=== PATIENT | male | born 1970 | race Two or more races ===

== ENCOUNTER 2025-01-02 20:04 | Inpatient (IN) | payer MEDICAID, OTHER ==
[~2025-01-02] VITALS: Ht 165.1 cm; Wt 70.2 kg
--- NOTE | 2025-01-02 21:12 | ED.PDOC ---
History of Present Illness HPI Comments 54-year-old Albanian-speaking male presents with relative for chief complaint of bilateral lower leg swelling with the associated blisters and purple discoloration and shortness of breath. Significant history for CAD, CHF, DM, HTN, NH, 2x CABG, and pacemaker. 3x week endorsement of symptoms following initial, unprovoked, atraumatic, and gradual onset. CABG and pacemaker placement was done, earlier this year, with the patient is on water pills for 1 month before running out. No recent travel or injuries. Patient denies having any chest pain, cough, congestion, numbness, tingling, or further associated symptoms. REVIEW OF SYSTEMS: General: No fever, no chills, or fatigue HEENT: No sore throat, no earache, no congestion, no neck pain. Cardiac: No chest pain. No palpitations. Lungs: Shortness of breath, no cough. GI: No nausea, no vomiting, no diarrhea, no constipation, no abdominal pain : No dysuria, frequency, or urgency. No hematuria. Musculoskeletal: Bilateral lower leg swelling Neuro: No headache, no dizziness, no weakness PHYSICAL EXAM: General: Awake, alert and oriented. No acute distress. Skin: Skin in warm, dry and intact. Appropriate color for ethnicity. HEENT: The head is normocephalic and atraumatic. Conjunctivae are clear without exudates or hemorrhage. Sclera is non-icteric. EOM are intact. No signs of nystagmus. Eyelids are normal in appearance without swelling or lesions. Oral mucosa is pink and moist Neck: The neck is supple with normal range of motion. No JVD. Cardiac: Heart rate and rhythm are normal. No murmurs, gallops, or rubs are auscultated. Respiratory: No signs of respiratory distress. Lung sounds are clear but diminished at bases, bilaterally; without rales, rhonchi, or wheezes. Abdominal: Abdomen is soft, non-tender without distention, guarding or rigidity. Bowel sounds are present and normoactive in all four quadrants. Extremities: Bilateral lower extremity weeping edema. Blisters and purple discoloration to bilateral lower legs, No rash, no itching. Neurological: The patient is awake, alert and oriented to person, place, and time with normal speech. Speech is clear. There is no facial asymmetry. Psychiatric: Appropriate mood and affect. Good judgement and insight. Chief Complaint: Extremity Swelling Time Seen by MD: 21:00 Reviewed Notes: Nurses Notes, Medications, Allergies Allergies: Coded Allergies: NO KNOWN ALLERGIES (Unverified , 01/02/25) Information Source: Patient, Relative Mode of Arrival: Ambulatory Severity: Moderate Timing: Hours Duration: Since onset Prehospital treatment: None Past Medical History PAST MEDICAL HISTORY: CAD, CHF, DM, HTN, NH Surgical History: CABG (2X), Pacemaker Was a procedure done? Was a procedure done?: No Differential Dx Considerations may include: Differential diagnoses considered includebut arenot limited to acute Bronchitis, Asthma, COPD, Pneumothorax, PE, CHF, Pulmonary HTN, Anemia, CO Poisoning, Methemoglobinemia, Hyperventilation, Metabolic Acidosis, Pulmonary Edema, Pneumonia, ACS, Pericardial Tamponade, Anxiety, other X-Ray, Labs, Meds, VS Vital Signs Date Time Temp Pulse Resp B/P (MAP) Pulse Ox O2 Delivery O2 Flow Rate FiO2 01/03/25 01:12 97.0 89 18 152/97 (115) 95 97.0 01/02/25 20:10 98.0 91 18 148/88 94 98.0 Lab Test 01/02/25 21:22 Range/Units White Blood Count 7.9 4.4-10.8 10^3/uL Red Blood Count 3.46 L 4.5-5.90 10^6/uL Hemoglobin 10.1 L 13.5-17.5 g/dL Hematocrit 30.4 L 41.0-53.0 % Mean Corpuscular Volume 87.7 80.0-100.0 fL Mean Corpuscular Hemoglobin 29.3 28.0-32.0 pg Mean Corpuscular Hemoglobin Concent 33.3 32.0-36.0 g/dL Red Cell Distribution Width 14.7 H 11.8-14.3 % Platelet Count 271 140-450 10^3/uL Mean Platelet Volume 6.8 L 6.9-10.8 fL Neutrophils (%) (Auto) 67.8 37.0-80.0 % Lymphocytes (%) (Auto) 20.8 10.0-50.0 % Monocytes (%) (Auto) 7.0 0.0-12.0 % Eosinophils (%) (Auto) 3.7 0.0-7.0 % Basophils (%) (Auto) 0.7 0.0-2.0 % Neutrophils # (Auto) 5.4 1.6-8.6 10 ^3/uL Lymphocytes # (Auto) 1.7 0.4-5.4 10 ^3/uL Monocytes # (Auto) 0.6 0-1.3 10 ^3/uL Eosinophils # (Auto) 0.3 0-0.8 10 ^3/uL Basophils # (Auto) 0.1 0-0.2 10 ^3/uL Nucleated Red Blood Cells 0.0 % Sodium Level 137 136-145 mmol/L Potassium Level 5.0 3.5-5.1 mmol/L Chloride Level 106 98-107 mmol/L Carbon Dioxide Level 26 20-31 mmol/L Anion Gap 5 5-15 Blood Urea Nitrogen 29 H 9-23 mg/dL Creatinine 1.62 H 0.700-1.30 mg/dL Glomerular Filtration Rate Calc 50 >90 mL/min BUN/Creatinine Ratio 17.9 10.0-20.0 Serum Glucose 164 H 74-106 mg/dL Calcium Level 8.5 L 8.7-10.4 mg/dL Troponin I High Sensitivity 12 </=54 ng/L B-Type Natriuretic Peptide 1919.73 0-100 pg/mL Current Medications Medications (Trade) Dose Ordered Sig/Shakeel Route Start Time Stop Time Status Last Admin Furosemide (Lasix Injection) 40 mg ONCE ONCE IV 01/02/25 22:45 01/02/25 22:53 DC 01/03/25 05:56 Ceftriaxone Sodium 50 ml @ 100 mls/hr ONCE ONCE IV 01/02/25 22:45 01/02/25 23:14 DC 01/03/25 05:56 ATIENT: AGUSTIN LEDESMAACCT: [id number]: [id number] : 1970 LOC: ER ROOM / BED: / AGE / SEX: 54 / M ADM STATUS: REG ER SERVICE 06 ORDERING PHYSICIAN: PITA STEINER MD PROCEDURE(s): CXR1 - CHEST XRAY 1 VIEW REASON: r/o chf ORDER NUMBER(s): [id number], ACCESSION NUMBER(s): [id number] CHEST RADIOGRAPH Indication: r/o chf Technique: 1 view Comparison: None FINDINGS: Lines and Tubes: Left implanted cardiac pacer/ICD with leads terminating over the right atrial appendage and right ventricle. Lungs: Bilateral lower lung predominant interstitial opacities with superimposed patchy airspace disease, including compressive atelectasis in the right lung base. Pleura: Small jqltu-cjolnnr-zhyp-left effusion. Cardiomediastinal contours: Cardiomegaly with post CABG change and left atrial appendage clip. Bones: Median sternotomy wires. IMPRESSION: 1. Heart failure pattern including sknuq-zwkfiac-xwqu-left pleural effusions. Superimposed basilar airspace disease. Time of 1ST Reevaluation: 21:30 Reevaluation 1ST: Unchanged Patient Education/Counseling: Treatment, Other (Need for admission) Family Education/Counseling: Treatment, Other (Need for admission) SEPSIS Sepsis Screen Date sepsis recognized/suspect: Jan 02, 2025 Time Sepsis recognized/suspect: 2013 Recent Procedure: No On Antibiotic Therapy: No Respiratory Rate >20: No Heart Rate >90: Yes Temp<36 C (96.8 F) or >38.3 C: No SBP <90 or MAP <65 mmHG: No New Acute Mental Status Change: No Is the patient on CPAP, BIPAP,: No Physician Orders Chest Xray 1 View (01/02/25 21:07) Electrocardigram (01/02/25 21:07) Vital Signs Date Time Temp Pulse Resp B/P (MAP) Pulse Ox O2 Delivery O2 Flow Rate FiO2 01/03/25 01:12 97.0 89 18 152/97 (115) 95 97.0 01/02/25 20:10 98.0 91 18 148/88 94 98.0 Laboratory Tests Test 01/02/25 21:22 White Blood Count 7.9 10^3/uL (4.4-10.8) Departure 1 Departure Time of Disposition: 22:46 Impression: Primary Impression: CHF exacerbation Additional Impressions: Peripheral edema Cellulitis Renal failure Disposition: ADMITTED INPATIENT Condition: Guarded Comments Extensive evaluation was performed in attempt to identify or rule out: (See differential diagnosis section) The following tests were ordered, and results were reviewed by me and discussed with patient: (See diagnostic results section) The following test were independently interpreted by me: N/A I reviewed and agreed with the following test results read by other providers: Chest x-ray I reviewed the following notes from the pt's past medical encounters: N/A Additional information was gathered from interviewing the following independent historians: Relative Discussion of management or test interpretation with external physician/other qualified health behavioral health care manager: N/A Decision regarding hospitalization or escalation of hospital level of care: Risk and benefits of admission for further treatment of patient's condition was considered. Due to patient's current clinical condition, high risk of decline and poor outcome if discharged and need for further inpatient management and monitoring, patient will be admitted to the hospital. Critical Care Note Critical Care Time?: No Stability Stability form required: No Heart Score Heart Score: Heart Score Response (Comments) Value History N/A 0 EKG N/A 0 Age N/A 0 Risk Factors N/A 0 Troponin N/A 0 Total 0 I personally scribed for PITA STEINER MD ([email or web address]) on 01/02/25 at 21:12. Electronically submitted by Yair Amaya ([email or web address]). I personally scribed for PITA STEINER MD ([email or web address]) on 01/03/25 at 00:59. Electronically submitted by Yair Amaya ([email or web address]). PITA STEINER MD Jan 02, 2025 21:12
[2025-01-02 21:40] LABS: Hematocrit 30.4 % (41.0-53.0); Hemoglobin 10.1 g/dL (13.5-17.5); Mean Corpuscular Hemoglobin 29.3 pg (28.0-32.0); Mean Corpuscular Volume 87.7 fL (80.0-100.0); Nucleated Red Blood Cells % 0.0 %
[2025-01-02 21:44] LABS: Chloride 106 mmol/L (98-107); Potassium 5.0 mmol/L (3.5-5.1); Sodium 137 mmol/L (136-145)
[2025-01-02 21:45] LABS: Anion Gap 5 (5-15); Carbon Dioxide 26 mmol/L (20-31)
[2025-01-02 21:48] LABS: Calcium 8.5 mg/dL (8.7-10.4)
[2025-01-02 21:50] LABS: BUN/Creatinine Ratio 17.9 (10.0-20.0)
[2025-01-02 21:51] LABS: Blood Urea Nitrogen 29 mg/dL (9-23); Glucose 164 mg/dL (74-106)
[2025-01-03] VITALS: PULSE 92; RESP 16; O2SAT 99
--- NOTE | 2025-01-03 01:54 | DVH ---
CHEST RADIOGRAPH Indication: r/o chf Technique: 1 view Comparison: None FINDINGS: Lines and Tubes: Left implanted cardiac pacer/ICD with leads terminating over the right atrial append age and right ventricle. Lungs: Bilateral lower lung predominant interstitial opacities with superimposed patchy airspace dise ase, including compressive atelectasis in the right lung base. Pleura: Small xcmcs-qjrcakh-qikk-left effusion. Cardiomediastinal contours: Cardiomegaly with post CABG change and left atrial appendage clip. Bones: Median sternotomy wires. IMPRESSION: 1. Heart failure pattern including qszbq-assuqbl-mhch-left pleural effusions. Superimposed basilar a irspace disease.
--- NOTE | 2025-01-03 03:07 | DVHHPRES ---
History of Present Illness Resident Creating Document: LISA RAMIREZ RESIDENT History of Present Illness Tyler Rowley is a 54 year old male with past medical history of CAD, CHF, DM, HTN, AL, 2x CABG (09/2024) with pacemaker. The patient presented to the ED with chief complaint of 3 weeks of progressive bilateral lower leg swelling with blisters and purple discoloration, associated with abdominal fullness sensation. Three days ago he start presenting shortness of breath on exertion, and orthopnea. The patient reports hx of AL on 10/23, he had 2 CABG and pacemaker placement in the [place], [place]. The patient recently moved to [place] he has not established care in this city and reports he ran out of medications one month ago. The patient denies chest pain, cough, fever, chills or other symptoms. Initial evaluation showed BNP 1,919.73, Chest x-ray: Heart failure pattern including zetvs-fehcuxy-yace-left pleural effusions. Superimposed basilar airspace disease. Cardiovascular: CAD, CHF, HTN, AL, hyperipidemia Renal/: Other (CKD ) Endocrine: Diabetes Past Surgical History: CABG (CABG x2, pacemaker. ) Family History: CAD, CVA, DM Smoke: Quit (Smoke for 10 years, quit more thatn 20 years ago) ALCOHOL: none Drugs: None Lives: with Family Review of Systems Constitutional: No: Fever, Chills, Sweats, Weakness, Malaise, Other Eyes: No: Pain, Vision change, Conjunctivae inflammation, Eyelid inflammation, Other, Redness ENT: No: Ear pain, Ear discharge, Nose pain, Nose discharge, Nose congestion, Mouth pain, Mouth swelling, Throat pain, Throat swelling, Other Respiratory: Shortness of breath, SOB with excertion; No: Cough, Dry, Wheezing, Hemoptysis, Pleuritic Pain, Sputum, Wheezing, Other Cardiovascular: Orthopnea; No: Chest Pain, Palpitations, Paroxysmal Noc. Dyspnea, Edema, Lt Headedness, Other Gastrointestinal: Other (Abdominal fullness sensation ); No: Nausea, Vomiting, Abdominal Pain, Diarrhea, Constipation, Melena, Hematochezia Genitourinary: No Dysuria, No Frequency, No Incontinence, No Hematuria, No Retention, No Other Musculoskeletal: No: other, neck pain, shoulder pain, arm pain, back pain, hand pain, leg pain, foot pain Skin: No: Rash, Lesions, Jaundice, Bruising, Other Neurological: No: Weakness, Numbness, Incoordination, Change in speech, Confusion, Seizures, Other Allergies: Coded Allergies: NO KNOWN ALLERGIES (Unverified , 01/02/25) Exam Vital Signs Vital Signs Date Time Temp Pulse Resp B/P (MAP) Pulse Ox O2 Delivery O2 Flow Rate FiO2 01/03/25 01:12 97.0 89 18 152/97 (115) 95 97.0 General Appearance: Alert, Oriented X3, Cooperative, mild distress HEENT: Atraumatic, PERRLA, Mucous membr. moist/pink Respiratory: Other (Bilateral Mid bibasilar crackles.) Cardiovascular: Regular rate, Normal S1, Normal S2, No murmurs Abdominal: Normal bowel sounds, Soft, No tenderness, No hepatospenomegaly, Ot her (Distended, possible ascitis. ) Extremities: No clubbing, No cyanosis, Other (Bilateral pitting edema extending to the knees) Skin: No rashes, No breakdown Neuro: Normal gait, Normal speech, Normal tone, Sensation intact Psych/Mental Status: Mental status NL, Mood NL Labs/Xrays Labs Test 01/02/25 21:22 Range/Units White Blood Count 7.9 4.4-10.8 10^3/uL Red Blood Count 3.46 L 4.5-5.90 10^6/uL Hemoglobin 10.1 L 13.5-17.5 g/dL Hematocrit 30.4 L 41.0-53.0 % Mean Corpuscular Volume 87.7 80.0-100.0 fL Mean Corpuscular Hemoglobin 29.3 28.0-32.0 pg Mean Corpuscular Hemoglobin Concent 33.3 32.0-36.0 g/dL Red Cell Distribution Width 14.7 H 11.8-14.3 % Platelet Count 271 140-450 10^3/uL Mean Platelet Volume 6.8 L 6.9-10.8 fL Neutrophils (%) (Auto) 67.8 37.0-80.0 % Lymphocytes (%) (Auto) 20.8 10.0-50.0 % Monocytes (%) (Auto) 7.0 0.0-12.0 % Eosinophils (%) (Auto) 3.7 0.0-7.0 % Basophils (%) (Auto) 0.7 0.0-2.0 % Neutrophils # (Auto) 5.4 1.6-8.6 10 ^3/uL Lymphocytes # (Auto) 1.7 0.4-5.4 10 ^3/uL Monocytes # (Auto) 0.6 0-1.3 10 ^3/uL Eosinophils # (Auto) 0.3 0-0.8 10 ^3/uL Basophils # (Auto) 0.1 0-0.2 10 ^3/uL Nucleated Red Blood Cells 0.0 % Sodium Level 137 136-145 mmol/L Potassium Level 5.0 3.5-5.1 mmol/L Chloride Level 106 98-107 mmol/L Carbon Dioxide Level 26 20-31 mmol/L Anion Gap 5 5-15 Blood Urea Nitrogen 29 H 9-23 mg/dL Creatinine 1.62 H 0.700-1.30 mg/dL Glomerular Filtration Rate Calc 50 >90 mL/min BUN/Creatinine Ratio 17.9 10.0-20.0 Serum Glucose 164 H 74-106 mg/dL Calcium Level 8.5 L 8.7-10.4 mg/dL Troponin I High Sensitivity 12 </=54 ng/L B-Type Natriuretic Peptide 1919.73 0-100 pg/mL SEPSIS Sepsis Screen Date sepsis recognized/suspect: Jan 02, 2025 Time Sepsis recognized/suspect: 2013 Recent Procedure: No On Antibiotic Therapy: No Respiratory Rate >20: No Heart Rate >90: Yes Temp<36 C (96.8 F) or >38.3 C: No SBP <90 or MAP <65 mmHG: No New Acute Mental Status Change: No Is the patient on CPAP, BIPAP,: No Physician Orders Chest Xray 1 View (01/02/25 21:07) Electrocardigram (01/02/25 21:07) Vital Signs Date Time Temp Pulse Resp B/P (MAP) Pulse Ox O2 Delivery O2 Flow Rate FiO2 01/03/25 01:12 97.0 89 18 152/97 (115) 95 97.0 01/02/25 20:10 98.0 91 18 148/88 94 98.0 Laboratory Tests Test 01/02/25 21:22 White Blood Count 7.9 10^3/uL (4.4-10.8) Assessment/Plan Assessment/Plan #Acute on chronic heart failure exacerbation systolic vs diastolic. #Status post AL #Status post CABG x2 + peacemaker Telemetry Furosemide IV EKG ECHOD2 Cardiac Consult #DM2 with hyperglycemia Insulin sliding scale HbA1C #Stage 3a CKD #Cardio-renal syndrome #Peripheral neuropathy Gabapentin 100 mg TID #Chronic Constipation Docusate 100 mg po Cardiac diet DVT prophylaxis PUD prophylaxis Protonic Goals of care discussed with the patient > 35 min. Discussed plan of care with Dr. Valdez Code status: Full code PCP: Not established yet. Plan discussed with: Patient and 2 sisters, the patient agrees with the admission plan. Plan discussed with: Patient, Other (Sisters) Common Visit Codes: 72757-[id number] INP/OBS CARE (HIGH) Secondary Visit Codes: 87980-OQAMAUAK CARE PLAN 30 MINUTES LISA RAMIREZ RESIDENT Jan 03, 2025 03:07
[2025-01-03] MEDS ORDERED: DOCUSATE SOD 100 MG CAP PO PRN ×2 (03:15→14:00)
[2025-01-03] MEDS ORDERED: DEXTROSE (50%) 50ML SYRG IV PRN (03:15)
[2025-01-03] MEDS: cefTRIAXone 1GM/50ML D5W 50 ML IV ONE (05:56)
[2025-01-03] MEDS: FUROSEMIDE 40 MG/4 ML VIAL IV ONE (05:56)
[2025-01-03] MEDS: ACCU-CHEK COMFORT CURVE STRIP VI SCH (05:57)
[2025-01-03] MEDS: InsuLIN REG 1unit/0.01ml Soln (100units/ml) SC SCH (06:17)
[2025-01-03 07:17] LABS: Hematocrit 33.0 % (41.0-53.0); Hemoglobin 10.9 g/dL (13.5-17.5); Mean Corpuscular Hemoglobin 30.0 pg (28.0-32.0); Mean Corpuscular Volume 90.9 fL (80.0-100.0); Nucleated Red Blood Cells % 0.1 %
[2025-01-03 07:31] LABS: Alanine Aminotransferase 29 U/L (7-40); Anion Gap 8 (5-15); BUN/Creatinine Ratio 16.2 (10.0-20.0); Carbon Dioxide 22 mmol/L (20-31); Potassium 5.0 mmol/L (3.5-5.1); Sodium 137 mmol/L (136-145); Total Protein 6.1 g/dL (5.7-8.2)
[2025-01-03 07:32] LABS: Albumin 3.7 g/dL (3.2-4.8); Bilirubin, Total 0.4 mg/dL (0.2-1.0)
[2025-01-03 07:36] LABS: Alkaline Phosphatase 154 U/L (46-116); Blood Urea Nitrogen 25 mg/dL (9-23); Calcium 8.5 mg/dL (8.7-10.4); Chloride 107 mmol/L (98-107); Glucose 170 mg/dL (74-106)
[2025-01-03] MEDS: ENOXAPARIN SOD 40 MG/0.4 ML SYRINGE SC SCH (09:40)
--- NOTE | 2025-01-03 10:21 | DVH ---
CHEST RADIOGRAPH Indication: HF Technique: 1 view Comparison: XY CHEST XRAY 1 VIEW on DOS: 01/03/25 FINDINGS: Lines and Tubes: Left implanted cardiac pacer/ICD with leads terminating over the right atrial append age and right ventricle. Lungs: Bilateral lower lung predominant interstitial opacities with superimposed patchy airspace dise ase, including compressive atelectasis in the right lung base. Pleura: Small chrkz-nsjzsyj-jazo-left effusion. Cardiomediastinal contours: Cardiomegaly with post CABG change and left atrial appendage clip. Bones: Median sternotomy wires. IMPRESSION: No interval change.
[2025-01-03 10:23] LABS: Cholesterol 166 mg/dL (< 200)
[2025-01-03 11:10] LABS: HDL Cholesterol 36 mg/dL (40-59); Triglycerides 157 mg/dL (< 150)
--- NOTE | 2025-01-03 11:13 | DVHINCON2 ---
Date Seen: Jan 03, 2025 Referring Physician MD [place] resident Reason for Consultation CHF exacerbation, status post CABG History of Present Illness This is a Maltese-speaking 54-year-old male patient who presents to the emergency room with chief complaint of worsening shortness of breath and bilateral lower extremity edema. He reports worsening symptoms for four days prior to emergency room arrival. Cardiology has been consulted at this time for CHF exacerbation and recent CABG. No twelve lead was done upon emergency room arrival. A twelve lead electrocardiogram was done by the ER veterinary technician instructor at time of assessment and reveals normal sinus rhythm with left bundle branch block. The patient denies any chest pain. Initial troponin level was negative. Initial BNP level of 1919.73pg/mL. The patient is a poor historian. Significant past medical history includes severe coronary artery disease with double-vessel CABG, presence of ICD ([employer]), myocardial infarction, congestive heart failure, hypertension, dyslipidemia, and type 2 diabetes m ellitus. The patient reports he has not established a brown sourer in the outpatient setting. Past Medical History Past medical history reviewed. No other significant than mentioned above. Past Surgical History Double-vessel CABG in September 2024 ICD implantation ([facility]) in September 2024 Family History Family history reviewed. Social History Denies the use of tobacco, alcohol or illicit drugs. Allergies: Coded Allergies: NO KNOWN ALLERGIES (Unverified , 01/02/25) Home Meds Unable to verify home medications; patient does not know them Current Medications Current Medications Medications (Trade) Dose Ordered Sig/Shakeel Route PRN Reason Start Time Stop Time Status Last Admin Docusate Sodium (Colace Capsule) 100 mg BIDPRN PRN PO FOR CONSTIPATION 01/03/25 03:15 Enoxaparin Sodium (Lovenox) 40 mg DAILY SC 01/03/25 10:00 01/03/25 09:40 Diagnostic Test (Pha) (Accu-Chek Comfort Curve T) 1 strip Q6HR 01/03/25 06:00 01/03/25 05:57 Insulin Human Regular (InsuLIN R) Q6HR SC 01/03/25 06:00 01/03/25 06:17 Dextrose 50 ml UD PRN IV Blood Sugar LESS THAN 60 01/03/25 03:15 Ceftriaxone Sodium 50 ml @ 100 mls/hr DAILY@09 IV 01/04/25 09:00 Furosemide (Lasix Injection) 40 mg DAILY IV 01/03/25 10:00 Review of Systems Constitutional: No symptom reported Ears, Nose, & Throat: No symptom reported Eyes: No symptom reported Neurological: No symptoms reported Pulmonary/Respiratory: Shortness of breath Cardiovascular: Bilateral lower extremity edema Gastrointestinal: No symptom reported Genitourinary: No symptom reported Musculoskeletal: No symptom reported Skin: No symptom reported Psychiatric: No symptom reported Endocrine: No symptom reported Hematologic/Lymphatic: No symptom reported Vital Signs Vital Signs Date Time Temp Pulse Resp B/P (MAP) Pulse Ox O2 Delivery O2 Flow Rate FiO2 01/03/25 08:00 91 01/03/25 05:56 150/96 01/03/25 01:12 97.0 18 95 97.0 Physical Exam General Appearance: Cooperative. Well-developed. Well-nourished. No acute distress. Pulmonary/Respiratory: Diminished throughout Cardiovascular/Chest: Regular rate and rhythm. Peripheral Pulses: 2+ Radial (R). 2+ Radial (L). 2+ Pedal (R). 2+ Pedal (L) Abdominal Exam: Normal bowel sounds. Ankle Exam: 4+ pitting edema Lower extremities: 4+ pitting edema Neuro/Mental Status: A/OX4, coherent. Thoughts/Psych: Normal thought pattern. Appropriate mood and affect. Good judgment and insight. Appearance: No acute distress. Skin Exam: Vertical scar to chest, without signs of infection. Skin warm and dry Labs/Diagnostic Data Labs Test 01/03/25 07:04 01/03/25 06:03 01/02/25 21:22 Range/Units White Blood Count 7.3 4.4-10.8 10^3/uL Red Blood Count 3.63 L 4.5-5.90 10^6/uL Hemoglobin 10.9 L 13.5-17.5 g/dL Hematocrit 33.0 L 41.0-53.0 % Mean Corpuscular Volume 90.9 80.0-100.0 fL Mean Corpuscular Hemoglobin 30.0 28.0-32.0 pg Mean Corpuscular Hemoglobin Concent 33.0 32.0-36.0 g/dL Red Cell Distribution Width 14.4 H 11.8-14.3 % Platelet Count 233 140-450 10^3/uL Mean Platelet Volume 6.8 L 6.9-10.8 fL Neutrophils (%) (Auto) 65.4 37.0-80.0 % Lymphocytes (%) (Auto) 21.0 10.0-50.0 % Monocytes (%) (Auto) 8.1 0.0-12.0 % Eosinophils (%) (Auto) 4.8 0.0-7.0 % Basophils (%) (Auto) 0.7 0.0-2.0 % Neutrophils # (Auto) 4.8 1.6-8.6 10 ^3/uL Lymphocytes # (Auto) 1.5 0.4-5.4 10 ^3/uL Monocytes # (Auto) 0.6 0-1.3 10 ^3/uL Eosinophils # (Auto) 0.4 0-0.8 10 ^3/uL Basophils # (Auto) 0.1 0-0.2 10 ^3/uL Nucleated Red Blood Cells 0.1 % Sodium Level 137 136-145 mmol/L Potassium Level 5.0 3.5-5.1 mmol/L Chloride Level 107 98-107 mmol/L Carbon Dioxide Level 22 20-31 mmol/L Anion Gap 8 5-15 Blood Urea Nitrogen 25 H 9-23 mg/dL Creatinine 1.54 H 0.700-1.30 mg/dL Glomerular Filtration Rate Calc 53 >90 mL/min BUN/Creatinine Ratio 16.2 10.0-20.0 Serum Glucose 170 H 74-106 mg/dL Hemoglobin A1c 6.7 H <5.7 % A1C Calcium Level 8.5 L 8.7-10.4 mg/dL Magnesium Level 2.1 1.6-2.6 mg/dL Total Bilirubin 0.4 0.2-1.0 mg/dL Aspartate Amino Transferase (AST) 25 13-40 U/L Alanine Aminotransferase (ALT) 29 7-40 U/L Alkaline Phosphatase 154 H 46-116 U/L Total Protein 6.1 5.7-8.2 g/dL Albumin 3.7 3.2-4.8 g/dL Thyroid Stimulating Hormone (TSH) 4.78 0.55-4.78 uIU/mL POC Glucose 190 H 70-106 mg/dl Troponin I High Sensitivity 12 </=54 ng/L B-Type Natriuretic Peptide 1919.73 0-100 pg/mL Assessment Acute on chronic decompensated unspecified heart failure, NYHA class IV Severe coronary artery disease status post double-vessel CABG Presence of ICD ([employer] [facility]) History myocardial infarction Hypertension Dyslipidemia Type 2 diabetes mellitus Acute kidney injury Plan/Recommendation We will continue with the following plan/recommendations (Dr. Bush): * Transthoracic echocardiogram to evaluate cardiac function * Initiate dobutamine drip for inotropic support * Guideline directed medical therapy for CHF as tolerated by renal function * Hold beta-blockers until patient off dobutamine drip * Aggressive diuresis as tolerated; closely monitor kidney function * Strict intake and output, daily weights, maintain fluid restriction * Antiplatelet therapy and lipid-lowering agent * Close Cardiac surveillance * Obtain medical records from facility in [place] where patient had CABG Thank you for allowing us to care for this patient. Please call with any questions or concerns. Critical care time spent: 44 minutes This medical document was created using an electronic medical record system with voice recognition software and computerized dictation system. Although this document has been carefully reviewed, there might still be some phonetic and typographical errors. Occasional wrong-word or ``sound-alike substitutions may have occurred due to the inherent limitations of voice recognition software. These areas are purely typographical due to imperfections of the software programs and do not reflect any compromise in the patient's medical care. Please read the chart carefully and recognize, using context, where these substitutions have occurred. Plan discussed with: Patient NYHA Physical activity limitations: Class4(Severe)discomfort (w any activit,symptoms at rest) Date of Service: Jan 03, 2025 Billing Provider: ZAHIDA VANCE Cardiology Common Codes: 11312-FYKFSKX INP/OBS CARE (High) Cardiology Consultation Codes: 94623-[id number] CONSULT <45MIN ZAHIDA VANCE Jan 03, 2025 11:13
[2025-01-03] MEDS: FUROSEMIDE 40 MG/4 ML VIAL IV SCH ×2 (11:28→17:44)
[2025-01-03 12:00] VITALS: PULSE 92; RESP 16; O2SAT 99
[2025-01-03] MEDS: DOXYCYCLINE 100MG/100ML 100 ML IV SCH (13:45)
[2025-01-03] MEDS ORDERED: FUROSEMIDE 40 MG/4 ML VIAL IV SCH (13:45)
[2025-01-03] MEDS: DOBUTamine 1000MCG/ML 250 ML IV SCH (14:33)
--- NOTE | 2025-01-03 14:55 | DVH ---
US BiLat Lower DVT HISTORY: edema COMPARISON: None TECHNIQUE: Duplex doppler evaluation of the deep venous system of the lower extremity from the common femoral veins, superficial femoral vein, great saphenous vein, deep femoral vein, popliteal vein, an d calf veins, including color doppler and spectral/pulsed waveform analysis, was performed. FINDINGS: Right: - Common femoral vein: Compressible - Deep femoral vein: Compressible - Femoral vein: Compressible - Popliteal vein: Compressible - Posterior tibial vein: Waveforms present - Other: Nothing Left: - Common femoral vein: Compressible - Deep femoral vein: Compressible - Femoral vein: Compressible - Popliteal vein: Compressible - Posterior tibial vein: Waveforms present - Other: Nothing IMPRESSION: No right or left lower extremity deep venous thrombosis.
[2025-01-03] MEDS: ATORVASTATIN 20 MG TAB PO ONE (17:41)
[2025-01-03] MEDS: DOCUSATE SOD 100 MG CAP PO ONE (17:41)
[2025-01-03] MEDS: SPIRONOLACTONE 25 MG TAB PO ONE (17:41)
--- NOTE | 2025-01-03 17:41 | DVH ---
INDICATION: CEllulitis COMPARISON: None TECHNIQUE: CT of the right was performed without contrast. Volume transverse images were obtained and reconstructed in multiple planes using bone and soft tissue algorithms. CONTRAST: None Radiation Dose Information: CT Dose: CTDI volume is 15.5 mGy. Dose-length product is 425.37 mGy*cm FINDINGS: The alignment is normal. The joint spaces are normal. There is no fracture, dislocation, or focal osseous lesions. The soft tissues are normal. IMPRESSION: 1. SUBCUTANEOUS EDEMA. 2. No drainable fluid collections. 3. IF OSTEOMYELITIS IS OF CLINICAL CONCERN RECOMMEND 3 PHASE BONE SCAN. 4. All CT scans at this medical facility are performed using dose modulation techniques as appropriat e to a performed exam including the following: Automated exposure control was utilized; adjustment of the MA and/or KV according to patient size; and use of iterative reconstruction technique.
[2025-01-03] MEDS: CLOPIDOGREL BISULFATE 75 MG TAB PO ONE (17:42)
[2025-01-03] MEDS: CARVEDILOL 3.125 MG TAB PO ONE (17:43)
--- NOTE | 2025-01-03 19:25 | DVH ---
EXAM: CT CT L FOOT WO CONTRAST INDICATION: Cellulitis TECHNIQUE: Axial images of left foot have been obtained along with coronal and sagittal reformatted i mages. All CT scans at this facility use dose modulation, iterative reconstruction, and/or weight bas ed dosing when appropriate to reduce radiation dose to as low as reasonably achievable. COMPARISON: None FINDINGS: BONES: No CT evidence of an acute fracture or aggressive osseous lesion. No periosteal reaction. No o sseous erosion. MUSCLES: No abnormal attenuation. JOINT SPACES: No joint effusion. TENDONS/LIGAMENTS: Intact. OTHER: Diffusely extensive skin thickening soft tissue edema. No fluid collection. Overall imaging m ost likely compatible with cellulitis. Osteoarthrosis IMPRESSION: 1. Diffusely extensive skin thickening soft tissue edema. No fluid collection. Overall imaging most likely compatible with cellulitis versus bland edema.
--- NOTE | 2025-01-03 19:26 | DVHPNRES ---
Progress Note Date Seen: Jan 03, 2025 Resident Creating Document: SINDHU GILLILAND RESDIENT Medical Necessity Reason Pt with a Central, PICC or Fol: No Subjective Review of Systems 54 year old male with past medical history of Diabetes Mellitus, Hypertension, Chronic kidney disease and Coronary artery disease (status post CABG in September 2024), status ICD, end-stage heart failure (reduced ejection fraction) present to the ED with complaints of bilateral lower leg swelling. The swelling was progressive over the past 3 weeks. The patient also complains of orthopnea and Shortness of breath which started when the swelling did. He also complains of abdominal pain and constipation for the past 3 days. The patient denies fever, chest pain, cough, or any recent sick contacts or chest trauma. There was an episode of myocardial infarction on Sep, 2024. Three weeks later a pacemaker was placed. Previous hospitalization: September 2024 for CABG PMHx: Diabetes Mellitus, Hypertension, Chronic kidney disease and Coronary artery disease (status post CABG in September 2024), status ICD, end-stage heart failure (reduced ejection fraction) PSHx: September 2024 for CABG Family history: Non contributory Social history: Smoked for 2 years, stopped 3 years ago. Home medication: Aspirin 81mg, Clopidogrel 75mg, Atorvastatin 40mg, Bumetanide 1mg, Hydralazine 25mg, Hydrocodone/Acetaminophen 5/325, Carvedilol 625mg, stopped taking medicine 1 month back Allergic history: None General: patient denies fever, fatigue, weakness, sweating, any recent changes in appetite and weight HEENT: No headaches, visiual changes, hearing loss, tinnitus, nasal congestion and discharge, and sore throat. Cardiovascular: Complaints of breathlessness on exertions, orthopnea. Denies chest pain, palpitations, Respiratory: Complaints of Shortness of Breath. No cough, and wheezing. Gastrointestinal: Complaints of abdominal pain. Denies nausea, vomiting, dysphagia, odynophagia, heartburn, flatulence, bloating, diarrhea, constipation, change in stool, or blood in stool. Genitourinary: No dysuria, hematuria, discharge, frequency, urgency, nocturia, incontinence, and urinary retention. Endocrine: No heat or cold intolerance, polydipsia, polyuria, and polyphagia. Neurological: No dizziness, extremity weakness and numbness, tremors, gait disturbance, seizures, and memory impairment. Psychiatric: Denies depression, anxiety,or insomnia. Musculoskeletal: Denies neck pain, stiffness and swelling, back pain, muscle weakness, joint pain, stiffness, swelling, or limited range of motion. Skin: Swelling in bilateral legs, with wounds and pigmentation. No rashes, itching, changes in hair, nail, and breast. Hematologic/Lymphatic: Denies easy bruising, bleeding tendencies, or lymph node enlargement. Today, the patient was seen and examined at the bedside. Patient was feeling better since admission but still complained of shortness of breaths and bilateral lower limb swelling and discomfort. Objective vital signs Vital Sign Date Time Temp Pulse Resp B/P (MAP) Pulse Ox O2 Delivery O2 Flow Rate FiO2 01/03/25 12:00 92 16 172/103 (126) 98 01/03/25 12:00 Nasal Cannula* 2 28 01/03/25 01:12 97.0 97.0 Total Intake and Output 01/02/25 01/02/25 01/03/25 15:00 23:00 07:00 Intake Total 50 ml Balance 50 ml medications Current Medications Medications Dose Ordered Sig/Shakeel Route Start Time Stop Time Status Last Admin Dose Admin Enoxaparin Sodium 40 mg DAILY SC 01/03/25 10:00 01/03/25 09:40 40 MG Diagnostic Test (Pha) 1 strip Q6HR 01/03/25 06:00 01/03/25 12:00 1 STRIP Insulin Human Regular Q6HR SC 01/03/25 06:00 01/03/25 06:17 3 UNITS Dextrose 50 ml UD PRN IV 01/03/25 03:15 Dobutamine HCl/ Dextrose 250 ml @ 11.595 mls/ hr [id number] IV 01/03/25 11:30 Aspirin 81 mg DAILY PO 01/04/25 10:00 Clopidogrel Bisulfate 75 mg DAILY PO 01/04/25 10:00 Atorvastatin Calcium 80 mg HS PO 01/03/25 22:00 Cefepime HCl 50 ml @ 12.5 mls/hr Q12HR IV 01/03/25 22:00 Doxycycline Hyclate 100 ml @ 50 mls/hr Q12H IV 01/03/25 13:45 Spironolactone 25 mg DAILY PO 01/04/25 10:00 Empaglifozin 10 mg DAILY PO 01/04/25 10:00 Carvedilol 3.125 mg Q12HR PO 01/03/25 22:00 Furosemide 80 mg DAILY IV 01/03/25 14:00 Docusate Sodium 100 mg DAILYPRN PRN PO 01/03/25 14:00 Examination General Appearance: Alert, Oriented X3, Cooperative, in moderate respiratory distress HEENT: Atraumatic, PERRLA, EOMI, Mucous membrane moist/pink Respiratory: Bilateral lower zone Crackles+, Normal air movement Cardiovascular: Regular rate, Normal S1, Normal S2, No murmurs, no chest wall tenderness Abdominal: Tenderness+ in the epigastric region, Normal bowel sounds, Soft, No hepatospenomegaly, No masses Extremities: No clubbing, No cyanosis, No edema, Normal pulses, No tenderness/swelling Skin: Bilateral grade 3 pedal pitting edema. with wounds, ruptured blisters, oozing and pigmentation. No rashes, No breakdown, No significant lesion Neuro: Normal gait, Normal speech, Strength at 5/5 X4 ext, Normal tone, Sensation intact, Cranial nerves 3-12 NL, Reflexes 2+ Psych/Mental Status: Mental status NL, Mood NL laboratory and microbiology Laboratory Tests 01/03/25 07:04 Test 01/03/25 07:04 Range/Units Serum Glucose 170 H 74-106 mg/dL Labs and/or images reviewed: Labs reviewed by me, Image(s) reviewed by me Problem List/Assessment/Plan Problem List/Assessment/Plan Acute hypoxic respiratory failure, likely due to systolic heart failure exacerbation Acute on chronic systolic heart failure Ischemic end-stage heart failure Volume overload, due to above Status post CABG Status post ICD Hypertension * EKGs showed LBBB, sinus rhythm with no significant ST or T-wave changes * Trop I within normal limits, BNP raised at 1900s * Chest x-ray showed, bilateral lower zone infiltrate * IV diuretic Lasix 80 mg daily * Resume aspirin, atorvastatin and clopidogrel * Started on Jardiance and spironolactone and carvedilol * Cardiology consulted, recommended medical management Ruled out DVT * Doppler ultrasound of lower limb shows no DVT Possible cellulitis of lower limb * CT scan showed, subcutaneous edema * Recommended bone scan for to exclude osteomyelitis * Empiric antibiotic, cefepime and doxycycline Possible FLAVIA on CKD, likely VMN, baseline record not available * IV diuretic for possible congestive nephropathy Diabetes type 2 * HB A1c shows 6.7 * Insulin regular according to mild sliding scale DIET: Cardiac diet DVT PROPHYLAXIS: Lovenox BOWEL REGIMEN: Colace CODE STATUS: Goal of care discussed for 21 minutes, full code DISPOSITION: Telemetry RECONCILED HOME MEDS: Aspirin 81mg, Clopidogrel 75mg, Atorvastatin 40mg, Bumetanide 1mg, Hydralazine 25mg, Hydrocodone/Acetaminophen 5/325, Carvedilol 625mg PCP: None, consulted social Service Patient's status and plan discussed with the patient and patient's at the bedside. Case discussed with Dr. Vargas Plan discussed with: Patient Date of Service: Jan 03, 2025 Billing Provider: ELSIE VARGAS MD Common Visit Codes: [id number] INP/OBS CARE(HIGH) NEFTALI BLANCO RESIDENT Jan 03, 2025 16:09 ELSIE VARGAS MD Jan 08, 2025 20:02
--- NOTE | 2025-01-03 20:14 | DVHSR ---
APPROVED REPORT EXAM: Two-dimensional and M-mode echocardiogram with Doppler and color Doppler. Blood Pressure: 150/96 mmHg INDICATION CHF exacerbation, status post CABG RISK FACTORS Height: 65, Weight: 170 DIMENSIONS LVDd5.3 (3.8-5.7cm)LA (2D)4.5 (1.9-4.0cm)Aortic Root3.8 (2.0-3.7cm) LVDs3.9 (2.5-4.0cm)LA (MM) (1.9-4.0cm)Aortic Cusp Exc1.8 (1.5-2.0cm) EF (%) 50.0 (55-70%)Rt. Atrium4.4 (1.9-4.0cm)Asc. Aorta cm IVSd1.4 (0.7-1.1cm)RV (D) (1.8-2.4cm) PWd1.2 (0.7-1.1cm) Mitral Valve MitralMitral Stenosis E wave1.14m/sMV Mean GR.mmHg A wavem/sMV Peak GR.107mmHg E/A ratio0.02D MVAcm2 Aortic Valve Aortic ValveAortic Stenosis V10.66m/Danielle Mean GR.2mmHg V21.14m/Danielle Peak GR.5mmHg LVOT Diameter2.4 (1.8-2.4cm)Doppler AVA2.62cm2 AI P 1/2 Wucz711.31ms Pulmonic Valve V21.02m/s Tricuspid Valve TR Velocity3.34m/s [id number] Other Information Technically limited study due to patient sitting straight up during exam due to breathing. Conclusion MODERATELY DILATED AND HYPOKINETIC LV LV EF IS ONLY 25% MODERATELY DILATED LA AND RA MODERATELY SEVERE MR AND TR SEVERE PULMONARY HYPERTENSION RVSP IS 57 MM OF HG AND IS VERY HIGH NO EFFUSION GROSSLY NORMAL VALVES
[2025-01-03] MEDS: ATORVASTATIN 20 MG TAB PO SCH (20:46)
[2025-01-03] MEDS: CEFEPIME 1GM/ 50ML 50 ML IV SCH (20:51)
[2025-01-03] MEDS: CARVEDILOL 3.125 MG TAB PO SCH (20:51)
[2025-01-03 22:02] VITALS: BP 160/111; PULSE 88; RESP 17; TEMP 97.4; O2SAT 96
--- NOTE | 2025-01-03 22:31 | DVHINCON2 ---
Date Seen: Jan 03, 2025 Referring Physician MD [place] resident Reason for Consultation CHF exacerbation, status post CABG History of Present Illness This is a [place] Islander-speaking 54-year-old male with a past medical history of severe coronary artery disease with double-vessel CABG, presence of ICD ([facility]), myocardial infarction, congestive heart failure, hypertension, dyslipidemia, and type 2 diabetes mellitus who presents to the ED with complaint of worsening shortness of breath and bilateral lower extremity edema. He reports worsening symptoms for four days prior to emergency room arrival. Cardiology has been consulted at this time for CHF exacerbation and recent CABG. No twelve lead was done upon emergency room arrival. A twelve lead electrocardiogram was done by the ER furniture repair technician at time of assessment and reveals normal sinus rhythm with left bundle branch block. The patient denies any chest pain. Initial troponin level was negative. Initial BNP level of 1919.73pg/mL. The patient is a poor historian. The patient reports he has not established a new order clerk in the outpatient setting. Chest x-ray showed heart failure pattern including [id number]-left pleural effusions, superimposed basilar airspace disease Past Medical History Past medical history reviewed. No other significant than mentioned above. Past Surgical History Double-vessel CABG in September 2024 ICD implantation ([facility]) in September 2024 Allergies: Coded Allergies: NO KNOWN ALLERGIES (Unverified , 01/02/25) Current Medications Current Medications Medications (Trade) Dose Ordered Sig/Shakeel Route PRN Reason Start Time Stop Time Status Last Admin Docusate Sodium (Colace Capsule) 100 mg BIDPRN PRN PO FOR CONSTIPATION 01/03/25 03:15 01/03/25 14:03 DC Enoxaparin Sodium (Lovenox) 40 mg DAILY SC 01/03/25 10:00 01/03/25 09:40 Diagnostic Test (Pha) (Accu-Chek Comfort Curve T) 1 strip Q6HR 01/03/25 06:00 01/03/25 12:00 Insulin Human Regular (InsuLIN R) Q6HR SC 01/03/25 06:00 01/03/25 06:17 Dextrose 50 ml UD PRN IV Blood Sugar LESS THAN 60 01/03/25 03:15 Ceftriaxone Sodium 50 ml @ 100 mls/hr DAILY@09 IV 01/04/25 09:00 01/03/25 13:46 DC Furosemide (Lasix Injection) 40 mg DAILY IV 01/03/25 10:00 01/03/25 13:46 DC Dobutamine HCl/ Dextrose 250 ml @ 11.595 mls/ hr [id number] IV 01/03/25 11:30 Furosemide (Lasix Injection) 40 mg BID IV 01/03/25 13:45 01/03/25 13:51 DC Aspirin 81 mg DAILY PO 01/04/25 10:00 Clopidogrel Bisulfate (Plavix) 75 mg DAILY PO 01/04/25 10:00 Atorvastatin Calcium (Lipitor) 80 mg HS PO 01/03/25 22:00 Cefepime HCl 50 ml @ 12.5 mls/hr Q12HR IV 01/03/25 22:00 Doxycycline Hyclate 100 ml @ 50 mls/hr Q12H IV 01/03/25 13:45 Spironolactone (Aldactone) 25 mg DAILY PO 01/04/25 10:00 Empaglifozin (Jardiance) 10 mg DAILY PO 01/04/25 10:00 Carvedilol (Coreg Tablet) 3.125 mg Q12HR PO 01/03/25 22:00 Furosemide (Lasix Injection) 80 mg DAILY IV 01/03/25 14:00 Docusate Sodium (Colace Capsule) 100 mg DAILYPRN PRN PO FOR CONSTIPATION 01/03/25 14:00 Review of Systems Constitutional: No symptom reported Ears, Nose, & Throat: No symptom reported Eyes: No symptom reported Neurological: No symptoms reported Pulmonary/Respiratory: Shortness of breath Cardiovascular: Bilateral lower extremity edema Gastrointestinal: No symptom reported Genitourinary: No symptom reported Musculoskeletal: No symptom reported Skin: No symptom reported Psychiatric: No symptom reported Endocrine: No symptom reported Hematologic/Lymphatic: No symptom reported Vital Signs Vital Signs Date Time Temp Pulse Resp B/P (MAP) Pulse Ox O2 Delivery O2 Flow Rate FiO2 01/03/25 12:00 92 16 172/103 (126) 98 01/03/25 12:00 Nasal Cannula* 2 28 01/03/25 01:12 97.0 97.0 Physical Exam GENERAL: Alert and oriented x 3. No acute distress. EYES: PERRL, EOMI. Anicteric. HENT: Moist mucous membranes. LUNGS: Clear to auscultation bilaterally. CARDIOVASCULAR: Regular rate and rhythm. ABDOMEN: Soft, nontender and nondistended. EXTREMITIES: 4+ pitting edema. NEUROLOGIC: No focal neurological deficits. SKIN: Warm, dry. Vertical scar to chest, without signs of infection. Labs/Diagnostic Data Labs Test 01/03/25 14:44 01/03/25 07:04 01/02/25 21:22 Range/Units POC Glucose 113 H 70-106 mg/dl White Blood Count 7.3 4.4-10.8 10^3/uL Red Blood Count 3.63 L 4.5-5.90 10^6/uL Hemoglobin 10.9 L 13.5-17.5 g/dL Hematocrit 33.0 L 41.0-53.0 % Mean Corpuscular Volume 90.9 80.0-100.0 fL Mean Corpuscular Hemoglobin 30.0 28.0-32.0 pg Mean Corpuscular Hemoglobin Concent 33.0 32.0-36.0 g/dL Red Cell Distribution Width 14.4 H 11.8-14.3 % Platelet Count 233 140-450 10^3/uL Mean Platelet Volume 6.8 L 6.9-10.8 fL Neutrophils (%) (Auto) 65.4 37.0-80.0 % Lymphocytes (%) (Auto) 21.0 10.0-50.0 % Monocytes (%) (Auto) 8.1 0.0-12.0 % Eosinophils (%) (Auto) 4.8 0.0-7.0 % Basophils (%) (Auto) 0.7 0.0-2.0 % Neutrophils # (Auto) 4.8 1.6-8.6 10 ^3/uL Lymphocytes # (Auto) 1.5 0.4-5.4 10 ^3/uL Monocytes # (Auto) 0.6 0-1.3 10 ^3/uL Eosinophils # (Auto) 0.4 0-0.8 10 ^3/uL Basophils # (Auto) 0.1 0-0.2 10 ^3/uL Nucleated Red Blood Cells 0.1 % Sodium Level 137 136-145 mmol/L Potassium Level 5.0 3.5-5.1 mmol/L Chloride Level 107 98-107 mmol/L Carbon Dioxide Level 22 20-31 mmol/L Anion Gap 8 5-15 Blood Urea Nitrogen 25 H 9-23 mg/dL Creatinine 1.54 H 0.700-1.30 mg/dL Glomerular Filtration Rate Calc 53 >90 mL/min BUN/Creatinine Ratio 16.2 10.0-20.0 Serum Glucose 170 H 74-106 mg/dL Hemoglobin A1c 6.7 H <5.7 % A1C Calcium Level 8.5 L 8.7-10.4 mg/dL Magnesium Level 2.1 1.6-2.6 mg/dL Total Bilirubin 0.4 0.2-1.0 mg/dL Aspartate Amino Transferase (AST) 25 13-40 U/L Alanine Aminotransferase (ALT) 29 7-40 U/L Alkaline Phosphatase 154 H 46-116 U/L Total Protein 6.1 5.7-8.2 g/dL Albumin 3.7 3.2-4.8 g/dL Triglycerides Level 157 H < 150 mg/dL Cholesterol Level 166 < 200 mg/dL LDL Cholesterol 106 H < 100 mg/dL HDL Cholesterol 36 L 40-59 mg/dL Thyroid Stimulating Hormone (TSH) 4.78 0.55-4.78 uIU/mL Troponin I High Sensitivity 12 </=54 ng/L B-Type Natriuretic Peptide 1919.73 0-100 pg/mL Assessment Acute on chronic decompensated unspecified heart failure, NYHA class IV. Severe coronary artery disease status post double-vessel CABG. Presence of ICD ([facility]). History myocardial infarction. Hypertension. Dyslipidemia. Type 2 diabetes mellitus. Acute kidney injury. Plan/Recommendation I agree with your ongoing assessment and care of plan. Patient has been seen by Adrianna Adrian NP on my behalf, her and I discussed the plan with the patient. Transthoracic echocardiogram to evaluate cardiac function. Initiate dobutamine drip for inotropic support. Guideline directed medical therapy for CHF as tolerated by renal function. Hold beta-blockers until patient off dobutamine drip. Aggressive diuresis as tolerated; closely monitor kidney function. Strict intake and output, daily weights, maintain fluid restriction. Antiplatelet therapy and lipid-lowering agent. Close Cardiac surveillance. Obtain medical records from facility in [place] where patient had CABG . Additional plan as per the hospital course. Plan discussed with: Patient NYHA Physical activity limitations: Class4(Severe)discomfort Date of Service: Jan 03, 2025 Billing Provider: KACY DE DIOS MD Cardiology Common Codes: [id number] INP/OBS CARE (High) Cardiology Consultation Codes: [id number] CONSULT <45MIN KACY DE DIOS MD Jan 03, 2025 16:00
[2025-01-04] VITALS (8 sets, daily range): BP systolic 138–158; BP diastolic 79–98; PULSE 72–82; RESP 18; TEMP 97.3–97.9; O2SAT 90–98
[2025-01-04 07:30] LABS: Hematocrit 28.1 % (41.0-53.0); Hemoglobin 9.5 g/dL (13.5-17.5); Mean Corpuscular Hemoglobin 29.6 pg (28.0-32.0); Mean Corpuscular Volume 87.2 fL (80.0-100.0); Nucleated Red Blood Cells % 0.0 %
[2025-01-04 07:54] LABS: Alanine Aminotransferase 19 U/L (7-40); Albumin 3.4 g/dL (3.2-4.8); Anion Gap 6 (5-15); BUN/Creatinine Ratio 15.2 (10.0-20.0); Carbon Dioxide 27 mmol/L (20-31); Chloride 106 mmol/L (98-107); Glucose 105 mg/dL (74-106); Potassium 4.6 mmol/L (3.5-5.1); Sodium 139 mmol/L (136-145)
[2025-01-04 07:55] LABS: Bilirubin, Total 0.5 mg/dL (0.2-1.0)
[2025-01-04 08:01] LABS: Alkaline Phosphatase 129 U/L (46-116); Blood Urea Nitrogen 26 mg/dL (9-23); Calcium 8.7 mg/dL (8.7-10.4); Total Protein 5.5 g/dL (5.7-8.2)
[2025-01-04] MEDS ORDERED: cefTRIAXone 1GM/50ML D5W 50 ML IV SCH (09:00)
--- NOTE | 2025-01-04 09:20 | DVH ---
EXAM: XY CHEST TWO VIEWS ROUTINE CLINICAL HISTORY: CHF EXACERBATION COMPARISON: XY CHEST XRAY 1 VIEW on DOS: 01/03/25, XY CHEST XRAY 1 VIEW on DOS: 01/03/25 TECHNIQUE: Frontal and lateral view of the chest was obtained FINDINGS: Lines and Tubes: Cardiac pacemaker projects over left chest wall. Lungs: Multifocal airspace opacities Pleura: Small right pleural effusion. No pneumothorax. Cardiomediastinal contours: Unremarkable. Left atrial appendage clip visualized Bones: No acute osseous abnormality. IMPRESSION: Multifocal airspace opacities. Small right pleural effusion.
[2025-01-04] MEDS: EMPAGLIFLOZIN 10 MG TAB PO SCH (09:56)
[2025-01-04] MEDS: SPIRONOLACTONE 25 MG TAB PO SCH (09:56)
[2025-01-04] MEDS: CLOPIDOGREL BISULFATE 75 MG TAB PO SCH (09:57)
[2025-01-04 12:54] LABS: Urine Protein, UAD 1+ (Negative)
[2025-01-04 13:17] LABS: Amphetamine Screen, Urine Neg (NEGATIVE); Barbiturate Scree,Urine Neg (NEGATIVE); Benzodiazephine Screen, Urine Neg (NEGATIVE); Cannabinoid Screen, Urine Neg (NEGATIVE); Cocaine Screen, Urine Neg (NEGATIVE); Opiate Scree,Urine Neg (NEGATIVE); Phencyclidine Screen, Urine Neg (NEGATIVE)
--- NOTE | 2025-01-04 13:33 | ECG ---
[facility] Test Date: 2025-01-03 Test Time: 10:44:06 Pat Name: AGUSTIN MARTINEZ Department: ED Room: 0271T Gender: M Mutual Fund Analyst: SAM : 1970 Requested By: PITA STEINER Order Number: [id number] Reading MD: Nikolay Panchal Measurements Intervals [place] Rate: 91 P: 69 ME: 191 QRS: -65 QRSD: 159 T: 141 QT: 429 QTc: 528 Interpretive Statements Sinus rhythm Left bundle branch block Electronically Signed On 01-09-2025 17:28:28 PDT by Nikolay Panchal Please click the below link to view image of tracing.
--- NOTE | 2025-01-04 14:26 | DVHPN2 ---
Reviewed: Care Plan, H&P, Labs, Medications, Previous Orders, Radiology Changes from previous H/P or p: No Changes Eyes: No Pain, No Vision change, No Conjunctivae inflammation, No Eyelid inflammation, No Other, No Redness ENT: No Ear pain, No Ear discharge, No Nose pain, No Nose discharge, No Nose congestion, No Mouth pain, No Mouth swelling, No Throat pain, No Throat swelling, No Other Cardiovascular: No Chest Pain, No Palpitations; Orthopnea; No Paroxysmal Noc. Dyspnea, No Edema, No Lt Headedness, No Other Respiratory: No Cough, No Dry; Shortness of breath, SOB with excertion; No Wheezing, No Hemoptysis, No Pleuritic Pain, No Sputum, No Other Gastrointestinal: No Nausea, No Vomiting, No Abdominal Pain, No Diarrhea, No Constipation, No Melena, No Hematochezia; Other (Abdominal fullness sensation ) Genitourinary: No Dysuria, No Frequency, No Incontinence, No Hematuria, No Retention, No Other Musculoskeletal: No other, No neck pain, No shoulder pain, No arm pain, No back pain, No hand pain, No leg pain, No foot pain Skin: No Rash, No Lesions, No Jaundice, No Bruising, No Other Objective Vitals Vital Signs Date Time Temp Pulse Resp B/P (MAP) Pulse Ox O2 Delivery O2 Flow Rate FiO2 01/04/25 09:59 134/90 01/04/25 09:55 81 01/04/25 05:00 97.6 18 95 97.6 01/04/25 00:33 Nasal Cannula* 2 28 Intake/Output Intake and Output 01/04/25 07:00 Intake Total 350 ml Balance 350 ml Intake Oral 350 ml # Voids 3 Medications Current Medications Medications Dose Ordered Sig/Shakeel Route Start Time Stop Time Status Last Admin Dose Admin Enoxaparin Sodium 40 mg DAILY SC 01/03/25 10:00 01/04/25 09:58 40 MG Diagnostic Test (Pha) 1 strip Q6HR 01/03/25 06:00 01/04/25 12:04 1 STRIP Insulin Human Regular Q6HR SC 01/03/25 06:00 01/04/25 12:35 2 UNITS Dextrose 50 ml UD PRN IV 01/03/25 03:15 Aspirin 81 mg DAILY PO 01/04/25 10:00 01/04/25 09:57 81 MG Clopidogrel Bisulfate 75 mg DAILY PO 01/04/25 10:00 01/04/25 09:57 75 MG Atorvastatin Calcium 80 mg HS PO 01/03/25 22:00 Cefepime HCl 50 ml @ 12.5 mls/hr Q12HR IV 01/03/25 22:00 01/04/25 09:59 12.5 MLS/HR Doxycycline Hyclate 100 ml @ 50 mls/hr Q12H IV 01/03/25 13:45 01/04/25 00:59 50 MLS/HR Spironolactone 25 mg DAILY PO 01/04/25 10:00 01/04/25 09:56 25 MG Empaglifozin 10 mg DAILY PO 01/04/25 10:00 01/04/25 09:56 10 MG Carvedilol 3.125 mg Q12HR PO 01/03/25 22:00 01/04/25 09:55 3.125 MG Furosemide 80 mg DAILY IV 01/03/25 14:00 01/04/25 09:59 80 MG Docusate Sodium 100 mg DAILYPRN PRN PO 01/03/25 14:00 Laboratory Results Laboratory Tests 01/04/25 05:05 Chemistry Test 01/04/25 05:05 Albumin 3.4 g/dL (3.2-4.8) Calcium Level 8.7 mg/dL (8.7-10.4) Total Protein 5.5 g/dL (5.7-8.2) L LFT Test 01/04/25 05:05 Alanine Aminotransferase (ALT) 19 U/L (7-40) Alkaline Phosphatase 129 U/L (46-116) H Aspartate Amino Transferase (AST) 13 U/L (13-40) Total Bilirubin 0.5 mg/dL (0.2-1.0) Urinalysis Test 01/04/25 12:30 Urine Color Colorless (Yellow) Urine Clarity Clear (Clear) Urine pH 6.5 (5.0-9.0) Urine Specific [place] 1.006 (1.001-1.035) Urine Protein 1+ (Negative) H Urine Ketones Negative (Negative) Urine Blood Negative /uL (Negative) Urine Nitrite Negative (Negative) Urine Bilirubin Negative (Negative) Urine Urobilinogen Normal mg/dL (Negative) Urine Leukocyte Esterase Negative /uL (Negative) Urine RBC 2 /hpf (0 - 3) Urine Microscopic WBC 1 /HPF (0-3) Urine Squamous Epithelial Cells None seen /hpf (<5) Urine Bacteria None seen /hpf (None Seen) Urine Glucose 1+ mg/dL (Normal) H Labs and/or images reviewed: Labs reviewed by me, Image(s) reviewed by me Assessment/Plan Assessment/Plan Acute on chronic decompensated unspecified heart failure, NYHA class IV. Severe coronary artery disease status post double-vessel CABG. Cardiology consult by Dr. Vera Bush appreciated Presence of ICD ([facility]). History myocardial infarction. Hypertension. Dyslipidemia. Type 2 diabetes mellitus. Acute kidney injury. Time spent 70 minutes Advanced care planning time 20 minutes Patient is full code Plan discussed with: Patient Date of Service: Jan 04, 2025 Billing Provider: JOSHUA CHACON MD Common Visit Codes: [id number] CARE 30-74 MIN JOSHUA CHACON MD Jan 04, 2025 14:26
--- NOTE | 2025-01-04 23:55 | DVHPN2 ---
Progress Note - Dictate Date Seen: Jan 04, 2025 Medical Necessity Reason Pt with a Central, PICC or Fol: No Subjective Patient was seen and evaluated in follow up. Patient is complaining of BLE pain. HGB 9.5, HCT 28.1, BUN 26, [employer]ST 1.71. Chest x-ray shows multifocal airspace opacities, small right pleural effusion. Echocardiogram showed an EF of 25%. Telemetry reviewed. vital signs Vital Sign Date Time Temp Pulse Resp B/P (MAP) Pulse Ox O2 Delivery O2 Flow Rate FiO2 01/04/25 17:23 97.8 77 18 139/92 (108) 95 97.8 01/04/25 08:00 Room Air* 0 21 Total Intake and Output 01/03/25 01/03/25 01/04/25 15:00 23:00 07:00 Intake Total 350 ml Balance 350 ml medications Current Medications Medications Dose Ordered Sig/Shakeel Route Start Time Stop Time Status Last Admin Dose Admin Enoxaparin Sodium 40 mg DAILY SC 01/03/25 10:00 01/04/25 09:58 40 MG Diagnostic Test (Pha) 1 strip Q6HR 01/03/25 06:00 01/04/25 17:04 1 STRIP Insulin Human Regular Q6HR SC 01/03/25 06:00 01/04/25 12:35 2 UNITS Dextrose 50 ml UD PRN IV 01/03/25 03:15 Aspirin 81 mg DAILY PO 01/04/25 10:00 01/04/25 09:57 81 MG Clopidogrel Bisulfate 75 mg DAILY PO 01/04/25 10:00 01/04/25 09:57 75 MG Atorvastatin Calcium 80 mg HS PO 01/03/25 22:00 Cefepime HCl 50 ml @ 12.5 mls/hr Q12HR IV 01/03/25 22:00 01/04/25 09:59 12.5 MLS/HR Doxycycline Hyclate 100 ml @ 50 mls/hr Q12H IV 01/03/25 13:45 01/04/25 14:22 50 MLS/HR Spironolactone 25 mg DAILY PO 01/04/25 10:00 01/04/25 09:56 25 MG Empaglifozin 10 mg DAILY PO 01/04/25 10:00 01/04/25 09:56 10 MG Carvedilol 3.125 mg Q12HR PO 01/03/25 22:00 01/04/25 09:55 3.125 MG Furosemide 80 mg DAILY IV 01/03/25 14:00 01/04/25 09:59 80 MG Docusate Sodium 100 mg DAILYPRN PRN PO 01/03/25 14:00 objective GENERAL: Alert and oriented x 3. No acute distress. EYES: PERRL, EOMI. Anicteric. HENT: Moist mucous membranes. LUNGS: Clear to auscultation bilaterally. CARDIOVASCULAR: Regular rate and rhythm. ABDOMEN: Soft, nontender and nondistended. EXTREMITIES: 4+ pitting edema. NEUROLOGIC: No focal neurological deficits. SKIN: Warm, dry. Vertical scar to chest, without signs of infection. laboratory and microbiology Laboratory Tests 01/04/25 05:05 Test 01/04/25 05:05 Range/Units Serum Glucose 105 74-106 mg/dL Problem List Acute on chronic decompensated unspecified heart failure, NYHA class IV. Severe coronary artery disease status post double-vessel CABG. Presence of ICD ([facility] [place]). History myocardial infarction. Hypertension. Dyslipidemia. Type 2 diabetes mellitus. Acute kidney injury. Assessment/Plan Continued all current supportive medical care. Aspirin, Lipitor, Plavix. Coreg. IV antibiotics as ordered. DVT prophylactics. Diuretics with Lasix. Additional plan as per the hospital course. Plan discussed with: Patient KACY DE DIOS MD Jan 04, 2025 18:05
[2025-01-05] VITALS (9 sets, daily range): BP systolic 146–161; BP diastolic 82–92; PULSE 73–87; RESP 16–20; TEMP 97.8–99; O2SAT 91–98
--- NOTE | 2025-01-05 11:45 | DVHPN2 ---
Reviewed: Care Plan, H&P, Labs, Medications, Previous Orders, Radiology Changes from previous H/P or p: No Changes Eyes: No Pain, No Vision change, No Conjunctivae inflammation, No Eyelid inflammation, No Other, No Redness ENT: No Ear pain, No Ear discharge, No Nose pain, No Nose discharge, No Nose congestion, No Mouth pain, No Mouth swelling, No Throat pain, No Throat swelling, No Other Cardiovascular: No Chest Pain, No Palpitations; Orthopnea; No Paroxysmal Noc. Dyspnea, No Edema, No Lt Headedness, No Other Respiratory: No Cough, No Dry; Shortness of breath, SOB with excertion; No Wheezing, No Hemoptysis, No Pleuritic Pain, No Sputum, No Other Gastrointestinal: No Nausea, No Vomiting, No Abdominal Pain, No Diarrhea, No Constipation, No Melena, No Hematochezia; Other (Abdominal fullness sensation ) Genitourinary: No Dysuria, No Frequency, No Incontinence, No Hematuria, No Retention, No Other Musculoskeletal: No other, No neck pain, No shoulder pain, No arm pain, No back pain, No hand pain, No leg pain, No foot pain Skin: No Rash, No Lesions, No Jaundice, No Bruising, No Other Objective Vitals Vital Signs Date Time Temp Pulse Resp B/P (MAP) Pulse Ox O2 Delivery O2 Flow Rate FiO2 01/05/25 09:46 151/87 01/05/25 09:45 80 01/05/25 09:00 99.0 18 91 99.0 01/05/25 08:00 Nasal Cannula* 1 24 Intake/Output Intake and Output 01/05/25 07:00 Intake Total 1240 ml Output Total 1430 ml Balance -190 ml Intake Oral 940 ml IV Total 300 ml Output Urine Total 1430 ml # Voids 6 # Bowel Movements 1 Medications Current Medications Medications Dose Ordered Sig/Shakeel Route Start Time Stop Time Status Last Admin Dose Admin Enoxaparin Sodium 40 mg DAILY SC 01/03/25 10:00 01/05/25 09:47 40 MG Diagnostic Test (Pha) 1 strip Q6HR 01/03/25 06:00 01/05/25 06:00 1 STRIP Insulin Human Regular Q6HR SC 01/03/25 06:00 01/04/25 12:35 2 UNITS Dextrose 50 ml UD PRN IV 01/03/25 03:15 Aspirin 81 mg DAILY PO 01/04/25 10:00 01/05/25 09:46 81 MG Clopidogrel Bisulfate 75 mg DAILY PO 01/04/25 10:00 01/05/25 09:44 75 MG Atorvastatin Calcium 80 mg HS PO 01/03/25 22:00 01/04/25 22:20 80 MG Cefepime HCl 50 ml @ 12.5 mls/hr Q12HR IV 01/03/25 22:00 01/05/25 09:47 12.5 MLS/HR Doxycycline Hyclate 100 ml @ 50 mls/hr Q12H IV 01/03/25 13:45 01/05/25 02:23 50 MLS/HR Spironolactone 25 mg DAILY PO 01/04/25 10:00 01/05/25 09:46 25 MG Empaglifozin 10 mg DAILY PO 01/04/25 10:00 01/05/25 09:46 10 MG Carvedilol 3.125 mg Q12HR PO 01/03/25 22:00 01/05/25 09:45 3.125 MG Furosemide 80 mg DAILY IV 01/03/25 14:00 01/05/25 09:46 80 MG Docusate Sodium 100 mg DAILYPRN PRN PO 01/03/25 14:00 Laboratory Results Laboratory Tests 01/04/25 05:05 Urinalysis Test 01/04/25 12:30 Urine Color Colorless (Yellow) Urine Clarity Clear (Clear) Urine pH 6.5 (5.0-9.0) Urine Specific [place] 1.006 (1.001-1.035) Urine Protein 1+ (Negative) H Urine Ketones Negative (Negative) Urine Blood Negative /uL (Negative) Urine Nitrite Negative (Negative) Urine Bilirubin Negative (Negative) Urine Urobilinogen Normal mg/dL (Negative) Urine Leukocyte Esterase Negative /uL (Negative) Urine RBC 2 /hpf (0 - 3) Urine Microscopic WBC 1 /HPF (0-3) Urine Squamous Epithelial Cells None seen /hpf (<5) Urine Bacteria None seen /hpf (None Seen) Urine Glucose 1+ mg/dL (Normal) H Microbiology Microbiology Date/Time Source Procedure Growth Status 01/04/25 10:17 Leg Gram Stain - Final Resulted 01/04/25 10:17 Leg Wound Culture - Preliminary Resulted Labs and/or images reviewed: Labs reviewed by me, Image(s) reviewed by me Assessment/Plan Assessment/Plan Acute hypoxic respiratory failure oxygen by nasal cannula patient does not use home oxygen Acute on chronic decompensated unspecified heart failure, NYHA class IV. Severe coronary artery disease status post double-vessel CABG. Cardiology consult by Dr. Vera Bush appreciated Multifocal pneumonia: Continue cefepime and doxycycline, check Margie test and rapid flu test Sepsis secondary to left leg wound: Continue cefepime and doxycycline wound cultures negative Presence of ICD ([facility] [place]). History myocardial infarction. Hypertension. Dyslipidemia. Type 2 diabetes mellitus. Acute kidney injury. Time spent 50 minutes Patient is full code Plan discussed with: Patient My Orders Orders - JOSHUA CHACON MD Procedure Category Date Status Time Cleanse Wound With MIKEY 01/04/25 In Process Wound Clean 11:10 * Dietary Consult CONS 01/04/25 Transmitted 16:00 Date of Service: Jan 05, 2025 Billing Provider: JOSHUA CHACON MD Common Visit Codes: [id number] CARE 30-74 MIN JOSHUA CHACON MD Jan 05, 2025 11:45
[2025-01-05 13:06] LABS: COVID19 ANTIGEN SOFIA FIA NEGATIVE (NEGATIVE)
--- NOTE | 2025-01-05 22:31 | DVHPN2 ---
Progress Note - Dictate Date Seen: Jan 05, 2025 Medical Necessity Reason Pt with a Central, PICC or Fol: No Subjective Patient was seen and evaluated in follow up. No overnight events. Patient is on 1 LPM NC. Patient reports improvement in SOB. BS are WNL. Covid and influenza are negative. Telemetry reviewed. vital signs Vital Sign Date Time Temp Pulse Resp B/P (MAP) Pulse Ox O2 Delivery O2 Flow Rate FiO2 01/05/25 21:23 76 154/86 01/05/25 21:00 97.8 18 98 97.8 01/05/25 20:00 Nasal Cannula* 1 24 Total Intake and Output 01/04/25 01/04/25 01/05/25 15:00 23:00 07:00 Intake Total 50 ml 720 ml 470 ml Output Total 630 ml 800 ml Balance -580 ml 720 ml -330 ml medications Current Medications Medications Dose Ordered Sig/Shakeel Route Start Time Stop Time Status Last Admin Dose Admin Enoxaparin Sodium 40 mg DAILY SC 01/03/25 10:00 01/05/25 09:47 40 MG Diagnostic Test (Pha) 1 strip Q6HR 01/03/25 06:00 01/05/25 17:44 1 STRIP Insulin Human Regular Q6HR SC 01/03/25 06:00 01/05/25 12:01 3 UNITS Dextrose 50 ml UD PRN IV 01/03/25 03:15 Aspirin 81 mg DAILY PO 01/04/25 10:00 01/05/25 09:46 81 MG Clopidogrel Bisulfate 75 mg DAILY PO 01/04/25 10:00 01/05/25 09:44 75 MG Atorvastatin Calcium 80 mg HS PO 01/03/25 22:00 01/05/25 21:21 80 MG Cefepime HCl 50 ml @ 12.5 mls/hr Q12HR IV 01/03/25 22:00 01/05/25 21:24 12.5 MLS/HR Doxycycline Hyclate 100 ml @ 50 mls/hr Q12H IV 01/03/25 13:45 01/05/25 14:30 50 MLS/HR Spironolactone 25 mg DAILY PO 01/04/25 10:00 01/05/25 09:46 25 MG Empaglifozin 10 mg DAILY PO 01/04/25 10:00 01/05/25 09:46 10 MG Carvedilol 3.125 mg Q12HR PO 01/03/25 22:00 01/05/25 21:23 3.125 MG Furosemide 80 mg DAILY IV 01/03/25 14:00 01/05/25 09:46 80 MG Docusate Sodium 100 mg DAILYPRN PRN PO 01/03/25 14:00 objective GENERAL: Alert and oriented x 3. No acute distress. EYES: PERRL, EOMI. Anicteric. HENT: Moist mucous membranes. LUNGS: Clear to auscultation bilaterally. CARDIOVASCULAR: Regular rate and rhythm. ABDOMEN: Soft, nontender and nondistended. EXTREMITIES: 4+ pitting edema. NEUROLOGIC: No focal neurological deficits. SKIN: Warm, dry. Vertical scar to chest, without signs of infection. laboratory and microbiology Laboratory Tests 01/04/25 05:05 Test 01/04/25 05:05 Range/Units Serum Glucose 105 74-106 mg/dL Problem List Acute on chronic decompensated unspecified heart failure, NYHA class IV. Severe coronary artery disease status post double-vessel CABG. Presence of ICD ([facility]). History myocardial infarction. Hypertension. Dyslipidemia. Type 2 diabetes mellitus. Acute kidney injury. Assessment/Plan Continued all current supportive medical care. Aspirin, Lipitor, Plavix. Coreg. IV antibiotics as ordered. DVT prophylactics. Diuretics with Lasix. Additional plan as per the hospital course. Dietary Evaluation Review Comments[facility] Expected Outcomes/Goals: controlled DM, healed wound, gradual wt loss Plan discussed with: Patient KACY DE DIOS MD Jan 05, 2025 22:31
[2025-01-06] VITALS (8 sets, daily range): BP systolic 143–159; BP diastolic 84–89; PULSE 79–82; RESP 16–20; TEMP 97.5–98.6; O2SAT 94–97
--- NOTE | 2025-01-06 10:31 | DVHPN2 ---
Reviewed: Care Plan, H&P, Labs, Medications, Previous Orders, Radiology Changes from previous H/P or p: No Changes Eyes: No Pain, No Vision change, No Conjunctivae inflammation, No Eyelid inflammation, No Other, No Redness ENT: No Ear pain, No Ear discharge, No Nose pain, No Nose discharge, No Nose congestion, No Mouth pain, No Mouth swelling, No Throat pain, No Throat swelling, No Other Cardiovascular: No Chest Pain, No Palpitations; Orthopnea; No Paroxysmal Noc. Dyspnea, No Edema, No Lt Headedness, No Other Respiratory: No Cough, No Dry; Shortness of breath, SOB with excertion; No Wheezing, No Hemoptysis, No Pleuritic Pain, No Sputum, No Other Gastrointestinal: No Nausea, No Vomiting, No Abdominal Pain, No Diarrhea, No Constipation, No Melena, No Hematochezia; Other (Abdominal fullness sensation ) Genitourinary: No Dysuria, No Frequency, No Incontinence, No Hematuria, No Retention, No Other Musculoskeletal: No other, No neck pain, No shoulder pain, No arm pain, No back pain, No hand pain, No leg pain, No foot pain Skin: No Rash, No Lesions, No Jaundice, No Bruising, No Other Objective Vitals Vital Signs Date Time Temp Pulse Resp B/P (MAP) Pulse Ox O2 Delivery O2 Flow Rate FiO2 01/06/25 09:20 98.5 79 16 152/88 (109) 95 98.5 01/05/25 20:00 Nasal Cannula* 1 24 Intake/Output Intake and Output 01/06/25 07:00 Intake Total 2050 ml Balance 2050 ml Intake Oral 1850 ml IV Total 200 ml # Voids 6 # Bowel Movements 2 Medications Current Medications Medications Dose Ordered Sig/Shakeel Route Start Time Stop Time Status Last Admin Dose Admin Enoxaparin Sodium 40 mg DAILY SC 01/03/25 10:00 01/05/25 09:47 40 MG Diagnostic Test (Pha) 1 strip Q6HR 01/03/25 06:00 01/06/25 06:00 1 STRIP Insulin Human Regular Q6HR SC 01/03/25 06:00 01/06/25 00:29 3 UNITS Dextrose 50 ml UD PRN IV 01/03/25 03:15 Aspirin 81 mg DAILY PO 01/04/25 10:00 01/05/25 09:46 81 MG Clopidogrel Bisulfate 75 mg DAILY PO 01/04/25 10:00 01/05/25 09:44 75 MG Atorvastatin Calcium 80 mg HS PO 01/03/25 22:00 01/05/25 21:21 80 MG Cefepime HCl 50 ml @ 12.5 mls/hr Q12HR IV 01/03/25 22:00 01/05/25 21:24 12.5 MLS/HR Doxycycline Hyclate 100 ml @ 50 mls/hr Q12H IV 01/03/25 13:45 01/06/25 01:50 50 MLS/HR Spironolactone 25 mg DAILY PO 01/04/25 10:00 01/05/25 09:46 25 MG Empaglifozin 10 mg DAILY PO 01/04/25 10:00 01/05/25 09:46 10 MG Carvedilol 3.125 mg Q12HR PO 01/03/25 22:00 01/05/25 21:23 3.125 MG Furosemide 80 mg DAILY IV 01/03/25 14:00 01/05/25 09:46 80 MG Docusate Sodium 100 mg DAILYPRN PRN PO 01/03/25 14:00 Laboratory Results Laboratory Tests 01/04/25 05:05 Urinalysis Test 01/04/25 12:30 Urine Color Colorless (Yellow) Urine Clarity Clear (Clear) Urine pH 6.5 (5.0-9.0) Urine Specific [place] 1.006 (1.001-1.035) Urine Protein 1+ (Negative) H Urine Ketones Negative (Negative) Urine Blood Negative /uL (Negative) Urine Nitrite Negative (Negative) Urine Bilirubin Negative (Negative) Urine Urobilinogen Normal mg/dL (Negative) Urine Leukocyte Esterase Negative /uL (Negative) Urine RBC 2 /hpf (0 - 3) Urine Microscopic WBC 1 /HPF (0-3) Urine Squamous Epithelial Cells None seen /hpf (<5) Urine Bacteria None seen /hpf (None Seen) Urine Glucose 1+ mg/dL (Normal) H Microbiology Microbiology Date/Time Source Procedure Growth Status 01/04/25 10:17 Leg Gram Stain - Final Resulted 01/04/25 10:17 Leg Wound Culture - Preliminary Resulted Labs and/or images reviewed: Labs reviewed by me, Image(s) reviewed by me Assessment/Plan Assessment/Plan Acute hypoxic respiratory failure oxygen by nasal cannula patient does not use home oxygen Acute on chronic decompensated unspecified heart failure, NYHA class IV. Severe coronary artery disease status post double-vessel CABG. Cardiology consult by Dr. Vera Bush appreciated Multifocal pneumonia: Continue cefepime and doxycycline, COVID test negative, flu test neg Sepsis secondary to left leg wound: Continue cefepime and doxycycline wound cultures pending Presence of ICD ([facility] [place]). History myocardial infarction. Hypertension. Dyslipidemia. Type 2 diabetes mellitus. Acute kidney injury. Time spent 50 minutes Patient is full code Plan discussed with: Patient Date of Service: Jan 06, 2025 Billing Provider: JOSHUA CHACON MD Common Visit Codes: [id number] INP/OBS CARE(HIGH) JOSHUA CHACON MD Jan 06, 2025 10:31
--- NOTE | 2025-01-06 22:48 | DVHPN2 ---
Progress Note - Dictate Date Seen: Jan 06, 2025 Medical Necessity Reason Pt with a Central, PICC or Fol: No Subjective Patient was seen and evaluated in follow up. Patients SOB is improving. Patient is now on room air. BS are in the 200s. Patient denies any cardiac symptoms Telemetry reviewed. vital signs Vital Sign Date Time Temp Pulse Resp B/P (MAP) Pulse Ox O2 Delivery O2 Flow Rate FiO2 01/06/25 22:38 82 143/84 01/06/25 21:00 97.7 20 96 97.7 01/06/25 08:00 Room Air* 0 21 Total Intake and Output 01/05/25 01/05/25 01/06/25 15:00 23:00 07:00 Intake Total 50 ml 850 ml 1150 ml Balance 50 ml 850 ml 1150 ml medications Current Medications Medications Dose Ordered Sig/Shakeel Route Start Time Stop Time Status Last Admin Dose Admin Enoxaparin Sodium 40 mg DAILY SC 01/03/25 10:00 01/06/25 10:57 40 MG Diagnostic Test (Pha) 1 strip Q6HR 01/03/25 06:00 01/06/25 17:53 1 STRIP Insulin Human Regular Q6HR SC 01/03/25 06:00 01/06/25 17:54 6 UNITS Dextrose 50 ml UD PRN IV 01/03/25 03:15 Aspirin 81 mg DAILY PO 01/04/25 10:00 01/06/25 10:58 81 MG Clopidogrel Bisulfate 75 mg DAILY PO 01/04/25 10:00 01/06/25 11:00 75 MG Atorvastatin Calcium 80 mg HS PO 01/03/25 22:00 01/06/25 22:37 80 MG Cefepime HCl 50 ml @ 12.5 mls/hr Q12HR IV 01/03/25 22:00 01/06/25 22:39 12.5 MLS/HR Doxycycline Hyclate 100 ml @ 50 mls/hr Q12H IV 01/03/25 13:45 01/06/25 14:43 50 MLS/HR Spironolactone 25 mg DAILY PO 01/04/25 10:00 01/06/25 10:58 25 MG Empaglifozin 10 mg DAILY PO 01/04/25 10:00 01/06/25 11:01 10 MG Carvedilol 3.125 mg Q12HR PO 01/03/25 22:00 01/06/25 22:38 3.125 MG Furosemide 80 mg DAILY IV 01/03/25 14:00 01/06/25 10:58 80 MG Docusate Sodium 100 mg DAILYPRN PRN PO 01/03/25 14:00 objective GENERAL: Alert and oriented x 3. No acute distress. EYES: PERRL, EOMI. Anicteric. HENT: Moist mucous membranes. LUNGS: Clear to auscultation bilaterally. CARDIOVASCULAR: Regular rate and rhythm. ABDOMEN: Soft, nontender and nondistended. EXTREMITIES: 4+ pitting edema. NEUROLOGIC: No focal neurological deficits. SKIN: Warm, dry. Vertical scar to chest, without signs of infection. laboratory and microbiology Laboratory Tests 01/04/25 05:05 Test 01/04/25 05:05 Range/Units Serum Glucose 105 74-106 mg/dL Problem List Acute on chronic decompensated unspecified heart failure, NYHA class IV. Severe coronary artery disease status post double-vessel CABG. Presence of ICD ([facility] [place]). History myocardial infarction. Hypertension. Dyslipidemia. Type 2 diabetes mellitus. Acute kidney injury. Assessment/Plan Continued all current supportive medical care. Aspirin, Lipitor, Plavix. Coreg. IV antibiotics as ordered. DVT prophylactics. Diuretics with Lasix. Additional plan as per the hospital course. Dietary Evaluation Review Comments: [facility]-60 Cardiac Diet Expected Outcomes/Goals: controlled DM, healed wound, gradual wt loss Plan discussed with: Patient KACY DE DIOS MD Jan 06, 2025 22:48
[2025-01-07 01:00] VITALS: BP 145/82; PULSE 84; RESP 26; TEMP 98; O2SAT 94
[2025-01-07 08:00] VITALS: PULSE 85; RESP 18
[2025-01-07 09:00] VITALS: BP 135/82; PULSE 84; RESP 17; TEMP 97.3; O2SAT 94
[2025-01-07] MEDS ORDERED: CARV-214 PO (10:04)
[2025-01-07] MEDS ORDERED: ASPI1TAB19 PO (10:04)
[2025-01-07] MEDS ORDERED: ATOR-507 PO (10:04)
[2025-01-07] MEDS ORDERED: CLIN1CAP70 PO (10:04)
[2025-01-07] MEDS ORDERED: CLOP75TA28 PO (10:04)
--- NOTE | 2025-01-07 10:05 | DVHPN2 ---
Reviewed: Care Plan, H&P, Labs, Medications, Previous Orders, Radiology Changes from previous H/P or p: No Changes Eyes: No Pain, No Vision change, No Conjunctivae inflammation, No Eyelid inflammation, No Other, No Redness ENT: No Ear pain, No Ear discharge, No Nose pain, No Nose discharge, No Nose congestion, No Mouth pain, No Mouth swelling, No Throat pain, No Throat swelling, No Other Cardiovascular: No Chest Pain, No Palpitations; Orthopnea; No Paroxysmal Noc. Dyspnea, No Edema, No Lt Headedness, No Other Respiratory: No Cough, No Dry; Shortness of breath, SOB with excertion; No Wheezing, No Hemoptysis, No Pleuritic Pain, No Sputum, No Other Gastrointestinal: No Nausea, No Vomiting, No Abdominal Pain, No Diarrhea, No Constipation, No Melena, No Hematochezia; Other (Abdominal fullness sensation ) Genitourinary: No Dysuria, No Frequency, No Incontinence, No Hematuria, No Retention, No Other Musculoskeletal: No other, No neck pain, No shoulder pain, No arm pain, No back pain, No hand pain, No leg pain, No foot pain Skin: No Rash, No Lesions, No Jaundice, No Bruising, No Other Objective Vitals Vital Signs Date Time Temp Pulse Resp B/P (MAP) Pulse Ox O2 Delivery O2 Flow Rate FiO2 01/07/25 01:00 98.0 84 26 145/82 (103) 94 98.0 01/06/25 20:00 Room Air* 0 21 Intake/Output Intake and Output 01/07/25 06:59 Intake Total 850 ml Output Total 600 ml Balance 250 ml Intake Oral 600 ml IV Total 250 ml Output Urine Total 600 ml # Bowel Movements 1 Medications Current Medications Medications Dose Ordered Sig/Shakeel Route Start Time Stop Time Status Last Admin Dose Admin Enoxaparin Sodium 40 mg DAILY SC 01/03/25 10:00 01/06/25 10:57 40 MG Diagnostic Test (Pha) 1 strip Q6HR 01/03/25 06:00 01/07/25 06:00 1 STRIP Insulin Human Regular Q6HR SC 01/03/25 06:00 01/07/25 06:38 2 UNITS Dextrose 50 ml UD PRN IV 01/03/25 03:15 Aspirin 81 mg DAILY PO 01/04/25 10:00 01/06/25 10:58 81 MG Clopidogrel Bisulfate 75 mg DAILY PO 01/04/25 10:00 01/06/25 11:00 75 MG Atorvastatin Calcium 80 mg HS PO 01/03/25 22:00 01/06/25 22:37 80 MG Cefepime HCl 50 ml @ 12.5 mls/hr Q12HR IV 01/03/25 22:00 01/06/25 22:39 12.5 MLS/HR Doxycycline Hyclate 100 ml @ 50 mls/hr Q12H IV 01/03/25 13:45 01/07/25 01:48 50 MLS/HR Spironolactone 25 mg DAILY PO 01/04/25 10:00 01/06/25 10:58 25 MG Empaglifozin 10 mg DAILY PO 01/04/25 10:00 01/06/25 11:01 10 MG Carvedilol 3.125 mg Q12HR PO 01/03/25 22:00 01/06/25 22:38 3.125 MG Furosemide 80 mg DAILY IV 01/03/25 14:00 01/06/25 10:58 80 MG Docusate Sodium 100 mg DAILYPRN PRN PO 01/03/25 14:00 Laboratory Results Laboratory Tests 01/04/25 05:05 Urinalysis Test 01/04/25 12:30 Urine Color Colorless (Yellow) Urine Clarity Clear (Clear) Urine pH 6.5 (5.0-9.0) Urine Specific [place] 1.006 (1.001-1.035) Urine Protein 1+ (Negative) H Urine Ketones Negative (Negative) Urine Blood Negative /uL (Negative) Urine Nitrite Negative (Negative) Urine Bilirubin Negative (Negative) Urine Urobilinogen Normal mg/dL (Negative) Urine Leukocyte Esterase Negative /uL (Negative) Urine RBC 2 /hpf (0 - 3) Urine Microscopic WBC 1 /HPF (0-3) Urine Squamous Epithelial Cells None seen /hpf (<5) Urine Bacteria None seen /hpf (None Seen) Urine Glucose 1+ mg/dL (Normal) H Microbiology Microbiology Date/Time Source Procedure Growth Status 01/04/25 10:17 Leg Gram Stain - Final Resulted 01/04/25 10:17 Wound Culture - Preliminary Methicillin Resistant S.aureus Resulted Labs and/or images reviewed: Labs reviewed by me, Image(s) reviewed by me Assessment/Plan Assessment/Plan Acute hypoxic respiratory failure oxygen by nasal cannula patient does not use home oxygen Acute on chronic decompensated unspecified heart failure, NYHA class IV. Severe coronary artery disease status post double-vessel CABG. Cardiology consult by Dr. Vera Bush appreciated Multifocal pneumonia: Continue cefepime and doxycycline, COVID test negative, flu test neg Sepsis secondary to left leg wound: Wound Cultures growing MRSA sensitive to clindamycin Presence of ICD ([facility]). History myocardial infarction. Hypertension. Dyslipidemia. Type 2 diabetes mellitus. Acute kidney injury. Time spent 50 minutes Patient is full code Plan discussed with: Patient Date of Service: Jan 07, 2025 Billing Provider: JOSHUA CHACON MD Common Visit Codes: [id number] INP/OBS CARE(HIGH) JOSHUA CHACON MD Jan 07, 2025 10:05
--- NOTE | 2025-01-07 10:11 | DVHDS2 ---
Discharge Summary Date of Admission Jan 03, 2025 at 03:07 Date of Discharge: Jan 07, 2025 Admitting Diagnosis Shortness of breath Wounds: Left leg wound Labs/Diagnostic Data: Laboratory Results Test 01/07/25 01:17 01/05/25 12:05 01/04/25 12:30 01/04/25 05:05 POC Glucose 147 mg/dl (70-106) Influenza Type A Antigen Negative (Negative) Influenza Type B Antigen Negative (Negative) SARS-CoV-2 Antigen (Rapid) Negative (NEGATIVE) Urine Color Colorless (Yellow) Urine Clarity Clear (Clear) Urine pH 6.5 (5.0-9.0) Urine Specific [employer] 1.006 (1.001-1.035) Urine Protein 1+ (Negative) Urine Ketones Negative (Negative) Urine Blood Negative /uL (Negative) Urine Nitrite Negative (Negative) Urine Bilirubin Negative (Negative) Urine Urobilinogen Normal mg/dL (Negative) Urine Leukocyte Esterase Negative /uL (Negative) Urine RBC 2 /hpf (0 - 3) Urine Microscopic WBC 1 /HPF (0-3) Urine Squamous Epithelial Cells None seen /hpf (<5) Urine Bacteria None seen /hpf (None Seen) Urine Glucose 1+ mg/dL (Normal) Urine Opiates Screen Neg (NEGATIVE) Urine Fentanyl Screen Neg (NEGATIVE) Urine Barbiturates Screen Neg (NEGATIVE) Urine Phencyclidine Screen Neg (NEGATIVE) Urine Amphetamines Screen Neg (NEGATIVE) Urine Benzodiazepines Screen Neg (NEGATIVE) Urine Cocaine Screen Neg (NEGATIVE) Urine Cannabinoids Screen Neg (NEGATIVE) White Blood Count 6.4 10^3/uL (4.4-10.8) Red Blood Count 3.22 10^6/uL (4.5-5.90) Hemoglobin 9.5 g/dL (13.5-17.5) Hematocrit 28.1 % (41.0-53.0) Mean Corpuscular Volume 87.2 fL (80.0-100.0) Mean Corpuscular Hemoglobin 29.6 pg (28.0-32.0) Mean Corpuscular Hemoglobin Concent 34.0 g/dL (32.0-36.0) Red Cell Distribution Width 14.3 % (11.8-14.3) Platelet Count 222 10^3/uL (140-450) Mean Platelet Volume 7.3 fL (6.9-10.8) Neutrophils (%) (Auto) 65.5 % (37.0-80.0) Lymphocytes (%) (Auto) 20.0 % (10.0-50.0) Monocytes (%) (Auto) 9.1 % (0.0-12.0) Eosinophils (%) (Auto) 4.7 % (0.0-7.0) Basophils (%) (Auto) 0.7 % (0.0-2.0) Neutrophils # (Auto) 4.2 10 ^3/uL (1.6-8.6) Lymphocytes # (Auto) 1.3 10 ^3/uL (0.4-5.4) Monocytes # (Auto) 0.6 10 ^3/uL (0-1.3) Eosinophils # (Auto) 0.3 10 ^3/uL (0-0.8) Basophils # (Auto) 0 10 ^3/uL (0-0.2) Nucleated Red Blood Cells 0.0 % Sodium Level 139 mmol/L (136-145) Potassium Level 4.6 mmol/L (3.5-5.1) Chloride Level 106 mmol/L (98-107) Carbon Dioxide Level 27 mmol/L (20-31) Anion Gap 6 (5-15) Blood Urea Nitrogen 26 mg/dL (9-23) Creatinine 1.71 mg/dL (0.700-1.30) Glomerular Filtration Rate Calc 47 mL/min (>90) BUN/Creatinine Ratio 15.2 (10.0-20.0) Serum Glucose 105 mg/dL (74-106) Calcium Level 8.7 mg/dL (8.7-10.4) Total Bilirubin 0.5 mg/dL (0.2-1.0) Aspartate Amino Transferase (AST) 13 U/L (13-40) Alanine Aminotransferase (ALT) 19 U/L (7-40) Alkaline Phosphatase 129 U/L (46-116) Total Protein 5.5 g/dL (5.7-8.2) Albumin 3.4 g/dL (3.2-4.8) Test 01/03/25 17:57 01/03/25 07:04 01/02/25 21:22 Lactic Acid Level 1.0 mmol/L (0.4-2.0) Hemoglobin A1c 6.7 % A1C (<5.7) Magnesium Level 2.1 mg/dL (1.6-2.6) Triglycerides Level 157 mg/dL (< 150) Cholesterol Level 166 mg/dL (< 200) LDL Cholesterol 106 mg/dL (< 100) HDL Cholesterol 36 mg/dL (40-59) Thyroid Stimulating Hormone (TSH) 4.78 uIU/mL (0.55-4.78) Troponin I High Sensitivity 12 ng/L (</=54) B-Type Natriuretic Peptide 1919.73 pg/mL (0-100) Other Laboratory Tests 01/04/25 05:05 Brief Hx & Hospital Course: 54-year-old male with a history of GA hypertension hypercholesterolemia diabetes severe coronary artery disease status post CABG chronic congestive heart failure came in for shortness of breaths. Found to be in exacerbation of CHF treated per protocol seen by Cardiology Dr. Vera Bush COVID test negative flu test negative patient has a chronic nonhealing left leg wound wound cultures grew MRSA sensitive to clindamycin. The patient also has a AICD. Patient being discharged home on clindamycin for wound infection he will continue all his home medications for the congestive heart failure including Lasix aspirin Plavix and Coreg Patient On room air with a stable vital signs at the time of discharge. Consults/Reason for consult Cardiology Dr. Vera Bush Operations or Procedures None Condition at Discharge: Fair Final Diagnosis/Problems List Acute hypoxic respiratory failure oxygen by nasal cannula patient does not use home oxygen Acute on chronic decompensated unspecified heart failure, NYHA class IV. Severe coronary artery disease status post double-vessel CABG. Cardiology consult by Dr. Vera Bush appreciated Multifocal pneumonia: Continue cefepime and doxycycline, COVID test negative, flu test neg Sepsis secondary to left leg wound: Wound Cultures growing MRSA sensitive to clindamycin Presence of ICD ([facility] [place]). History myocardial infarction. Hypertension. Dyslipidemia. Type 2 diabetes mellitus. Acute kidney injury. Discharge Disposition: Home Discharge Instruct/Medications Diet: Cardiac 2g Na,low cholest Activity: No Restrictions, As Tolerated Follow Up/Referral: Follow up with the primary Dr in one week Medications: Aspirin Lipitor Plavix Coreg clindamycin transmitted to pharmacy Scheduled Aspirin (Aspirin), 81 MG PO DAILY Atorvastatin Calcium (Lipitor), 1 TAB PO QPM Carvedilol (Coreg), 3.125 MG PO BID Clindamycin Hcl (Clindamycin Hcl), 1 CAP PO TID Clopidogrel Bisulfate (Plavix), 1 TAB PO DAILY 39 (Time taken for discharge summary 39 minutes) Discharge Statement: "Patient was advised to return to the ER or call 911 if any headaches, dizziness, shortness of breath, chest pain, abdominal pain, bleeding, fevers, or worsening of medical condition. Patient was counseled about treatment plan, medications, possible side effects, patientverbalized understanding. All questions were answered to the best of my ability. This discharge took greater then 30 minutes in planning, reviewing documentation, counseling the patient, and discussing with other team members." ASSESSMENT ASSESSMENT Hospital Course Improved Assessment Acute hypoxic respiratory failure oxygen by nasal cannula patient does not use home oxygen Acute on chronic decompensated unspecified heart failure, NYHA class IV. Severe coronary artery disease status post double-vessel CABG. Cardiology consult by Dr. Vera Bush appreciated Multifocal pneumonia: Continue cefepime and doxycycline, COVID test negative, flu test neg Sepsis secondary to left leg wound: Wound Cultures growing MRSA sensitive to clindamycin Presence of ICD ([facility] [place]). History myocardial infarction. Hypertension. Dyslipidemia. Type 2 diabetes mellitus. Acute kidney injury. Date of Service: Jan 07, 2025 Billing Provider: JOSHUA CHACON MD Common Visit Codes: 00916-CQD/OBS DISCH DAY >30min JOSHUA CHACON MD Jan 07, 2025 10:11
[2025-01-07 11:32] VITALS: BP 135/82; PULSE 84
--- NOTE | 2025-01-07 21:20 | DVHPN2 ---
Progress Note - Dictate Date Seen: Jan 07, 2025 Medical Necessity Reason Pt with a Central, PICC or Fol: No Subjective Patient was seen and evaluated in follow up. Patient has no new complaints at this time. Patient denies any cardiac symptoms. Patient is cardiac stable for discharge. Telemetry reviewed. vital signs Vital Sign Date Time Temp Pulse Resp B/P (MAP) Pulse Ox O2 Delivery O2 Flow Rate FiO2 01/07/25 11:32 84 01/07/25 10:37 135/82 01/07/25 09:00 97.3 17 94 97.3 01/07/25 08:00 Room Air* 0 21 Total Intake and Output 01/06/25 01/06/25 01/07/25 15:00 23:00 07:00 Intake Total 50 ml 700 ml 100 ml Output Total 600 ml Balance 50 ml 100 ml 100 ml objective GENERAL: Alert and oriented x 3. No acute distress. EYES: PERRL, EOMI. Anicteric. HENT: Moist mucous membranes. LUNGS: Clear to auscultation bilaterally. CARDIOVASCULAR: Regular rate and rhythm. ABDOMEN: Soft, nontender and nondistended. EXTREMITIES: 4+ pitting edema. NEUROLOGIC: No focal neurological deficits. SKIN: Warm, dry. Vertical scar to chest, without signs of infection. laboratory and microbiology Laboratory Tests 01/04/25 05:05 Test 01/04/25 05:05 Range/Units Serum Glucose 105 74-106 mg/dL Problem List Acute on chronic decompensated unspecified heart failure, NYHA class IV. Severe coronary artery disease status post double-vessel CABG. Presence of ICD ([facility] [place]). History myocardial infarction. Hypertension. Dyslipidemia. Type 2 diabetes mellitus. Acute kidney injury. Assessment/Plan Continued all current supportive medical care. Aspirin, Lipitor, Plavix. Coreg. IV antibiotics as ordered. DVT prophylactics. Diuretics with Lasix. Additional plan as per the hospital course. Dietary Evaluation Review Comments: CCHO-60 Cardiac Diet Expected Outcomes/Goals: controlled DM, healed wound, gradual wt loss Plan discussed with: Patient KACY DE DIOS MD Jan 07, 2025 21:20
== END 2025-01-07 13:23 | disposition home or self-care (01) | DRG 720 ==
LOC: ER 20:04 → OVERFLOW 01-03 03:07 → TELE-WESTW 01-03 22:02 → TELE-EAST 01-06 20:02 → TELE-WESTW 01-07 00:11
PROVIDERS: ADMIT Family Medicine; ATTEND Family Medicine
DX: A41.02 Sepsis due to Methicillin resistant Staphylococcus aureus (principal); J96.01 Acute respiratory failure with hypoxia; N17.0 Acute kidney failure with tubular necrosis; I50.43 Acute on chronic combined systolic (congestive) and diastolic (congestive) heart failure; J15.69 Pneumonia due to other Gram-negative bacteria; I11.0 Hypertensive heart disease with heart failure; J15.9 Unspecified bacterial pneumonia; Z20.822 Contact with and (suspected) exposure to COVID-19; I25.10 Atherosclerotic heart disease of native coronary artery without angina pectoris; E11.9 Type 2 diabetes mellitus without complications; E78.00 Pure hypercholesterolemia, unspecified; Z95.0 Presence of cardiac pacemaker; Z95.1 Presence of aortocoronary bypass graft; I25.2 Old myocardial infarction
CPT/HCPCS: 36415; 71045; 71046; 73700; 80048; 80053; 80061; 80307; 81001; 82962; 83036; 83605; 83735; 83880; 84443; 84484; 85025; 87077; 87186; 87205; 87426; 87804; 93005; 93306; 93970; G0378; J1815

== ENCOUNTER 2025-01-31 18:13 | Inpatient (IN) | payer MEDICAID ==
[~2025-01-31] VITALS: Ht 162.6 cm; Wt 72.4 kg
[~2025-01-31 18:13] MED LIST: ASPI1TAB19 PO; ATOR-507 PO; CARV-214 PO; CLIN1CAP70 PO; CLOP75TA28 PO
--- NOTE | 2025-01-31 18:26 | ED.PDOC ---
SOB-HPI HPI Comments 54 year old male presents to the ED via EMS with a chief complaint of shortness of breath onset 1 week. Per EMS, patient has been experiencing shortness of breath for the past week, worsen today. Patient states he is also experiencing bilateral leg swelling, hearing loss from RT ear. He is on Plavix. PMHx CAD, CHF, DM, HTN, RI. Denies fever, chills, abdominal pain, nausea, vomiting, diarrhea, headache, chest pain, sore throat, congestion. No other symptoms or modifying factors present at this time. Time Seen by MD: 18:20 Reviewed notes: Medications, Allergies Information Source: Patient, Emergency Med Personnel Mode of Arrival: EMS Severity: Moderate Timing: Weeks Duration: Since onset Context: At Rest PE Risk Factors: None History of: CHF Prehospital treatment: Oxygen Modifying Factors: Nothing Associated Signs and Symptoms: Leg Swelling Past Medical History PAST MEDICAL HISTORY: CAD, CHF, DM, HTN, RI Surgical History: CABG, Pacemaker Family History Family History: Reviewed,noncontributory to illness, No family hx of Cancer, No family hx of DM, No family hx of Heart edel, No family hx of HTN, No family hx of Kidney edel, No family hx of Liver edel, No family hx of Lung edel, No family hx of Stroke Social History Smoker: Non-Smoker Alcohol: Denies ETOH Use Drugs: Denies Drug Use Lives In: Home Constitutional: denies: chills, diaphoresis, fatigue, fever, malaise, sweats, weakness, others EENTM: reports: hearing loss (RT); denies: blurred vision, double vision, ear bleeding, ear discharge, ear drainage, ear pain, ear ringing, eye pain, eye redness, mouth pain, mouth swelling, nasal discharge, nose bleeding, nose congestion, nose pain, photophobia, tearing, throat pain, throat swelling, voice changes, others Respiratory: reports: shortness of breath; denies: cough, hemoptysis, orthopnea, SOB at rest, SOB with excertion, stridor, wheezing, others Cardiovascular: denies: chest pain, dizzy spells, diaphoresis, Dyspnea on exertion, edema, irregular heart beat, left arm pain, lightheadedness, palpitations, PND, syncope, others Gastrointestinal: denies: abdomen distended, abdominal pain, blood streaked bowels, constipated, diarrhea, dysphagia, difficulty swallowing, hematemesis, melena, nausea, poor appetite, poor fluid intake, rectal bleeding, rectal pain, vomiting, others Genitourinary: denies: burning, dysuria, flank pain, frequency, hematuria, incontinence, penile discharge, penile sore, pain, testicle pain, testicle swelling, urgency, others Neurological: denies: dizziness, fainting, headache, left sided numbness, left sided weakness, numbness, paresthesia, pre-existing deficit, right sided numbness, right sided weakness, seizure, speech problems, tingling, tremors, weakness, others Musculoskeletal: reports: others (BLE swelling); denies: back pain, gout, joint pain, joint swelling, muscle pain, muscle stiffness, neck pain Integumetry: denies: bruises, change in color, change in hair/nails, dryness, laceration, lesions, lumps, rash, wounds, others Allergic/Immunocompromised: denies: Difficulty Healing, Frequent Infections, Hives, Itching, others Hematologic/Lymphatic: denies: anemia, blood clots, easy bleeding, easy bruising, swollen glands, others Endocrine: denies: excessive hunger, excessive sweating, excessive thirst, excessive urination, flushing, intolerance to cold, intolerance to heat, unexplained weight gain, unexplained weight loss, others Psychiatric: denies: anxiety, bipolar disorder, depression, hopeless, panic disorder, schizophrenia, sleepless, suicidal, others All Other Systems: Reviewed and Negative Physical Exam General Appearance: Normal HEENT: Normal ENT Inspection, Pharynx Normal, TMs Normal Neck: Full Range of Motion, Non-Tender, Normal, Normal Inspection Respiratory: Chest Non-Tender, Lungs Clear, No Accessory Muscle Use, No Respiratory Distress, Normal Breath Sounds Cardiovascular: No Edema, No JVD, No Murmur, No Gallop, Normal Peripheral Pulses, Regular Rate/Rhythm Breast Exam: Deferred Gastrointestinal: No Organomegaly, Non Tender, No Pulsatile Mass, Normal Bowel Sounds, Soft Genitalia: Deferred Pelvic: Deferred Rectal: Deferred Extremities: No calf tenderness, Normal capillary refill, Normal inspection, Normal range of motion, Non-tender, No pedal edema Musculoskeletal : Apperance: Normal Neurologic: Alert, graphics edit technician II-XII nml as Tested, No Motor Deficits, Normal Affect, Normal Mood, No Sensory Deficits Cerebellar Function: Normal Reflexes: Normal Skin: Dry, Normal Color, Warm Lymphatic: No Adenopathy Was a procedure done? Was a procedure done?: No Differential Dx Differential Diagnosis: CHF, COPD, Hypertension, Hyperventilation, Pneumonia X-Ray, Labs, Meds, VS Vital Signs Date Time Temp Pulse Resp B/P (MAP) Pulse Ox O2 Delivery O2 Flow Rate FiO2 01/31/25 20:00 77 01/31/25 19:28 98.1 77 20 160/87 (111) 97 98.1 01/31/25 19:28 77 20 97 Nasal Cannula* 2 01/31/25 18:53 98.3 78 25 166/87 (113) 98 98.3 01/31/25 18:53 78 25 98 Nasal Cannula* 2 01/31/25 18:31 30 97 Nasal Cannula* 2 01/31/25 18:22 98.1 78 30 182/99 96 98.1 01/31/25 18:17 78 Lab Test 01/31/25 21:06 01/31/25 19:26 01/31/25 18:39 Range/Units POC Glucose 128 H 70-106 mg/dl Troponin I High Sensitivity 9 12 </=54 ng/L White Blood Count 6.5 4.4-10.8 10^3/uL Red Blood Count 3.59 L 4.5-5.90 10^6/uL Hemoglobin 10.5 L 13.5-17.5 g/dL Hematocrit 31.5 L 41.0-53.0 % Mean Corpuscular Volume 87.9 80.0-100.0 fL Mean Corpuscular Hemoglobin 29.3 28.0-32.0 pg Mean Corpuscular Hemoglobin Concent 33.3 32.0-36.0 g/dL Red Cell Distribution Width 14.8 H 11.8-14.3 % Platelet Count 230 140-450 10^3/uL Mean Platelet Volume 7.5 6.9-10.8 fL Neutrophils (%) (Auto) 61.3 37.0-80.0 % Lymphocytes (%) (Auto) 25.6 10.0-50.0 % Monocytes (%) (Auto) 7.7 0.0-12.0 % Eosinophils (%) (Auto) 4.6 0.0-7.0 % Basophils (%) (Auto) 0.8 0.0-2.0 % Neutrophils # (Auto) 4.0 1.6-8.6 10 ^3/uL Lymphocytes # (Auto) 1.7 0.4-5.4 10 ^3/uL Monocytes # (Auto) 0.5 0-1.3 10 ^3/uL Eosinophils # (Auto) 0.3 0-0.8 10 ^3/uL Basophils # (Auto) 0.1 0-0.2 10 ^3/uL Nucleated Red Blood Cells 0.0 % Sodium Level 139 136-145 mmol/L Potassium Level 6.4 *H 3.5-5.1 mmol/L Chloride Level 110 H 98-107 mmol/L Carbon Dioxide Level 21 20-31 mmol/L Anion Gap 8 5-15 Blood Urea Nitrogen 38 H 9-23 mg/dL Creatinine 1.79 H 0.700-1.30 mg/dL Glomerular Filtration Rate Calc 44 >90 mL/min BUN/Creatinine Ratio 21.2 H 10.0-20.0 Serum Glucose 162 H 74-106 mg/dL Calcium Level 8.5 L 8.7-10.4 mg/dL B-Type Natriuretic Peptide 1740.83 0-100 pg/mL Current Medications Medications (Trade) Dose Ordered Sig/Shakeel Route Start Time Stop Time Status Last Admin Calcium Gluconate/ Sodium Chloride 50 ml @ 100 mls/hr Q30M IV 01/31/25 21:15 01/31/25 22:14 01/31/25 21:47 Sodium Bicarbonate 100 ml ONCE ONCE IV 01/31/25 21:15 01/31/25 21:19 DC 01/31/25 21:15 Dextrose 50 ml ONCE ONCE IV 01/31/25 21:15 01/31/25 21:19 DC 01/31/25 21:[address] [address] Ph: [phone] DIAGNOSTIC IMAGING Diagnostic Imaging Report : [id number] Signed PATIENT: AGUSTIN LEDESMAACCT: [id number] UNIT: [id number] : 1970 LOC: ER ROOM / BED: / AGE / SEX: 54 / M ADM STATUS: REG ER SERVICE 3505 ORDERING PHYSICIAN: CURTIS WEBBER MD PROCEDURE(s): CXRP - CHEST PORTABLE REASON: sob ORDER NUMBER(s): [id number], ACCESSION NUMBER(s): [id number] EXAM: XY CHEST PORTABLE CLINICAL HISTORY: sob TECHNIQUE: Single AP view of the chest WID: COMPARISON: XY CHEST TWO VIEWS ROUTINE on DOS: 01/04/25 FINDINGS: Lines and tubes: Prior median sternotomy and CABG. Left atrial appendage clip is noted. There is a left-sided dual lead AICD in place. Chest: Mild cardiomegaly and pulmonary vascular congestion. There are bilateral pleural effusions and linear perihilar and bibasilar opacities. There are Tristan B lines. No pneumothorax. The osseous structures are grossly intact. IMPRESSION: 1. Congestive pattern with small bilateral pleural effusions and mild pulmonary edema. ATED BY: MIHIR MENDOZA MD DICTATED DATE/TIME: 01/31/251900 SIGNED BY: MIHIR MENDOZA MD SIGNED DATE/TIME: 01/31/251900 CC: Time of 1ST Reevaluation: 18:50 Reevaluation 1ST: Unchanged Patient Education/Counseling: Diagnosis, Treatment, Prognosis Family Education/Counseling: No Family Present Additional Information The following tests were ordered, and results were reviewed by me: EKG-x3, BMP, CBC, BNP, XY CHEST, TROP -x3 Additional Information was gathered from interviewing the following independent historians: EMS I reviewed and agreed with the following test results read by other providers: XY CHEST I discussed treatment and results with medical personnel and: patient Comprehensive systems review obtained and negative except for what is stated in the HPI. SEPSIS Sepsis Screen Physician Orders Electrocardigram (01/31/25 18:20) Chest Portable (01/31/25 18:29) Troponin-I Hs (01/31/25 21:29) Electrocardigram (01/31/25 19:29) Electrocardigram (01/31/25 21:29) Calcium Gluc 1,000mg/50ml-Ns (01/31/25 21:15) Vital Signs Date Time Temp Pulse Resp B/P (MAP) Pulse Ox O2 Delivery O2 Flow Rate FiO2 01/31/25 20:00 77 01/31/25 19:28 98.1 77 20 160/87 (111) 97 98.1 01/31/25 19:28 77 20 97 Nasal Cannula* 2 28 01/31/25 18:53 98.3 78 25 166/87 (113) 98 98.3 01/31/25 18:53 78 25 98 Nasal Cannula* 2 28 01/31/25 18:31 30 97 Nasal Cannula* 2 28 01/31/25 18:22 98.1 78 30 182/99 96 98.1 01/31/25 18:17 78 Laboratory Tests Test 01/31/25 18:39 White Blood Count 6.5 10^3/uL (4.4-10.8) Medications Medications Dose Ordered Sig/Shakeel Route Start Time Stop Time Status Last Admin Dose Admin Calcium Gluconate/ Sodium Chloride 50 ml @ 100 mls/hr Q30M IV 01/31/25 21:15 01/31/25 22:14 01/31/25 21:47 Dextrose 50 ml ONCE ONCE IV 01/31/25 21:15 01/31/25 21:19 DC 01/31/25 21:15 Sodium Bicarbonate 100 ml ONCE ONCE IV 01/31/25 21:15 01/31/25 21:19 DC 01/31/25 21:15 Departure 1 Departure Time of Disposition: 21:48 (Patient presents with a hyperkalemia and shortness of breath concerning for heart failure exacerbation.Patient presented with shortness of breath that was concerning for possible STEMI, ACS, PE, Pneumonia, Muscle Strain, COPD, Dissection, Acute on Chronic systolic and Diastolic dysfunction. Data: 1. I ordered and reviewed the result of at least 3 labs including a CBC, BMP, and Troponin. 2. I independently interpreted the following tests: EKG which shows sinus arrhthmia and Chest X-ray which shows cardiomegaly.Risk:This patient has a high risk of morbidity due to further diagnostic testing or treatment and may suffer from an acute cardiac or respiratory disorder but is most consitent with an acute chf exacerbation. Patient should be admitted for further workup and possible expert consultation. ) Impression: Primary Impression: Acute on chronic systolic heart failure Additional Impressions: Hyperkalemia Shortness of breath Disposition: ADMITTED INPATIENT Admit to: Tele Condition: Guarded Critical Care Note Critical Care Time?: Yes Critical care comment: Hyperkalemia Authorized and Performed by: Curtis Webber MD Total critical care time: Approximately 38 minutes Due to a high probability of clinically significant, life threatening deterioration, the patient required my highest level of preparedness to intervene emergently and I personally spent this critical care time directly and personally managing the patient. This critical care time included obtaining a history; examining the patient; pulse oximetry; ordering and review of studies; arranging urgent treatment with development of a management plan; evaluation of patient's response to treatment; frequent reassessment; and, discussions with other providers. This critical care time was performed to assess and manage the high probability of imminent, life-threatening deterioration that could result in multi-organ failure. It was exclusive of separately billable procedures and treating other patients and teaching time. Please see my other sections and the rest of the note for further information on patient assessment and treatment. Stability Stability form required: No Heart Score Heart Score: Heart Score Response (Comments) Value History Moderate Suspicious 1 EKG Repolarization Disturb 1 Age 45-64 1 Risk Factors >3 or Hx ASHD 2 Troponin 1-2 x's Normal limit 1 Total 6 I personally scribed for CURTIS WEBBER MD ([email or web address]) on 01/31/25 at 18:26. Electronically submitted by Rachelle Hernandez ([email or web address]). I personally scribed for CURTIS WEBBER MD ([email or web address]) on 01/31/25 at 18:34. Electronically submitted by Rachelle Hernandez ([email or web address]). I personally scribed for CURTIS WEBBER MD ([email or web address]) on 01/31/25 at 19:06. Electronically submitted by Rachelle Hernandez ([email or web address]). CURTIS WEBBER MD Jan 31, 2025 18:26
[2025-01-31 18:53] VITALS: PULSE 78; RESP 25; O2SAT 98
--- NOTE | 2025-01-31 19:04 | DVH ---
EXAM: XY CHEST PORTABLE CLINICAL HISTORY: sob TECHNIQUE: Single AP view of the chest WID: COMPARISON: XY CHEST TWO VIEWS ROUTINE on DOS: 01/04/25 FINDINGS: Lines and tubes: Prior median sternotomy and CABG. Left atrial appendage clip is noted. There is a le ft-sided dual lead AICD in place. Chest: Mild cardiomegaly and pulmonary vascular congestion. There are bilateral pleural effusions and linear perihilar and bibasilar opacities. There are Tristan B lines. No pneumothorax. The osseous structures are grossly intact. IMPRESSION: 1. Congestive pattern with small bilateral pleural effusions and mild pulmonary edema.
[2025-01-31 19:08] LABS: Hematocrit 31.5 % (41.0-53.0); Hemoglobin 10.5 g/dL (13.5-17.5); Mean Corpuscular Hemoglobin 29.3 pg (28.0-32.0); Mean Corpuscular Volume 87.9 fL (80.0-100.0); Nucleated Red Blood Cells % 0.0 %
[2025-01-31 19:09] LABS: Sodium 139 mmol/L (136-145)
[2025-01-31 19:10] LABS: Anion Gap 8 (5-15); Carbon Dioxide 21 mmol/L (20-31)
[2025-01-31 19:15] LABS: BUN/Creatinine Ratio 21.2 (10.0-20.0); Calcium 8.5 mg/dL (8.7-10.4); Chloride 110 mmol/L (98-107)
[2025-01-31 19:16] LABS: Potassium 6.4 mmol/L (3.5-5.1)
[2025-01-31 19:17] LABS: Blood Urea Nitrogen 38 mg/dL (9-23); Glucose 162 mg/dL (74-106)
[2025-01-31 19:28] VITALS: PULSE 77; RESP 20; O2SAT 97
[2025-01-31] MEDS: CALCIUM GLUC 1,000mg/50ml-NS 50 ML IV SCH (21:15)
[2025-01-31] MEDS: InsuLIN REG 1unit/0.01ml Soln (100units/ml) IV ONE (21:15)
[2025-01-31] MEDS: SODIUM BICARB 8.4% 50Meq/50ml SYR Vial IV ONE (21:15)
[2025-01-31] MEDS: DEXTROSE (50%) 50ML SYRG IV ONE (21:15)
[2025-02-01] VITALS (7 sets, daily range): BP systolic 154–184; BP diastolic 75–99; PULSE 76–85; RESP 17–28; TEMP 97.2–97.9; O2SAT 98–100
[2025-02-01] MEDS ORDERED: DOCUSATE SOD 100 MG CAP PO PRN
[2025-02-01] MEDS ORDERED: ACETAMINOPHEN 325 MG TAB PO PRN
[2025-02-01] MEDS ORDERED: ONDANSETRON HCL 4 MG/2 ML VIAL IV PRN
[2025-02-01] MEDS: HYDROcodone-ACET 5/325MG TAB PO PRN (00:36)
[2025-02-01] MEDS: FUROSEMIDE 40 MG/4 ML VIAL IV ONE (01:24)
[2025-02-01] MEDS: DEXTROSE (50%) 50ML SYRG IV ONE (02:32)
[2025-02-01] MEDS: SODIUM BICARB 8.4% 50Meq/50ml SYR INJ IV ONE (02:32)
[2025-02-01] MEDS: SODIUM ZIRCONIUM CYCL 10 GM PAK PO ONE (02:32)
[2025-02-01] MEDS: CALCIUM GLUC 1,000mg/50ml-NS 50 ML IV ONE (02:33)
[2025-02-01] MEDS: InsuLIN REG 1unit/0.01ml Soln (100units/ml) IV ONE (02:35)
[2025-02-01 06:00] LABS: Hematocrit 28.6 % (41.0-53.0); Hemoglobin 9.7 g/dL (13.5-17.5); Mean Corpuscular Hemoglobin 29.3 pg (28.0-32.0); Mean Corpuscular Volume 86.6 fL (80.0-100.0); Nucleated Red Blood Cells % 0.1 %
[2025-02-01] MEDS ORDERED: DEXTROSE (50%) 50ML SYRG IV PRN (06:00)
[2025-02-01 06:20] LABS: Albumin 3.4 g/dL (3.2-4.8); Anion Gap 8 (5-15); BUN/Creatinine Ratio 22.4 (10.0-20.0); Calcium 8.8 mg/dL (8.7-10.4); Carbon Dioxide 23 mmol/L (20-31); Sodium 142 mmol/L (136-145); Total Protein 5.9 g/dL (5.7-8.2)
[2025-02-01 06:21] LABS: Bilirubin, Total 0.4 mg/dL (0.2-1.0)
[2025-02-01 06:35] LABS: Alanine Aminotransferase 46 U/L (7-40); Alkaline Phosphatase 203 U/L (46-116); Blood Urea Nitrogen 37 mg/dL (9-23); Chloride 111 mmol/L (98-107); Glucose 126 mg/dL (74-106); Potassium 5.3 mmol/L (3.5-5.1)
[2025-02-01] MEDS: InsuLIN REG 1unit/0.01ml Soln (100units/ml) SC SCH (06:52)
[2025-02-01] MEDS: ACCU-CHEK COMFORT CURVE STRIP VI SCH (06:52)
[2025-02-01] MEDS: ATORVASTATIN 20 MG TAB PO ONE (06:55)
[2025-02-01] MEDS: SODIUM ZIRCONIUM CYCL 10 GM PAK PO SCH (06:55)
--- NOTE | 2025-02-01 09:03 | DVHHPRES ---
History of Present Illness Resident Creating Document: NEFTALI BLANCO RESIDENT History of Present Illness 54-year-old Gambian-speaking male with past medical history of severe pulmonary hypertension, congestive heart failure, atrial fibrillation, coronary artery disease status post CABG came with complaints of right leg swelling and shortness of breath since 1 week. Patient started on 2 L oxygen. He is status post CABG done in [place]. In the ED, his BUN levels were elevated and labs showed hyperkalemia. Chest x-ray showed bilateral pleural effusion and pulmonary edema. PSHx: Pacemaker implant, coronary artery bypass graft Family history: Hypertension in father Social history: Denies smoking alcohol or drugs Home medication: Reconcile home medications Allergic history: Patient denies Review of Systems Review of Systems General: patient denies fever, fatigue, weaknes, sweating, any recent changes in appetite and weight HEENT: No headaches, visiual changes, hearing loss, tinnitus, nasal congestion and discharge, and sore throat. Cardiovascular: Complains of shortness of Breath, right-sided pedal edema Respiratory: No cough, and wheezing. Gastrointestinal: Denies nausea, vomiting, dysphagia, odynophagia, heartburn, abdominal pain, flatulence, bloating, diarrhea, constipation, change in stool, or blood in stool. Genitourinary: No dysuria, hematuria, discharge, frequency, urgency, nocturia, incontinence, and urinary retention. Endocrine: No heat or cold intolerance, polydipsia, polyuria, and polyphagia. Neurological: No dizziness, extremity weakness and numbness, tremors, gait disturbance, seizures, and memory impairment. Psychiatric: Denies depression, anxiety,or insomnia. Musculoskeletal: Denies neck pain, stiffness and swelling, back pain, muscle weakness, joint pain, stiffness, swelling, or limited range of motion. Skin: No rashes, itching, skin lesion, changes in hair, nail, skin texture and breast. Hematologic/Lymphatic: Denies easy bruising, bleeding tendencies, or lymph node enlargement. Allergies: Coded Allergies: NO KNOWN ALLERGIES (Unverified , 01/02/25) Medications Current Medications Medications Dose Ordered Sig/Shakeel Route Start Time Stop Time Status Last Admin Dose Admin Acetaminophen 325 mg Q4HP PRN PO 02/01/25 00:00 Acetaminophen/ Hydrocodone Bitart 1 tab Q4HP PRN PO 02/01/25 00:00 02/01/25 00:36 1 TAB Ondansetron HCl 4 mg Q4HP PRN IV 02/01/25 00:00 Docusate Sodium 100 mg BIDPRN PRN PO 02/01/25 00:00 Zirconium Oxide 10 gm TID PO 02/01/25 06:00 02/02/25 22:01 02/01/25 06:55 10 GM Aspirin 81 mg DAILY PO 02/01/25 10:00 Atorvastatin Calcium 40 mg HS PO 02/01/25 22:00 Diagnostic Test (Pha) 1 strip ACHS 02/01/25 07:00 02/01/25 06:52 1 STRIP Insulin Human Regular ACHS SC 02/01/25 07:00 Dextrose 50 ml UD PRN IV 02/01/25 06:00 Furosemide 40 mg DAILY IV 02/01/25 10:00 Exam Vital Signs Vital Signs Date Time Temp Pulse Resp B/P (MAP) Pulse Ox O2 Delivery O2 Flow Rate FiO2 02/01/25 06:00 69 14 137/78 (97) 99 02/01/25 01:40 Nasal Cannula* 2 28 01/31/25 23:57 98.1 98.1 Exam General Appearance: Alert, Oriented X3, Cooperative, No acute distress HEENT: Atraumatic, PERRLA, EOMI, Mucous membrane moist/pink Respiratory: Crackles+ Cardiovascular: Regular rate, Normal S1, Normal S2, No murmurs, no chest wall tenderness Abdominal: Normal bowel sounds, Soft, No tenderness, No hepatospenomegaly, No masses Extremities: No clubbing, No cyanosis, No edema, Normal pulses, No tenderness/swelling Skin: No rashes, No breakdown, No significant lesion Neuro: Normal gait, Normal speech, Strength at 5/5 X4 ext, Normal tone, Sensation intact, Cranial nerves 3-12 NL, Reflexes 2+ Psych/Mental Status: Mental status NL, Mood NL Labs/Xrays Labs Test 02/01/25 07:59 02/01/25 06:50 02/01/25 05:14 02/01/25 01:07 Range/Units Lactic Acid Level 0.8 0.4-2.0 mmol/L POC Glucose 106 70-106 mg/dl White Blood Count 5.7 4.4-10.8 10^3/uL Red Blood Count 3.30 L 4.5-5.90 10^6/uL Hemoglobin 9.7 L 13.5-17.5 g/dL Hematocrit 28.6 L 41.0-53.0 % Mean Corpuscular Volume 86.6 80.0-100.0 fL Mean Corpuscular Hemoglobin 29.3 28.0-32.0 pg Mean Corpuscular Hemoglobin Concent 33.9 32.0-36.0 g/dL Red Cell Distribution Width 14.3 11.8-14.3 % Platelet Count 210 140-450 10^3/uL Mean Platelet Volume 7.6 6.9-10.8 fL Neutrophils (%) (Auto) 58.2 37.0-80.0 % Lymphocytes (%) (Auto) 27.1 10.0-50.0 % Monocytes (%) (Auto) 10.2 0.0-12.0 % Eosinophils (%) (Auto) 3.8 0.0-7.0 % Basophils (%) (Auto) 0.7 0.0-2.0 % Neutrophils # (Auto) 3.3 1.6-8.6 10 ^3/uL Lymphocytes # (Auto) 1.6 0.4-5.4 10 ^3/uL Monocytes # (Auto) 0.6 0-1.3 10 ^3/uL Eosinophils # (Auto) 0.2 0-0.8 10 ^3/uL Basophils # (Auto) 0 0-0.2 10 ^3/uL Nucleated Red Blood Cells 0.1 % Sodium Level 142 136-145 mmol/L Potassium Level 5.3 H 3.5-5.1 mmol/L Chloride Level 111 H 98-107 mmol/L Carbon Dioxide Level 23 20-31 mmol/L Anion Gap 8 5-15 Blood Urea Nitrogen 37 H 9-23 mg/dL Creatinine 1.65 H 0.700-1.30 mg/dL Glomerular Filtration Rate Calc 49 >90 mL/min BUN/Creatinine Ratio 22.4 H 10.0-20.0 Serum Glucose 126 H 74-106 mg/dL Calcium Level 8.8 8.7-10.4 mg/dL Total Bilirubin 0.4 0.2-1.0 mg/dL Aspartate Amino Transferase (AST) 19 13-40 U/L Alanine Aminotransferase (ALT) 46 H 7-40 U/L Alkaline Phosphatase 203 H 46-116 U/L Creatine Kinase 111 46-171 U/L Total Protein 5.9 5.7-8.2 g/dL Albumin 3.4 3.2-4.8 g/dL Magnesium Level 2.4 1.6-2.6 mg/dL Test 01/31/25 21:43 01/31/25 18:39 Range/Units Troponin I High Sensitivity 12 </=54 ng/L B-Type Natriuretic Peptide 1740.83 0-100 pg/mL SEPSIS Sepsis Screen Date sepsis recognized/suspect: Jan 31, 2025 Time Sepsis recognized/suspect: 1934 Recent Procedure: No On Antibiotic Therapy: No Respiratory Rate >20: No Heart Rate >90: No Temp<36 C (96.8 F) or >38.3 C: No SBP <90 or MAP <65 mmHG: No New Acute Mental Status Change: No Is the patient on CPAP, BIPAP,: No Physician Orders Sodium Zirconium Cyclosilicate (Lokelma) (02/01/25 06:00) Transfer Orders (02/01/25 05:53) Aspirin Tablet (02/01/25 10:00) Clopidogrel Bisulfate (Plavix) (02/01/25 10:00) Atorvastatin (Lipitor) (02/01/25 22:00) Cardiac Diet-2gna,Lofat,Lochol (02/01/25 Breakfast) Glucose Blood (Accu-Chek Comfort Curve T (02/01/25 07:00) Insulin R (Human) (Insulin R) (02/01/25 07:00) Dextrose 50% Syringe (02/01/25 06:00) Furosemide Injection (Lasix Injection) (02/01/25 10:00) Daily Weight (02/01/25 05:53) Vital Signs Date Time Temp Pulse Resp B/P (MAP) Pulse Ox O2 Delivery O2 Flow Rate FiO2 02/01/25 06:00 69 14 137/78 (97) 99 02/01/25 04:00 73 02/01/25 04:00 73 16 159/81 (107) 98 02/01/25 02:00 70 20 146/80 (102) 100 02/01/25 01:40 81 28 100 Nasal Cannula* 2 28 02/01/25 01:24 153/87 Laboratory Tests Test 02/01/25 05:14 02/01/25 07:59 White Blood Count 5.7 10^3/uL (4.4-10.8) Lactic Acid Level 0.8 mmol/L (0.4-2.0) Medications Medications Dose Ordered Sig/Shakeel Route Start Time Stop Time Status Last Admin Dose Admin Acetaminophen/ Hydrocodone Bitart 1 tab Q4HP PRN PO 02/01/25 00:00 02/01/25 00:36 1 TAB Atorvastatin Calcium 40 mg ONCE ONCE PO 02/01/25 06:00 02/01/25 06:09 DC 02/01/25 06:55 40 MG Calcium Gluconate/ Sodium Chloride 50 ml @ 100 mls/hr Q30M IV 01/31/25 21:15 01/31/25 22:14 DC 01/31/25 21:47 100 MLS/HR Calcium Gluconate/ Sodium Chloride 50 ml @ 120 mls/hr ONCE ONCE IV 02/01/25 02:15 02/01/25 02:39 DC 02/01/25 02:33 120 MLS/HR Dextrose 50 ml ONCE ONCE IV 01/31/25 21:15 01/31/25 21:19 DC 01/31/25 21:15 50 ML Dextrose 50 ml ONCE ONCE IV 02/01/25 02:15 02/01/25 02:16 DC 02/01/25 02:32 50 ML Diagnostic Test (Pha) 1 strip ACHS 02/01/25 07:00 02/01/25 06:52 1 STRIP Furosemide 40 mg ONCE ONCE IV 02/01/25 01:00 02/01/25 01:01 DC 02/01/25 01:24 40 MG Insulin Human Regular 5 units ONCE ONCE IV 01/31/25 21:15 01/31/25 21:19 DC 01/31/25 21:15 5 UNITS Insulin Human Regular 10 units ONCE ONCE IV 02/01/25 02:15 02/01/25 02:16 DC 02/01/25 02:35 10 UNITS Sodium Bicarbonate 50 ml ONCE ONCE IV 02/01/25 02:15 02/01/25 02:16 DC 02/01/25 02:32 50 ML Sodium Bicarbonate 100 ml ONCE ONCE IV 01/31/25 21:15 01/31/25 21:19 DC 01/31/25 21:15 100 ML Zirconium Oxide 10 gm ONCE ONCE PO 02/01/25 02:15 02/01/25 02:16 DC 02/01/25 02:32 10 GM Zirconium Oxide 10 gm TID PO 02/01/25 06:00 02/02/25 22:01 02/01/25 06:55 10 GM Assessment/Plan Assessment/Plan #Acute on chronic heart failure, NYHA class 4-continue Lasix #Bilateral pleural effusion #Severe pulmonary hypertension #Cardiorenal syndrome-monitor input/output, continue Lasix #History of atrial fibrillation status post Watchman device, left atrial a ppendage #Hyperkalemia 6.4, 6 status post protocol for hypokalemia, EKG read 10 borderline prolonged NH interval #HFrEF likely due to dilated/ischemic cardiomyopathy status post AICD #History of CAD status post CABG on aspirin, atorvastatin, clopidogrel #GDMT Coreg 3.125 #Type 2 diabetes mellitus-HB A1c 6.7 [id number] #History of dyslipidemia-continue home medications #Right leg ulcer- Wound culture and wound consult #GI prophylaxis #DVT prophylaxis DAPT #History of COVID-19 #Normochromic normocytic anemia, chronic likely iron-deficiency early state #LBBB #CKD 3A-creatinine 1.79 #FLAVIA due to [facility] #Uncontrolled hypertension Barriers to discharge: Medical management in progress. Case discussed with Dr. Heath Code status: Full code. Complex patient care discussion needed total 33 minutes Plan discussed with: Patient My Orders Orders - NEFTALI BLANCO Procedure Category Date Status Time Admit ADMIT 01/31/25 Transmitted 23:56 Allergies MIKEY 01/31/25 In Process 23:56 Code Status CODE 01/31/25 Transmitted 23:56 Acetaminophen Tablet PHA 02/01/25 In Process (Tylenol Tablet) 00:00 Hydrocodone-Acet PHA 02/01/25 In Process 5/325mg Tab ([place] 00:00 Ondansetron Hcl PHA 02/01/25 In Process (Zofran) 00:00 Docusate Sodium PHA 02/01/25 In Process Capsule ([place] 00:00 Condition: Fair MIKEY 01/31/25 In Process 23:56 Date of Service: Jan 31, 2025 Billing Provider: CHAYO HEATH MD Common Visit Codes: [id number] INP/OBS CARE (HIGH) Secondary Visit Codes: [id number] CARE PLAN 30 MINUTES NEFTALI BLANCO Feb 01, 2025 09:03
[2025-02-01] MEDS: FUROSEMIDE 40 MG/4 ML VIAL IV SCH (10:43)
[2025-02-01] MEDS: CLOPIDOGREL BISULFATE 75 MG TAB PO ONE ×2 (10:43→16:25)
[2025-02-01] MEDS ORDERED: VANCOMYCIN PER PHARMACY 0 MG IV SCH (15:45)
[2025-02-01] MEDS ORDERED: CARV3.1240 PO (16:04)
[2025-02-01] MEDS ORDERED: ASPI-628 PO (16:05)
[2025-02-01] MEDS ORDERED: CLOP75TA70 PO (16:05)
[2025-02-01] MEDS ORDERED: ATOR-507 (16:05)
--- NOTE | 2025-02-01 16:08 | DVHPNRES ---
Progress Note Date Seen: Feb 01, 2025 Resident Creating Document: ALYCE DIAMOND RESIDENT Medical Necessity Reason Pt with a Central, PICC or Fol: No Subjective Review of Systems This is a 54-year-old male with past medical history of CHF, CAD, diabetes mellitus type 2, hypertension, pulmonary hypertension who presented to the ER with the complaint of shortness of breaths and leg swelling since 1 week. The patient states that he had shortness of breath for the last 1 week but it got worse yesterday which is why he came to the ER. He has shortness of breath on lying down and feels better on sitting up. The patient also has bilateral leg swelling since 1 week. There is redness and tenderness of the right leg with an ulcer on the ramos. The patient also complains of hearing loss in the right ear since 2-3 days. Patient states that there was a popping sound after which he has lost his hearing ability in the right ear. He complains of ringing in the right ear. There is no fever, discharge, sore throat or congestion. Past medical history: CAD, CHF, diabetes mellitus, hypertension Past surgical history: CABG, ICD placement in September 2024 Smoking: Denies Alcohol: Denies Drug use: Denies Lives at home Allergies: No known allergies Patient seen and examined at bedside. Patient is alert and oriented to time, place person and responding to all questions. He is currently on 2 L oxygen by nasal cannula. Eyes: No Pain, No Vision change, No Conjunctivae inflammation, No Eyelid inflammation, No Redness ENT: Hearing loss in the right ear, No Ear pain, No Ear discharge, No Nose pain, No Nose discharge, No Nose congestion, No Mouth pain, No Mouth swelling, No Throat pain, No Throat swelling Cardiovascular: Shortness of breath, No Chest Pain, No Palpitations, No Orthopnea, No Paroxysmal No Dyspnea, No Edema, No Lt Headedness Respiratory: No Cough, No Wheezing, No Hemoptysis, No Pleuritic Pain, No Sputum Gastrointestinal: No Nausea, No Vomiting, No Abdominal Pain, No Diarrhea, No Constipation, No Melena, No Hematochezia Genitourinary: No Dysuria, No Frequency, No Incontinence, No Hematuria, No Retention Objective vital signs Vital Sign Date Time Temp Pulse Resp B/P (MAP) Pulse Ox O2 Delivery O2 Flow Rate FiO2 02/01/25 10:43 168/86 9/3/25 08:09 97.9 76 22 99 97.9 02/01/25 08:09 Nasal Cannula* 2 28 medications Current Medications Medications Dose Ordered Sig/Shakeel Route Start Time Stop Time Status Last Admin Dose Admin Acetaminophen 325 mg Q4HP PRN PO 02/01/25 00:00 Acetaminophen/ Hydrocodone Bitart 1 tab Q4HP PRN PO 02/01/25 00:00 02/01/25 00:36 1 TAB Ondansetron HCl 4 mg Q4HP PRN IV 02/01/25 00:00 Docusate Sodium 100 mg BIDPRN PRN PO 02/01/25 00:00 Zirconium Oxide 10 gm TID PO 02/01/25 06:00 02/02/25 22:01 02/01/25 06:55 10 GM Aspirin 81 mg DAILY PO 02/01/25 10:00 02/01/25 10:42 81 MG Atorvastatin Calcium 40 mg HS PO 02/01/25 22:00 Diagnostic Test (Pha) 1 strip ACHS 02/01/25 07:00 02/01/25 11:30 1 STRIP Insulin Human Regular ACHS SC 02/01/25 07:00 Dextrose 50 ml UD PRN IV 02/01/25 06:00 Furosemide 40 mg DAILY IV 02/01/25 10:00 02/01/25 10:43 40 MG Examination General Appearance: Cooperative. Well developed. Well nourished. NAD Head Exam: Normal inspection Neck Exam: Normal inspection. Non-tender. Normal alignment Pulmonary/Respiratory: Chest non-tender, crackles bilaterally, L>R, no wheezing. Cardiovascular/Chest: Regular rate and rhythm. No murmurs. No JVD. Peripheral Pulses: 2+ Radial (R). 2+ Radial (L). 2+ Pedal (R). 2+ Pedal (L) Abdominal Exam: Normal bowel sounds. Soft. normal abdomen, no visible veins, Nontender. No hepatospenomegaly. No masses Lower extremities: 2+ BLE, pitting, right lower extremity redness, slight warmth and 2 x 2 ulceration Neuro/Mental Status: A&O x4. Coherent. Thoughts/Psych: Normal thought pattern. Appropriate mood and affect. Good judgement and insight Skin Exam: 2+ BLE, pitting, right lower extremity redness, slight warmth and 2 x 2 ulceration laboratory and microbiology Laboratory Tests 02/01/25 05:14 Test 02/01/25 05:14 Range/Units Serum Glucose 126 H 74-106 mg/dL Labs and/or images reviewed: Labs reviewed by me, Image(s) reviewed by me Problem List/Assessment/Plan Problem List/Assessment/Plan Acute on chronic HFrEF 25% Ischemic Cardiomyopathy Severe pulmonary hypertension Hypertensive urgency -strict I&Os -Chest [id number] edema with congestive pattern -BNP-elevated 1000 -GDMT as tolerated, Entresto half tablet p.o. b.i.d. and Lasix 40 mg IV b.i.d. -recent echo December showed LVEF 25% with severe pulmonary hypertension -continuously monitor labs History of CAD status post CABG in September 2024 Dyslipidemia -continue aspirin and clopidogrel -Lipitor Right lower leg cellulitis, complicated by ulcer -wound consult and wound culture ordered -previous wound cultures showed MRSA, started on vancomycin Hyperkalemia -continuously monitor lab -added Lokelny Diabetes mellitus type 2 with recent HbA1c of 6.7 -insulin sliding scale Possible Meniere's disease -follow outpatient Likely CKD stage 3 -outpatient follow up with Nephrology PUD prophylaxis: Protonix DVT prophylaxis: Lovenox Goals of care: Full code, discussed for >16 minutes Plan discussed with patient Plan discussed with Dr. Oviedo Plan discussed with: Patient Date of Service: Feb 01, 2025 Billing Provider: MARIS SHAH MD Common Visit Codes: [id number] INP/OBS CARE(HIGH) ALYCE DIAMOND RESIDENT Feb 01, 2025 16:08 MARIS SHAH MD Feb 06, 2025 00:39
[2025-02-01 16:09] LABS: Free T4 (Free Thyroxine) 1.33 ng/dL (0.89-1.76)
[2025-02-01] MEDS: VANCOMYCIN 1GM/250ML KIT 250 ML IV ONE (16:37)
[2025-02-01] MEDS: ENOXAPARIN SOD 40 MG/0.4 ML SYRINGE SC ONE (16:39)
[2025-02-01] MEDS: SACUBITRIL-VALSARTAN 24mg/26mg TAB PO SCH (16:39)
[2025-02-01] MEDS: hydrALAZINE HCL 20 MG/ML VL IV PRN (17:18)
[2025-02-01] MEDS: CARVEDILOL 3.125 MG TAB PO ONE (17:44)
[2025-02-01] MEDS: ATORVASTATIN 20 MG TAB PO SCH (22:01)
[2025-02-01] MEDS: CARVEDILOL 3.125 MG TAB PO SCH (22:02)
[2025-02-02] VITALS (8 sets, daily range): BP systolic 90–140; BP diastolic 59–78; PULSE 69–88; RESP 17–20; TEMP 97.5–98.1; O2SAT 97–100
[2025-02-02 04:54] LABS: Urine Protein, UAD 2+ (Negative)
[2025-02-02 05:31] LABS: Hematocrit 29.2 % (41.0-53.0); Hemoglobin 9.9 g/dL (13.5-17.5); Mean Corpuscular Hemoglobin 29.1 pg (28.0-32.0); Mean Corpuscular Volume 85.9 fL (80.0-100.0); Nucleated Red Blood Cells % 0.1 %
[2025-02-02] MEDS: PANTOPRAZOLE 40 MG TAB PO SCH (05:42)
[2025-02-02 05:52] LABS: Alanine Aminotransferase 35 U/L (7-40); Anion Gap 7 (5-15); BUN/Creatinine Ratio 24.0 (10.0-20.0); Carbon Dioxide 26 mmol/L (20-31); Glucose 101 mg/dL (74-106); Potassium 4.7 mmol/L (3.5-5.1); Sodium 142 mmol/L (136-145)
[2025-02-02 05:53] LABS: Bilirubin, Total 0.4 mg/dL (0.2-1.0)
[2025-02-02 05:57] LABS: Amphetamine Screen, Urine Neg (NEGATIVE); Barbiturate Scree,Urine Neg (NEGATIVE); Benzodiazephine Screen, Urine Neg (NEGATIVE); Cannabinoid Screen, Urine Neg (NEGATIVE); Cocaine Screen, Urine Neg (NEGATIVE); Opiate Scree,Urine Neg (NEGATIVE); Phencyclidine Screen, Urine Neg (NEGATIVE)
[2025-02-02 06:03] LABS: Albumin 2.9 g/dL (3.2-4.8); Alkaline Phosphatase 173 U/L (46-116); Blood Urea Nitrogen 42 mg/dL (9-23); Calcium 8.2 mg/dL (8.7-10.4); Chloride 109 mmol/L (98-107); Total Protein 5.0 g/dL (5.7-8.2)
[2025-02-02] MEDS: ENOXAPARIN SOD 40 MG/0.4 ML SYRINGE SC SCH (10:04)
[2025-02-02] MEDS: FUROSEMIDE 20 MG/2 ML VIAL IV ONE (12:45)
[2025-02-02] MEDS: VANCOMYCIN 1GM/250ML KIT 250 ML IV ONE (16:31)
--- NOTE | 2025-02-02 18:19 | DVHPNRES ---
Progress Note Date Seen: Feb 02, 2025 Resident Creating Document: ALYCE DIAMOND RESIDENT Medical Necessity Reason Pt with a Central, PICC or Fol: No Subjective Review of Systems This is a 54-year-old male with past medical history of CHF, CAD, diabetes mellitus type 2, hypertension, pulmonary hypertension who presented to the ER with the complaint of shortness of breaths and leg swelling since 1 week. The patient states that he had shortness of breath for the last 1 week but it got worse yesterday which is why he came to the ER. He has shortness of breath on lying down and feels better on sitting up. The patient also has bilateral leg swelling since 1 week. There is redness and tenderness of the right leg with an ulcer on the ramos. The patient also complains of hearing loss in the right ear since 2-3 days. Patient states that there was a popping sound after which he has lost his hearing ability in the right ear. He complains of ringing in the right ear. There is no fever, discharge, sore throat or congestion. Past medical history: CAD, CHF, diabetes mellitus, hypertension Past surgical history: CABG, ICD placement in September 2024 Smoking: Denies Alcohol: Denies Drug use: Denies Lives at home Allergies: No known allergies Patient seen and examined at bedside. Patient is alert and oriented to time, place person and responding to all questions. He is currently on 2 L oxygen by nasal cannula. Eyes: No Pain, No Vision change, No Conjunctivae inflammation, No Eyelid inflammation, No Redness ENT: Hearing loss in the right ear, No Ear pain, No Ear discharge, No Nose pain, No Nose discharge, No Nose congestion, No Mouth pain, No Mouth swelling, No Throat pain, No Throat swelling Cardiovascular: Shortness of breath, No Chest Pain, No Palpitations, No Orthopnea, No Paroxysmal No Dyspnea, No Edema, No Lt Headedness Respiratory: No Cough, No Wheezing, No Hemoptysis, No Pleuritic Pain, No Sputum Gastrointestinal: No Nausea, No Vomiting, No Abdominal Pain, No Diarrhea, No Constipation, No Melena, No Hematochezia Genitourinary: No Dysuria, No Frequency, No Incontinence, No Hematuria, No Retention 02/02- patient was seen at bedside today. Potassium level has gone down to normal range. Lokelma was put on hold. The dose of Lasix was increased from 40-60 mg IV. Vitals have remained stable over the last 24 hours. He is doing better clinically. Wound consult was ordered for him. Objective vital signs Vital Sign Date Time Temp Pulse Resp B/P (MAP) Pulse Ox O2 Delivery O2 Flow Rate FiO2 02/02/25 16:54 97.5 69 20 112/63 (79) 98 97.5 02/01/25 20:00 Nasal Cannula* 2 28 Total Intake and Output 02/01/25 02/01/25 02/02/25 15:00 23:00 07:00 Intake Total 350 ml 250 ml Output Total 700 ml 2 ml Balance -350 ml 248 ml medications Current Medications Medications Dose Ordered Sig/Shakeel Route Start Time Stop Time Status Last Admin Dose Admin Acetaminophen 325 mg Q4HP PRN PO 02/01/25 00:00 Acetaminophen/ Hydrocodone Bitart 1 tab Q4HP PRN PO 02/01/25 00:00 02/01/25 00:36 1 TAB Ondansetron HCl 4 mg Q4HP PRN IV 02/01/25 00:00 Docusate Sodium 100 mg BIDPRN PRN PO 02/01/25 00:00 Zirconium Oxide 10 gm TID PO 02/01/25 06:00 Hold 02/02/25 05:42 10 GM Aspirin 81 mg DAILY PO 02/01/25 10:00 02/02/25 10:04 81 MG Atorvastatin Calcium 40 mg HS PO 02/01/25 22:00 02/01/25 22:01 40 MG Diagnostic Test (Pha) 1 strip ACHS 02/01/25 07:00 02/02/25 17:00 1 STRIP Insulin Human Regular ACHS SC 02/01/25 07:00 02/02/25 11:30 3 UNITS Dextrose 50 ml UD PRN IV 02/01/25 06:00 Vancomycin HCl 0 ml @ 0 mls/hr UD IV 02/01/25 15:45 Sacubitril/ Valsartan 0.5 tab BID PO 02/01/25 15:45 02/02/25 10:16 0.5 TAB Pantoprazole Sodium 40 mg DAILY@0600 PO 02/02/25 06:00 02/02/25 05:42 40 MG Enoxaparin Sodium 40 mg DAILY SC 02/02/25 10:00 02/02/25 10:04 40 MG Hydralazine HCl 10 mg Q6HP PRN IV 02/01/25 16:30 02/01/25 17:18 10 MG Carvedilol 6.25 mg Q12HR PO 02/01/25 22:00 02/02/25 10:10 6.25 MG Furosemide 60 mg DAILY IV 02/03/25 10:00 Examination General Appearance: Cooperative. Well developed. Well nourished. NAD Head Exam: Normal inspection Neck Exam: Normal inspection. Non-tender. Normal alignment Pulmonary/Respiratory: Chest non-tender, crackles bilaterally, L>R, no wheezing. Cardiovascular/Chest: Regular rate and rhythm. No murmurs. No JVD. Peripheral Pulses: 2+ Radial (R). 2+ Radial (L). 2+ Pedal (R). 2+ Pedal (L) Abdominal Exam: Normal bowel sounds. Soft. normal abdomen, no visible veins, Nontender. No hepatospenomegaly. No masses Lower extremities: 2+ BLE, pitting, right lower extremity redness, slight warmth and 2 x 2 ulceration Neuro/Mental Status: A&O x4. Coherent. Thoughts/Psych: Normal thought pattern. Appropriate mood and affect. Good judgement and insight Skin Exam: 2+ BLE, pitting, right lower extremity redness, slight warmth and 2 x 2 ulceration laboratory and microbiology Laboratory Tests 02/02/25 04:37 Test 02/02/25 04:37 Range/Units Serum Glucose 101 74-106 mg/dL Labs and/or images reviewed: Labs reviewed by me, Image(s) reviewed by me Problem List/Assessment/Plan Problem List/Assessment/Plan Acute on chronic HFrEF 25% Ischemic Cardiomyopathy Severe pulmonary hypertension Hypertensive urgency -strict I&Os -Chest [id number] edema with congestive pattern -BNP-elevated 1000 -GDMT as tolerated, Entresto half tablet p.o. b.i.d. and Lasix 40 mg IV b.i.d. -recent echo December showed LVEF 25% with severe pulmonary hypertension -continuously monitor labs History of CAD status post CABG in September 2024 Dyslipidemia -continue aspirin and clopidogrel -Lipitor Right lower leg cellulitis, complicated by ulcer -wound consult and wound culture ordered -previous wound cultures showed MRSA, started on vancomycin Hyperkalemia -continuously monitor lab -[facility] on hold Diabetes mellitus type 2 with recent HbA1c of 6.7 -insulin sliding scale Possible Meniere's disease -follow outpatient Likely CKD stage 3 -outpatient follow up with Nephrology PUD prophylaxis: Protonix DVT prophylaxis: Lovenox Goals of care: Full code, discussed for >16 minutes Plan discussed with patient Plan discussed with Dr. Oviedo Plan discussed with: Patient Plan discussed with: Patient My Orders My Orders Orders - ALYCE DIAMOND RESIDENT Procedure Category Date Status Time Furosemide Injection PHA 02/03/25 In Process (Lasix Injection) 10:00 Dietary Evaluation Review Comments: CCHO-60 Cardiac Diet encourage and monitor PO intake, Promotes wound healing by following CCHO diet and achieving consistely well-controlled blood sugar. Expected Outcomes/Goals: controlled blood sugar, gradual wt loss and healed wounds Date of Service: Feb 02, 2025 Billing Provider: MARIS SHAH MD Common Visit Codes: [id number] INP/OBS CARE(HIGH) ALYCE DIAMOND RESIDENT Feb 02, 2025 18:19 MARIS SHAH MD Feb 06, 2025 01:20
[2025-02-03] VITALS (9 sets, daily range): BP systolic 134–149; BP diastolic 69–88; PULSE 72–83; RESP 16–20; TEMP 97.9–98.6; O2SAT 95–100
[2025-02-03 05:53] LABS: Hematocrit 29.2 % (41.0-53.0); Hemoglobin 9.9 g/dL (13.5-17.5); Mean Corpuscular Hemoglobin 29.0 pg (28.0-32.0); Mean Corpuscular Volume 85.5 fL (80.0-100.0); Nucleated Red Blood Cells % 0.1 %
[2025-02-03 06:07] LABS: Anion Gap 9 (5-15); Carbon Dioxide 26 mmol/L (20-31); Chloride 106 mmol/L (98-107); Potassium 4.5 mmol/L (3.5-5.1); Sodium 141 mmol/L (136-145)
[2025-02-03 06:13] LABS: BUN/Creatinine Ratio 21.8 (10.0-20.0)
[2025-02-03 06:23] LABS: Blood Urea Nitrogen 36 mg/dL (9-23); Calcium 8.2 mg/dL (8.7-10.4); Glucose 113 mg/dL (74-106)
[2025-02-03] MEDS ORDERED: FUROSEMIDE 100 MG/10ML VIAL IV SCH (10:00)
[2025-02-03] MEDS: FUROSEMIDE 100 MG/10ML VIAL IV SCH (11:33)
--- NOTE | 2025-02-03 15:31 | DVHPNRES ---
Progress Note Date Seen: Feb 03, 2025 Resident Creating Document: ALYCE DIAMOND RESIDENT Medical Necessity Reason Pt with a Central, PICC or Fol: No Subjective Review of Systems This is a 54-year-old male with past medical history of CHF, CAD, diabetes mellitus type 2, hypertension, pulmonary hypertension who presented to the ER with the complaint of shortness of breaths and leg swelling since 1 week. The patient states that he had shortness of breath for the last 1 week but it got worse yesterday which is why he came to the ER. He has shortness of breath on lying down and feels better on sitting up. The patient also has bilateral leg swelling since 1 week. There is redness and tenderness of the right leg with an ulcer on the ramos. The patient also complains of hearing loss in the right ear since 2-3 days. Patient states that there was a popping sound after which he has lost his hearing ability in the right ear. He complains of ringing in the right ear. There is no fever, discharge, sore throat or congestion. Past medical history: CAD, CHF, diabetes mellitus, hypertension Past surgical history: CABG, ICD placement in September 2024 Smoking: Denies Alcohol: Denies Drug use: Denies Lives at home Allergies: No known allergies Patient seen and examined at bedside. Patient is alert and oriented to time, place person and responding to all questions. He is currently on 2 L oxygen by nasal cannula. Eyes: No Pain, No Vision change, No Conjunctivae inflammation, No Eyelid inflammation, No Redness ENT: Hearing loss in the right ear, No Ear pain, No Ear discharge, No Nose pain, No Nose discharge, No Nose congestion, No Mouth pain, No Mouth swelling, No Throat pain, No Throat swelling Cardiovascular: Shortness of breath, No Chest Pain, No Palpitations, No Orthopnea, No Paroxysmal No Dyspnea, No Edema, No Lt Headedness Respiratory: No Cough, No Wheezing, No Hemoptysis, No Pleuritic Pain, No Sputum Gastrointestinal: No Nausea, No Vomiting, No Abdominal Pain, No Diarrhea, No Constipation, No Melena, No Hematochezia Genitourinary: No Dysuria, No Frequency, No Incontinence, No Hematuria, No Retention 02/02- The patient was seen at bedside today. Potassium level has gone down to normal range. Lokelma was put on hold. The dose of Lasix was increased from 40-60 mg IV. Vitals have remained stable over the last 24 hours. He is doing better clinically. Wound consult was ordered for him. 02/03- The patient was seen at bedside today. All vitals are stable. Potassium is within range today. Negative balance of 1550 mL today. He was put on IV Lasix 60 mg b.i.d.. He is on 2 L oxygen by nasal cannula. Objective vital signs Vital Sign Date Time Temp Pulse Resp B/P (MAP) Pulse Ox O2 Delivery O2 Flow Rate FiO2 02/03/25 13:00 97.9 83 16 138/71 (93) 95 97.9 02/03/25 08:00 Nasal Cannula* 2 28 Total Intake and Output 02/02/25 02/02/25 02/03/25 15:00 23:00 07:00 Intake Total 370 ml 200 ml Output Total 1200 ml 670 ml Balance -830 ml -470 ml medications Current Medications Medications Dose Ordered Sig/Shakeel Route Start Time Stop Time Status Last Admin Dose Admin Acetaminophen 325 mg Q4HP PRN PO 02/01/25 00:00 Acetaminophen/ Hydrocodone Bitart 1 tab Q4HP PRN PO 02/01/25 00:00 02/01/25 00:36 1 TAB Ondansetron HCl 4 mg Q4HP PRN IV 02/01/25 00:00 Docusate Sodium 100 mg BIDPRN PRN PO 02/01/25 00:00 Zirconium Oxide 10 gm TID PO 02/01/25 06:00 Hold 02/02/25 05:42 10 GM Aspirin 81 mg DAILY PO 02/01/25 10:00 02/03/25 10:58 81 MG Atorvastatin Calcium 40 mg HS PO 02/01/25 22:00 02/02/25 23:07 40 MG Diagnostic Test (Pha) 1 strip ACHS 02/01/25 07:00 02/03/25 11:30 1 STRIP Insulin Human Regular ACHS SC 02/01/25 07:00 02/03/25 00:28 2 UNITS Dextrose 50 ml UD PRN IV 02/01/25 06:00 Vancomycin HCl 0 ml @ 0 mls/hr UD IV 02/01/25 15:45 Sacubitril/ Valsartan 0.5 tab BID PO 02/01/25 15:45 02/03/25 10:58 0.5 TAB Pantoprazole Sodium 40 mg DAILY@0600 PO 02/02/25 06:00 02/03/25 05:15 40 MG Enoxaparin Sodium 40 mg DAILY SC 02/02/25 10:00 02/03/25 10:58 40 MG Hydralazine HCl 10 mg Q6HP PRN IV 02/01/25 16:30 02/01/25 17:18 10 MG Carvedilol 6.25 mg Q12HR PO 02/01/25 22:00 02/03/25 10:59 6.25 MG Furosemide 60 mg BID IV 02/03/25 10:00 02/03/25 11:33 60 MG Examination General Appearance: Cooperative. Well developed. Well nourished. Head Exam: Normal inspection Neck Exam: Normal inspection. Non-tender. Normal alignment Pulmonary/Respiratory: Chest non-tender, crackles bilaterally, L>R, no wheezing. Cardiovascular/Chest: Regular rate and rhythm. No murmurs. No JVD. Peripheral Pulses: 2+ Radial (R). 2+ Radial (L). 2+ Pedal (R). 2+ Pedal (L) Abdominal Exam: Normal bowel sounds. Soft. normal abdomen, no visible veins, Nontender. No hepatospenomegaly. No masses Lower extremities: 2+ BLE, pitting, right lower extremity redness, slight warmth and 2 x 2 ulceration,stable, non-draining dusky red eschar, measuring 2.2x2.5cm, morena tissue is hyperpigmented, no odor Neuro/Mental Status: A&O x4. Coherent. Thoughts/Psych: Normal thought pattern. Appropriate mood and affect. Good judgement and insight Skin Exam: 2+ BLE, pitting, right lower extremity redness, slight warmth and 2 x 2 ulceration Nurse was present as supervisor real estate office during the examination laboratory and microbiology Laboratory Tests 02/03/25 04:53 Test 02/03/25 04:53 Range/Units Serum Glucose 113 H 74-106 mg/dL Microbiology Date/Time Source Procedure Growth Status 02/03/25 01:20 Nose MRSA Screen - Final Complete Labs and/or images reviewed: Labs reviewed by me, Image(s) reviewed by me Problem List/Assessment/Plan Problem List/Assessment/Plan Acute on chronic HFrEF 25% Ischemic Cardiomyopathy Severe pulmonary hypertension Hypertensive urgency -strict I&Os -Chest [id number] edema with congestive pattern -BNP-elevated 1000s -GDMT as tolerated, Entresto half tablet p.o. b.i.d. and Lasix 60 mg IV b.i.d. -recent echo December showed LVEF 25% with severe pulmonary hypertension -continuously monitor labs History of CAD status post CABG in September 2024 Dyslipidemia -continue aspirin and clopidogrel -Lipitor Right lower leg cellulitis, complicated by ulcer -wound consult and wound culture ordered -previous wound cultures showed MRSA, started on vancomycin Hyperkalemia -continuously monitor lab -Lokelma on hold Diabetes mellitus type 2 with recent HbA1c of 6.7 -insulin sliding scale Possible Meniere's disease -follow outpatient Likely CKD stage 3 -outpatient follow up with Nephrology PUD prophylaxis: Protonix DVT prophylaxis: Lovenox Goals of care: Full code, discussed for >16 minutes Plan discussed with patient Plan discussed with Dr. Oviedo Plan discussed with: Patient Dietary Evaluation Review Comments: CCHO-60 Cardiac Diet encourage and monitor PO intake, Promotes wound healing by following CCHO diet and achieving consistely well-controlled blood sugar. Expected Outcomes/Goals: controlled blood sugar, gradual wt loss and healed wounds Date of Service: Feb 03, 2025 Billing Provider: MARIS SHAH MD Common Visit Codes: [id number] INP/OBS CARE(HIGH) ALYCE DIAMOND RESIDENT Feb 03, 2025 15:31 MARIS SHAH MD Feb 06, 2025 01:30
[2025-02-03] MEDS: VANCOMYCIN 500mg/100mL 100 ML IV ONE (16:45)
[2025-02-04] VITALS (9 sets, daily range): BP systolic 133–153; BP diastolic 68–86; PULSE 73–81; RESP 17–20; TEMP 97–98.2; O2SAT 90–100
[2025-02-04 06:29] LABS: Hematocrit 29.8 % (41.0-53.0); Hemoglobin 10.2 g/dL (13.5-17.5); Mean Corpuscular Hemoglobin 29.3 pg (28.0-32.0); Mean Corpuscular Volume 85.2 fL (80.0-100.0); Nucleated Red Blood Cells % 0.2 %
[2025-02-04 06:37] LABS: Chloride 104 mmol/L (98-107); Potassium 4.3 mmol/L (3.5-5.1); Sodium 141 mmol/L (136-145)
[2025-02-04 06:38] LABS: Anion Gap 10 (5-15); Carbon Dioxide 27 mmol/L (20-31)
[2025-02-04 06:43] LABS: BUN/Creatinine Ratio 20.0 (10.0-20.0)
[2025-02-04 06:49] LABS: Blood Urea Nitrogen 37 mg/dL (9-23); Calcium 8.4 mg/dL (8.7-10.4); Glucose 130 mg/dL (74-106)
--- NOTE | 2025-02-04 16:05 | DVHPNRES ---
Progress Note Date Seen: Feb 04, 2025 Resident Creating Document: ALYCE DIAMOND RESIDENT Medical Necessity Reason Pt with a Central, PICC or Fol: No Subjective Review of Systems This is a 54-year-old male with past medical history of CHF, CAD, diabetes mellitus type 2, hypertension, pulmonary hypertension who presented to the ER with the complaint of shortness of breaths and leg swelling since 1 week. The patient states that he had shortness of breath for the last 1 week but it got worse yesterday which is why he came to the ER. He has shortness of breath on lying down and feels better on sitting up. The patient also has bilateral leg swelling since 1 week. There is redness and tenderness of the right leg with an ulcer on the ramos. The patient also complains of hearing loss in the right ear since 2-3 days. Patient states that there was a popping sound after which he has lost his hearing ability in the right ear. He complains of ringing in the right ear. There is no fever, discharge, sore throat or congestion. Past medical history: CAD, CHF, diabetes mellitus, hypertension Past surgical history: CABG, ICD placement in September 2024 Smoking: Denies Alcohol: Denies Drug use: Denies Lives at home Allergies: No known allergies Patient seen and examined at bedside. Patient is alert and oriented to time, place person and responding to all questions. He is currently on 2 L oxygen by nasal cannula. Eyes: No Pain, No Vision change, No Conjunctivae inflammation, No Eyelid inflammation, No Redness ENT: Hearing loss in the right ear, No Ear pain, No Ear discharge, No Nose pain, No Nose discharge, No Nose congestion, No Mouth pain, No Mouth swelling, No Throat pain, No Throat swelling Cardiovascular: Shortness of breath, No Chest Pain, No Palpitations, No Orthopnea, No Paroxysmal No Dyspnea, No Edema, No Lt Headedness Respiratory: No Cough, No Wheezing, No Hemoptysis, No Pleuritic Pain, No Sputum Gastrointestinal: No Nausea, No Vomiting, No Abdominal Pain, No Diarrhea, No Constipation, No Melena, No Hematochezia Genitourinary: No Dysuria, No Frequency, No Incontinence, No Hematuria, No Retention /- The patient was seen at bedside today. Potassium level has gone down to normal range. Lokelma was put on hold. The dose of Lasix was increased from 40-60 mg IV. Vitals have remained stable over the last 24 hours. He is doing better clinically. Wound consult was ordered for him. 02/03- The patient was seen at bedside today. All vitals are stable. Potassium is within range today. Negative balance of 1550 mL today. He was put on IV Lasix 60 mg b.i.d.. He is on 2 L oxygen by nasal cannula. 02/04- The patient was seen at bedside today. Negative balance of 680 mL today with urine output of 2 L. But patient still has significant lower extremity edema and bilateral lung crackles, so his dose of IV Lasix was increased to 80 mg b.i.d.. Communication was done with the nurses to wean him off oxygen back to room air. We are keeping strict I&Os. We are continuing with same medication. Objective vital signs Vital Sign Date Time Temp Pulse Resp B/P (MAP) Pulse Ox O2 Delivery O2 Flow Rate FiO2 02/04/25 12:47 98.2 75 19 153/79 (103) 99 98.2 02/04/25 12:00 Nasal Cannula* 1 24 Total Intake and Output 02/03/25 02/03/25 02/04/25 15:00 23:00 07:00 Intake Total 800 ml 120 ml 400 ml Output Total 2000 ml Balance 800 ml 120 ml -1600 ml medications Current Medications Medications Dose Ordered Sig/Shakeel Route Start Time Stop Time Status Last Admin Dose Admin Acetaminophen 325 mg Q4HP PRN PO 02/01/25 00:00 Acetaminophen/ Hydrocodone Bitart 1 tab Q4HP PRN PO 02/01/25 00:00 02/01/25 00:36 1 TAB Ondansetron HCl 4 mg Q4HP PRN IV 02/01/25 00:00 Docusate Sodium 100 mg BIDPRN PRN PO 02/01/25 00:00 Zirconium Oxide 10 gm TID PO 02/01/25 06:00 Hold 02/02/25 05:42 10 GM Aspirin 81 mg DAILY PO 02/01/25 10:00 02/04/25 10:08 81 MG Atorvastatin Calcium 40 mg HS PO 02/01/25 22:00 02/03/25 20:49 40 MG Diagnostic Test (Pha) 1 strip ACHS 02/01/25 07:00 02/04/25 11:27 1 STRIP Insulin Human Regular ACHS SC 02/01/25 07:00 02/04/25 11:26 4 UNITS Dextrose 50 ml UD PRN IV 02/01/25 06:00 Vancomycin HCl 0 ml @ 0 mls/hr UD IV 02/01/25 15:45 Sacubitril/ Valsartan 0.5 tab BID PO 02/01/25 15:45 02/04/25 10:07 0.5 TAB Pantoprazole Sodium 40 mg DAILY@0600 PO 02/02/25 06:00 02/04/25 05:47 40 MG Enoxaparin Sodium 40 mg DAILY SC 02/02/25 10:00 02/04/25 10:06 40 MG Hydralazine HCl 10 mg Q6HP PRN IV 02/01/25 16:30 02/01/25 17:18 10 MG Carvedilol 6.25 mg Q12HR PO 02/01/25 22:00 02/04/25 10:07 6.25 MG Furosemide 80 mg BID IV 02/04/25 22:00 Examination General Appearance: Cooperative. Well developed. Well nourished. Head Exam: Normal inspection Neck Exam: Normal inspection. Non-tender. Normal alignment Pulmonary/Respiratory: Chest non-tender, crackles bilaterally, L>R, no wheezing. Cardiovascular/Chest: Regular rate and rhythm. No murmurs. No JVD. ICD in place Peripheral Pulses: 2+ Radial (R). 2+ Radial (L). 2+ Pedal (R). 2+ Pedal (L) Abdominal Exam: Normal bowel sounds. Soft. normal abdomen, no visible veins, Nontender. No hepatosplenomegaly. No masses Lower extremities: 3+ BLE, pitting, right lower extremity redness, slight warmth and 2 x 2 ulceration,stable, non-draining dusky red eschar, measuring 2.2x2.5cm, morena tissue is hyperpigmented, no odor Neuro/Mental Status: A&O x4. Coherent. Thoughts/Psych: Normal thought pattern. Appropriate mood and affect. Good judgement and insight Skin Exam: Scar from CABG present in the center of the chest, 5 inches long . ICD can be seen superficially near the left axilla. Ulcer as above Nurse was present as aerodynamics engineer during the examination. laboratory and microbiology Laboratory Tests 02/04/25 05:21 Test 9/6/25 05:21 Range/Units Serum Glucose 130 H 74-106 mg/dL Microbiology Date/Time Source Procedure Growth Status 02/03/25 01:20 Nose MRSA Screen - Final Complete Labs and/or images reviewed: Labs reviewed by me, Image(s) reviewed by me Problem List/Assessment/Plan Problem List/Assessment/Plan Acute on chronic HFrEF 25% Ischemic Cardiomyopathy Severe pulmonary hypertension Hypertensive urgency -strict I&Os -fluid restriction -Chest [id number] edema with congestive pattern -BNP-elevated 1000s -GDMT as tolerated, Entresto half tablet p.o. b.i.d., Coreg 6.25 and Lasix 80 mg IV b.i.d. -recent echo December showed LVEF 25% with severe pulmonary hypertension -continuously monitor labs History of CAD status post CABG in September 2024 Dyslipidemia -continue aspirin and clopidogrel -Lipitor Right lower leg cellulitis, complicated by ulcer -wound consult and wound culture ordered, -wound culture showed rare Gram-positive cocci in pairs -vancomycin Hyperkalemia,now resolved -continuously monitor lab -Lokelma on hold Uncontrolled Diabetes mellitus type 2 with recent HbA1c of 6.7 -insulin sliding scale Possible Mnire's disease -follow outpatient Likely CKD stage 3 -outpatient follow up with Nephrology PUD prophylaxis: Protonix DVT prophylaxis: Lovenox Goals of care: Full code, discussed for 20 minutes with the patient Plan discussed with patient Plan discussed with Dr. Awad Plan discussed with: Patient, Other (RN) My Orders My Orders Orders - ALYCE DIAMOND RESIDENT Procedure Category Date Status Time Furosemide Injection PHA 02/04/25 In Process (Lasix Injection) 22:00 Dietary Evaluation Review Comments: CCHO-60 Cardiac Diet encourage and monitor PO intake, Promotes wound healing by following CCHO diet and achieving consistely well-controlled blood sugar. Expected Outcomes/Goals: controlled blood sugar, gradual wt loss and healed wounds Addendum Addendum Addendum I was physically present for the [place] portions of the service provided to patient by THE RESIDENT. I have reviewed the documentation, discussed the case with resident and agree with the resident's documentation except as noted. Also the patient's clinical case was discussed with the patient's nurse. This medical document was created using an electronic medical record system with computerized dictation system. Although this document has been carefully reviewed, there might still be some phonetic and typographical errors. These areas are purely typographical due to imperfections of the software programs, and do not reflect any compromise in the patient's medical care. Late signature. Date of Service: Feb 04, 2025 Billing Provider: TONJA AWAD MD Common Visit Codes: [id number] INP/OBS CARE(HIGH) Secondary Visit Codes: [id number] CARE PLAN 30 MINUTES (20 minutes) ALYCE DIAMOND RESIDENT Feb 04, 2025 16:05 BERNABE WEATHERS RESIDENT Feb 04, 2025 16:49 TONJA AWAD MD Feb 05, 2025 06:08
[2025-02-04] MEDS: VANCOMYCIN 500mg/100mL 100 ML IV ONE (18:19)
[2025-02-04] MEDS: FUROSEMIDE 100 MG/10ML VIAL IV SCH (21:26)
[2025-02-05] VITALS (10 sets, daily range): BP systolic 112–156; BP diastolic 63–82; PULSE 73–80; RESP 16–20; TEMP 97.7–98.3; O2SAT 92–100
--- NOTE | 2025-02-05 06:10 | DVHPN2 ---
Subjective Feeling better this morning; did not share any complaints Reviewed: Care Plan, H&P, Labs, Medications, Previous Orders, Radiology Changes from previous H/P or p: Changes Objective Vitals Vital Signs Date Time Temp Pulse Resp B/P (MAP) Pulse Ox O2 Delivery O2 Flow Rate FiO2 02/05/25 05:00 98.2 74 16 156/73 (100) 96 98.2 02/04/25 20:00 Nasal Cannula* 2 28 Intake/Output Intake and Output 02/05/25 07:00 Intake Total 800 ml Balance 800 ml Intake Oral 700 ml IV Total 100 ml # Voids 8 General Appearance: Alert, Oriented X3, Cooperative HEENT: Atraumatic Lungs: Clear to auscultation, Normal air movement Cardiovascular: Regular rate, Normal S1, Normal S2, No murmurs, Other (ICD in place) Abdomen: Normal bowel sounds, Soft, No tenderness Extremities: Other (2+ pitting) Neuro: Normal speech, Cranial nerves 3-12 NL Skin: Other (Please kindly refer to nursing documentation for description of left lower extremity ulcer) Psych/Mental Status: Mental status NL, Mood NL Medications Current Medications Medications Dose Ordered Sig/Shakeel Route Start Time Stop Time Status Last Admin Dose Admin Acetaminophen 325 mg Q4HP PRN PO 02/01/25 00:00 Acetaminophen/ Hydrocodone Bitart 1 tab Q4HP PRN PO 02/01/25 00:00 02/01/25 00:36 1 TAB Ondansetron HCl 4 mg Q4HP PRN IV 02/01/25 00:00 Docusate Sodium 100 mg BIDPRN PRN PO 02/01/25 00:00 Zirconium Oxide 10 gm TID PO 02/01/25 06:00 Hold 02/02/25 05:42 10 GM Aspirin 81 mg DAILY PO 02/01/25 10:00 02/04/25 10:08 81 MG Atorvastatin Calcium 40 mg HS PO 02/01/25 22:00 02/04/25 21:26 40 MG Diagnostic Test (Pha) 1 strip ACHS 02/01/25 07:00 02/04/25 21:23 1 STRIP Insulin Human Regular ACHS SC 02/01/25 07:00 02/04/25 21:23 3 UNITS Dextrose 50 ml UD PRN IV 02/01/25 06:00 Vancomycin HCl 0 ml @ 0 mls/hr UD IV 02/01/25 15:45 Sacubitril/ Valsartan 0.5 tab BID PO 02/01/25 15:45 02/04/25 21:26 0.5 TAB Pantoprazole Sodium 40 mg DAILY@0600 PO 02/02/25 06:00 02/04/25 05:47 40 MG Enoxaparin Sodium 40 mg DAILY SC 02/02/25 10:00 02/04/25 10:06 40 MG Hydralazine HCl 10 mg Q6HP PRN IV 02/01/25 16:30 02/01/25 17:18 10 MG Carvedilol 6.25 mg Q12HR PO 02/01/25 22:00 02/04/25 21:26 6.25 MG Furosemide 80 mg BID IV 02/04/25 22:00 02/04/25 21:26 80 MG Laboratory Results Laboratory Tests 02/04/25 05:21 Urinalysis Test 02/02/25 04:04 Urine Color Light-yellow (Yellow) Urine Clarity Clear (Clear) Urine pH 5.5 (5.0-9.0) Urine Specific [place] 1.011 (1.001-1.035) Urine Protein 2+ (Negative) H Urine Ketones Negative (Negative) Urine Blood Trace /uL (Negative) H Urine Nitrite Negative (Negative) Urine Bilirubin Negative (Negative) Urine Urobilinogen Normal mg/dL (Negative) Urine Leukocyte Esterase Negative /uL (Negative) Urine RBC 7 /hpf (0 - 3) Urine Microscopic WBC < 1 /HPF (0-3) Urine Squamous Epithelial Cells None seen /hpf (<5) Urine Bacteria Few /hpf (None Seen) H Urine Hyaline Casts Few /lpf (0 - 2) Urine Sperm Present /hpf (None Seen) Urine Glucose Trace mg/dL (Normal) Microbiology Microbiology Date/Time Source Procedure Growth Status 02/03/25 01:20 Nose MRSA Screen - Final Complete Labs and/or images reviewed: Labs reviewed by me, Image(s) reviewed by me Assessment/Plan Assessment/Plan Covering: Acute on chronic congestive systolic heart failure Ischemic cardiomyopathy with ejection fraction of 25%; status post ICD Severe pulmonary hypertension Hypertensive crisis CAD status post CABG and stenting FLAVIA on suspected CKD Electrolytes disturbances Normocytic anemia; most likely inflammatory due to suspected CKD Right lower extremity ulcer with cellulitis Right lower extremity pain due to above Uncontrolled diabetes mellitus type 2 with hemoglobin A1c of 6.7% Suspected Meniere's disease; no active issue; to follow up as outpatient Reviewed available lab work, available cultures results, and imaging study Strict inputs and outputs monitoring; daily weight Continue fluid restriction Avoid nephrotoxic agent Wound care is following Continue aspirin, clopidogrel, and statin Correct electrolytes disturbances as indicated Continue GDMT and up titrate as tolerated Continue IV diuresis Continue IV antibiotics Continue insulin management and adjust according to blood glucose monitoring Gram-positive cocci in wound cultures Continue insulin management as indicated Continue pain management as indicated Continue monitoring Possible discharge tomorrow Late Entry. This medical document was created using an electronic medical record system with computerized dictation system. Although this document has been carefully reviewed, there might still be some phonetic and typographical errors. These areas are purely typographical due to imperfections of the software programs, and do not reflect any compromise in the patient's medical care. Plan discussed with: Patient, Other (Nurse) My Orders Orders - TONJA AWAD MD Procedure Category Date Status Time Basic Metabolic Panel LAB 02/06/25 Verified 04:00 Complete Blood Count LAB 02/06/25 Verified 04:00 Date of Service: Feb 05, 2025 Billing Provider: TONJA AWAD MD Common Visit Codes: [id number] INP/OBS CARE(HIGH) TONJA AWAD MD Feb 05, 2025 06:10
[2025-02-05 07:41] LABS: Hematocrit 30.1 % (41.0-53.0); Hemoglobin 10.2 g/dL (13.5-17.5); Mean Corpuscular Hemoglobin 29.7 pg (28.0-32.0); Mean Corpuscular Volume 87.1 fL (80.0-100.0); Nucleated Red Blood Cells % 0.1 %
[2025-02-05 08:01] LABS: Chloride 103 mmol/L (98-107); Potassium 4.3 mmol/L (3.5-5.1); Sodium 139 mmol/L (136-145)
[2025-02-05 08:02] LABS: Anion Gap 8 (5-15); Carbon Dioxide 28 mmol/L (20-31)
[2025-02-05 08:04] LABS: Calcium 8.3 mg/dL (8.7-10.4)
[2025-02-05 08:08] LABS: BUN/Creatinine Ratio 18.0 (10.0-20.0)
[2025-02-05 08:11] LABS: Blood Urea Nitrogen 31 mg/dL (9-23); Glucose 146 mg/dL (74-106)
[2025-02-05] MEDS ORDERED: CARVEDILOL 12.5 MG TAB PO ONE (12:15)
[2025-02-05] MEDS: VANCOMYCIN 500mg/100mL 100 ML IV ONE (18:01)
[2025-02-05] MEDS: FUROSEMIDE 100 MG/10ML VIAL IV SCH (18:02)
[2025-02-05] MEDS ORDERED: CARVEDILOL 12.5 MG TAB PO SCH (22:00)
[2025-02-06] VITALS (8 sets, daily range): BP systolic 121–147; BP diastolic 66–86; PULSE 70–86; RESP 15–18; TEMP 97.7–98.4; O2SAT 90–97
[2025-02-06 07:20] LABS: Anion Gap 8 (5-15); Carbon Dioxide 30 mmol/L (20-31); Chloride 102 mmol/L (98-107); Potassium 4.8 mmol/L (3.5-5.1); Sodium 140 mmol/L (136-145)
[2025-02-06 07:22] LABS: Hematocrit 30.5 % (41.0-53.0); Hemoglobin 10.6 g/dL (13.5-17.5); Mean Corpuscular Hemoglobin 29.2 pg (28.0-32.0); Mean Corpuscular Volume 84.3 fL (80.0-100.0); Nucleated Red Blood Cells % 0.1 %
[2025-02-06 07:26] LABS: BUN/Creatinine Ratio 19.2 (10.0-20.0)
[2025-02-06 07:28] LABS: Blood Urea Nitrogen 37 mg/dL (9-23); Calcium 8.4 mg/dL (8.7-10.4); Glucose 161 mg/dL (74-106)
[2025-02-06] MEDS: VANCOMYCIN 500mg/100mL 100 ML IV ONE (16:00)
--- NOTE | 2025-02-06 16:15 | DVHPNRES ---
Progress Note Date Seen: Feb 06, 2025 Resident Creating Document: ALYCE DIAMOND RESIDENT Medical Necessity Reason Pt with a Central, PICC or Fol: No Subjective Review of Systems This is a 54-year-old male with past medical history of CHF, CAD, diabetes mellitus type 2, hypertension, pulmonary hypertension who presented to the ER with the complaint of shortness of breaths and leg swelling since 1 week. The patient states that he had shortness of breath for the last 1 week but it got worse yesterday which is why he came to the ER. He has shortness of breath on lying down and feels better on sitting up. The patient also has bilateral leg swelling since 1 week. There is redness and tenderness of the right leg with an ulcer on the ramos. The patient also complains of hearing loss in the right ear since 2-3 days. Patient states that there was a popping sound after which he has lost his hearing ability in the right ear. He complains of ringing in the right ear. There is no fever, discharge, sore throat or congestion. Past medical history: CAD, CHF, diabetes mellitus, hypertension Past surgical history: CABG, ICD placement in September 2024 Smoking: Denies Alcohol: Denies Drug use: Denies Lives at home Allergies: No known allergies Patient seen and examined at bedside. Patient is alert and oriented to time, place person and responding to all questions. He is currently on 2 L oxygen by nasal cannula. Eyes: No Pain, No Vision change, No Conjunctivae inflammation, No Eyelid inflammation, No Redness ENT: Hearing loss in the right ear, No Ear pain, No Ear discharge, No Nose pain, No Nose discharge, No Nose congestion, No Mouth pain, No Mouth swelling, No Throat pain, No Throat swelling Cardiovascular: Shortness of breath, No Chest Pain, No Palpitations, No Orthopnea, No Paroxysmal No Dyspnea, No Edema, No Lt Headedness Respiratory: No Cough, No Wheezing, No Hemoptysis, No Pleuritic Pain, No Sputum Gastrointestinal: No Nausea, No Vomiting, No Abdominal Pain, No Diarrhea, No Constipation, No Melena, No Hematochezia Genitourinary: No Dysuria, No Frequency, No Incontinence, No Hematuria, No Retention 02/02- The patient was seen at bedside today. Potassium level has gone down to normal range. Lokelma was put on hold. The dose of Lasix was increased from 40-60 mg IV. Vitals have remained stable over the last 24 hours. He is doing better clinically. Wound consult was ordered for him. 02/03- The patient was seen at bedside today. All vitals are stable. Potassium is within range today. Negative balance of 1550 mL today. He was put on IV Lasix 60 mg b.i.d.. He is on 2 L oxygen by nasal cannula. 02/04- The patient was seen at bedside today. Negative balance of 680 mL today with urine output of 2 L. But patient still has significant lower extremity edema and bilateral lung crackles, so his dose of IV Lasix was increased to 80 mg b.i.d.. Communication was done with the nurses to wean him off oxygen back to room air. We are keeping strict I&Os. We are continuing with same medication. 02/05- The patient was seen at bedside today. Balance of 800 mL today. Patient has no new complaints. 02/06- patient was seen at bedside today. Negative balance of to 1220 mL with urine output of 1.8 L. Patient still has significant rales, repeat chest x-ray was ordered. Discharge planning for tomorrow was discussed with the patient. Strict I&O and continue with the same medication. Objective vital signs Vital Sign Date Time Temp Pulse Resp B/P (MAP) Pulse Ox O2 Delivery O2 Flow Rate FiO2 02/06/25 13:00 98.4 79 16 138/75 (96) 95 98.4 02/06/25 08:00 Room Air* 0 21 Total Intake and Output 02/05/25 02/05/25 02/06/25 15:00 23:00 07:00 Intake Total 120 ml 360 ml 100 ml Output Total 1800 ml Balance 120 ml 360 ml -1700 ml medications Current Medications Medications Dose Ordered Sig/Shakeel Route Start Time Stop Time Status Last Admin Dose Admin Acetaminophen 325 mg Q4HP PRN PO 02/01/25 00:00 Acetaminophen/ Hydrocodone Bitart 1 tab Q4HP PRN PO 02/01/25 00:00 02/01/25 00:36 1 TAB Ondansetron HCl 4 mg Q4HP PRN IV 02/01/25 00:00 Docusate Sodium 100 mg BIDPRN PRN PO 02/01/25 00:00 Zirconium Oxide 10 gm TID PO 02/01/25 06:00 Hold 02/02/25 05:42 10 GM Aspirin 81 mg DAILY PO 02/01/25 10:00 02/06/25 09:32 81 MG Atorvastatin Calcium 40 mg HS PO 02/01/25 22:00 02/05/25 21:36 40 MG Diagnostic Test (Pha) 1 strip ACHS 02/01/25 07:00 02/06/25 10:59 1 STRIP Insulin Human Regular ACHS SC 02/01/25 07:00 02/06/25 11:01 4 UNITS Dextrose 50 ml UD PRN IV 02/01/25 06:00 Vancomycin HCl 0 ml @ 0 mls/hr UD IV 02/01/25 15:45 Sacubitril/ Valsartan 0.5 tab BID PO 02/01/25 15:45 02/06/25 09:32 0.5 TAB Pantoprazole Sodium 40 mg DAILY@0600 PO 02/02/25 06:00 02/06/25 05:29 40 MG Enoxaparin Sodium 40 mg DAILY SC 02/02/25 10:00 02/06/25 09:33 40 MG Hydralazine HCl 10 mg Q6HP PRN IV 02/01/25 16:30 02/01/25 17:18 10 MG Carvedilol 6.25 mg Q12HR PO 02/01/25 22:00 02/06/25 09:32 6.25 MG Carvedilol 12.5 mg Q12HR PO 02/05/25 22:00 UNV Furosemide 80 mg BIDD IV 02/05/25 18:00 02/06/25 05:29 80 MG Examination General Appearance: Cooperative. Well developed. Well nourished. Head Exam: Normal inspection Neck Exam: Normal inspection. Non-tender. Normal alignment Pulmonary/Respiratory: Chest non-tender, crackles bilaterally, L>R, no wheezing. Cardiovascular/Chest: Regular rate and rhythm. No murmurs. No JVD. ICD in place Peripheral Pulses: 2+ Radial (R). 2+ Radial (L). 2+ Pedal (R). 2+ Pedal (L) Abdominal Exam: Normal bowel sounds. Soft. normal abdomen, no visible veins, Nontender. No hepatosplenomegaly. No masses Lower extremities: 3+ BLE, pitting, right lower extremity redness, slight warmth and 2 x 2 ulceration,stable, non-draining dusky red eschar, measuring 2.2x2.5cm, morena tissue is hyperpigmented, no odor Neuro/Mental Status: A&O x4. Coherent. Thoughts/Psych: Normal thought pattern. Appropriate mood and affect. Good judgement and insight Skin Exam: Scar from CABG present in the center of the chest, 5 inches long . ICD can be seen superficially near the left axilla. Ulcer as above Nurse was present as income tax administrator during the examination. laboratory and microbiology Laboratory Tests 02/06/25 06:30 Test 02/06/25 06:30 Range/Units Serum Glucose 161 H 74-106 mg/dL Microbiology Date/Time Source Procedure Growth Status 02/03/25 01:20 Nose MRSA Screen - Final Complete Labs and/or images reviewed: Labs reviewed by me, Image(s) reviewed by me Problem List/Assessment/Plan Problem List/Assessment/Plan Acute on chronic HFrEF 25% Ischemic Cardiomyopathy Severe pulmonary hypertension Hypertensive urgency -strict I&Os -fluid restriction -Chest [id number] edema with congestive pattern -BNP-elevated 1000s -GDMT as tolerated, Entresto half tablet p.o. b.i.d., Coreg 6.25 and Lasix 80 mg IV b.i.d. -recent echo December showed LVEF 25% with severe pulmonary hypertension -continuously monitor labs History of CAD status post CABG in September 2024 Dyslipidemia -continue aspirin and clopidogrel -Lipitor Right lower leg cellulitis,gram positive, complicated by ulcer -wound consult and wound culture ordered, -wound culture showed rare Gram-positive cocci in pairs -vancomycin Hyperkalemia,now resolved -continuously monitor lab -kella on hold Uncontrolled Diabetes mellitus type 2 with recent HbA1c of 6.7 -insulin sliding scale Possible Mnire's disease -follow outpatient Likely CKD stage 3 -outpatient follow up with Nephrology PUD prophylaxis: Protonix DVT prophylaxis: Lovenox Goals of care: Full code, discussed for > 20 minutes with the patient Plan discussed with patient Plan discussed with Dr. Oviedo Plan discussed with: Patient My Orders My Orders Orders - ALYCE DIAMOND RESIDENT Procedure Category Date Status Time Chest Xray 1 View XY 02/06/25 Taken 15:18 Dietary Evaluation Review Comments: CCHO-60 Cardiac Diet encourage and monitor PO intake, Promotes wound healing by following CCHO diet and achieving consistely well-controlled blood sugar. Expected Outcomes/Goals: controlled blood sugar, gradual wt loss and healed wounds ALYCE DIAMOND RESIDENT Feb 06, 2025 16:15
--- NOTE | 2025-02-06 19:10 | DVH ---
CHEST RADIOGRAPH Indication: shortness of breath, rales, history of CHF Technique: Single frontal view of the chest was obtained COMPARISON: XY CHEST PORTABLE on DOS: 01/31/25, XY CHEST TWO VIEWS ROUTINE on DOS: 01/04/25, XY CHEST XRA Y 1 VIEW on DOS: 01/03/25, XY CHEST XRAY 1 VIEW on DOS: 01/03/25 FINDINGS: Lines and Tubes: Left chest AICD Lungs: Pulmonary edema Pleura: Small bilateral pleural effusions No pneumothorax. Cardiomediastinal contours: Unremarkable Bones: Unremarkable IMPRESSION: Unchanged pulmonary edema
[2025-02-07] VITALS (7 sets, daily range): BP systolic 123–138; BP diastolic 64–76; PULSE 72–81; RESP 15–18; TEMP 97.8–98.7; O2SAT 96–100
[2025-02-07 08:29] LABS: Hematocrit 28.7 % (41.0-53.0); Hemoglobin 9.8 g/dL (13.5-17.5); Mean Corpuscular Hemoglobin 29.1 pg (28.0-32.0); Mean Corpuscular Volume 85.4 fL (80.0-100.0); Nucleated Red Blood Cells % 0.0 %
[2025-02-07 08:46] LABS: Chloride 102 mmol/L (98-107); Potassium 4.9 mmol/L (3.5-5.1); Sodium 140 mmol/L (136-145)
[2025-02-07 08:47] LABS: Anion Gap 8 (5-15); Carbon Dioxide 30 mmol/L (20-31)
[2025-02-07 08:52] LABS: BUN/Creatinine Ratio 19.0 (10.0-20.0)
[2025-02-07 08:54] LABS: Blood Urea Nitrogen 40 mg/dL (9-23); Calcium 8.3 mg/dL (8.7-10.4); Glucose 192 mg/dL (74-106)
[2025-02-07] MEDS: DOXYCYCLINE 100MG/100ML 100 ML IV SCH (11:00)
--- NOTE | 2025-02-07 12:49 | DVH ---
EXAM: CT CHEST WITHOUT CONTRAST INDICATION: loculated pleural effusion TECHNIQUE: Noncontrast axial images of the chest have been obtained along with coronal and sagittal r eformatted images. All CT scans at this facility use dose modulation, iterative reconstruction, and/o r weight based dosing when appropriate to reduce radiation dose to as low as reasonably achievable. COMPARISON: XY CHEST XRAY 1 VIEW on DOS: 02/06/25 FINDINGS: LOWER NECK: Postsurgical changes right anterior neck with indeterminate linear 1.8 cm radiopaque dens ity along the right lower anterior soft tissue of the neck. The appearance of bypass graft off of the anterior aspect of the aortic arch LYMPH NODES/MEDIASTINUM: Multiple likely reactive subcentimeter mediastinal lymph nodes CARDIOVASCULAR: Mild cardiomegaly. No pericardial effusion. No aneurysmal dilatation of the great ves sels. Coronary artery calcifications. Extensive postoperative changes to the heart with sternotomy wi res UPPER ABDOMEN: Unremarkable. MUSCULOSKELETAL: No acute fracture or aggressive focal osseous lesion. Multilevel degenerative change of the visualized spine. CHEST WALL: [id number] anasarca. Left anterior chest cardiac device. Mild bilateral gynecomas tia LUNG PARENCHYMA/PLEURAL SPACE: Medium right-sided loculated pleural effusion. Atelectasis in bilatera l lung bases. Decreased lung volumes fluid extending along the major fissures overall appearance of v olume overload IMPRESSION: 1. Medium right and small left pleural effusions with partial collapse of bilateral lower lobes. 2. Fluid extending along the major fissures. 3. No definitive loculated component. 4. Third-spacing with body wall edema.
--- NOTE | 2025-02-07 13:47 | DVHPNRES ---
Progress Note Date Seen: Feb 07, 2025 Resident Creating Document: ALYCE DIAMOND RESIDENT Medical Necessity Reason Pt with a Central, PICC or Fol: No Subjective Review of Systems This is a 54-year-old male with past medical history of CHF, CAD, diabetes mellitus type 2, hypertension, pulmonary hypertension who presented to the ER with the complaint of shortness of breaths and leg swelling since 1 week. The patient states that he had shortness of breath for the last 1 week but it got worse yesterday which is why he came to the ER. He has shortness of breath on lying down and feels better on sitting up. The patient also has bilateral leg swelling since 1 week. There is redness and tenderness of the right leg with an ulcer on the ramos. The patient also complains of hearing loss in the right ear since 2-3 days. Patient states that there was a popping sound after which he has lost his hearing ability in the right ear. He complains of ringing in the right ear. There is no fever, discharge, sore throat or congestion. Past medical history: CAD, CHF, diabetes mellitus, hypertension Past surgical history: CABG, ICD placement in September 2024 Smoking: Denies Alcohol: Denies Drug use: Denies Lives at home Allergies: No known allergies Patient seen and examined at bedside. Patient is alert and oriented to time, place person and responding to all questions. He is currently on 2 L oxygen by nasal cannula. Eyes: No Pain, No Vision change, No Conjunctivae inflammation, No Eyelid inflammation, No Redness ENT: Hearing loss in the right ear, No Ear pain, No Ear discharge, No Nose pain, No Nose discharge, No Nose congestion, No Mouth pain, No Mouth swelling, No Throat pain, No Throat swelling Cardiovascular: Shortness of breath, No Chest Pain, No Palpitations, No Orthopnea, No Paroxysmal No Dyspnea, No Edema, No Lt Headedness Respiratory: No Cough, No Wheezing, No Hemoptysis, No Pleuritic Pain, No Sputum Gastrointestinal: No Nausea, No Vomiting, No Abdominal Pain, No Diarrhea, No Constipation, No Melena, No Hematochezia Genitourinary: No Dysuria, No Frequency, No Incontinence, No Hematuria, No Retention 02/02- The patient was seen at bedside today. Potassium level has gone down to normal range. Lokelma was put on hold. The dose of Lasix was increased from 40-60 mg IV. Vitals have remained stable over the last 24 hours. He is doing better clinically. Wound consult was ordered for him. 02/03- The patient was seen at bedside today. All vitals are stable. Potassium is within range today. Negative balance of 1550 mL today. He was put on IV Lasix 60 mg b.i.d.. He is on 2 L oxygen by nasal cannula. 02/04- The patient was seen at bedside today. Negative balance of 680 mL today with urine output of 2 L. But patient still has significant lower extremity edema and bilateral lung crackles, so his dose of IV Lasix was increased to 80 mg b.i.d.. Communication was done with the nurses to wean him off oxygen back to room air. We are keeping strict I&Os. We are continuing with same medication. 02/05- The patient was seen at bedside today. Balance of 800 mL today. Patient has no new complaints. 02/06- patient was seen at bedside today. Negative balance of to 1220 mL with urine output of 1.8 L. Patient still has significant rales, repeat chest x-ray was ordered. Discharge planning for tomorrow was discussed with the patient. Strict I&O and continue with the same medication. 02/07-The patient was seen at bedside today. His leg edema has reduced since admission. And output was 550 mL with a balance of 490 mL. Repeat chest x-ray done yesterday showed only slight improvement in the pulmonary edema. Chest CT noncontrast was ordered for the patient which showed Medium right and small left pleural effusions with partial collapse of bilateral lower lobes. Vancomycin was discontinued and doxycycline IV was started . Patient was weaned off nasal cannula oxygen to room air. Telemetry was discontinued. Patient was put on fluid restriction of 1300 mL per day. Patient reports: Feels better Objective vital signs Vital Sign Date Time Temp Pulse Resp B/P (MAP) Pulse Ox O2 Delivery O2 Flow Rate FiO2 02/07/25 10:38 83 113/74 02/07/25 09:00 98.0 98 98.0 02/07/25 04:30 17 02/06/25 20:00 Room Air* 0 21 Total Intake and Output 02/06/25 02/06/25 02/07/25 15:00 23:00 07:00 Intake Total 700 ml 340 ml Output Total 550 ml Balance 150 ml 340 ml medications Current Medications Medications Dose Ordered Sig/Shakeel Route Start Time Stop Time Status Last Admin Dose Admin Acetaminophen 325 mg Q4HP PRN PO 02/01/25 00:00 Acetaminophen/ Hydrocodone Bitart 1 tab Q4HP PRN PO 02/01/25 00:00 02/01/25 00:36 1 TAB Ondansetron HCl 4 mg Q4HP PRN IV 02/01/25 00:00 Docusate Sodium 100 mg BIDPRN PRN PO 02/01/25 00:00 Aspirin 81 mg DAILY PO 02/01/25 10:00 02/07/25 10:39 81 MG Atorvastatin Calcium 40 mg HS PO 02/01/25 22:00 02/06/25 21:57 40 MG Diagnostic Test (Pha) 1 strip ACHS 02/01/25 07:00 02/07/25 11:30 1 STRIP Insulin Human Regular ACHS SC 02/01/25 07:00 02/07/25 11:30 4 UNITS Dextrose 50 ml UD PRN IV 02/01/25 06:00 Sacubitril/ Valsartan 0.5 tab BID PO 02/01/25 15:45 02/07/25 10:36 0.5 TAB Pantoprazole Sodium 40 mg DAILY@0600 PO 02/02/25 06:00 02/07/25 06:41 40 MG Enoxaparin Sodium 40 mg DAILY SC 02/02/25 10:00 02/07/25 10:00 40 MG Hydralazine HCl 10 mg Q6HP PRN IV 02/01/25 16:30 02/01/25 17:18 10 MG Carvedilol 6.25 mg Q12HR PO 02/01/25 22:00 02/07/25 10:38 6.25 MG Carvedilol 12.5 mg Q12HR PO 02/05/25 22:00 UNV Doxycycline Hyclate 100 ml @ 50 mls/hr Q12H IV 02/07/25 11:00 02/07/25 11:00 50 MLS/HR Furosemide 40 mg DAILY IV 02/08/25 10:00 Examination General Appearance: Cooperative. Well developed. Well nourished. Head Exam: Normal inspection Neck Exam: Normal inspection. Non-tender. Normal alignment Pulmonary/Respiratory: Chest non-tender, crackles bilaterally, L>R, no wheezing. Cardiovascular/Chest: Regular rate and rhythm. No murmurs. No JVD. ICD in place Peripheral Pulses: 2+ Radial (R). 2+ Radial (L). 2+ Pedal (R). 2+ Pedal (L) Abdominal Exam: Normal bowel sounds. Soft. normal abdomen, no visible veins, Nontender. No hepatosplenomegaly. No masses Lower extremities: 2+ BLE, pitting, right lower extremity redness, slight warmth and 2 x 2 ulceration,stable, non-draining dusky red eschar, measuring 2.2x2.5cm, morena tissue is hyperpigmented, no odor Neuro/Mental Status: A&O x4. Coherent. Thoughts/Psych: Normal thought pattern. Appropriate mood and affect. Good judgement and insight Skin Exam: Scar from CABG present in the center of the chest, 5 inches long . ICD can be seen superficially near the left axilla. Ulcer as above Nurse was present as livestock haulier during the examination. laboratory and microbiology Laboratory Tests 02/07/25 08:12 Test 02/07/25 08:12 Range/Units Serum Glucose 192 H 74-106 mg/dL Microbiology Date/Time Source Procedure Growth Status 02/03/25 01:20 Nose MRSA Screen - Final Complete Labs and/or images reviewed: Labs reviewed by me, Image(s) reviewed by me Problem List/Assessment/Plan Problem List/Assessment/Plan Acute on chronic HFrEF 25% Ischemic Cardiomyopathy Severe pulmonary hypertension Hypertensive urgency -strict I&Os -fluid restriction of 1300ml/ day -Chest [id number]-bhk-umqwrcaze edema with congestive pattern -BNP-elevated 1000s -GDMT as tolerated, Entresto half tablet p.o. b.i.d., Coreg 6.25 and Lasix 40 mg IV b.i.d. -recent echo December showed LVEF 25% with severe pulmonary hypertension -continuously monitor labs History of CAD status post CABG in September 2024 Dyslipidemia -continue aspirin and clopidogrel -Lipitor Right lower leg cellulitis,gram positive, complicated by ulcer -wound consult and wound culture ordered, -wound culture showed rare Gram-positive cocci in pairs -IV doxycycline Hyperkalemia,now resolved -continuously monitor lab -Lokelma on hold Uncontrolled Diabetes mellitus type 2 with recent HbA1c of 6.7 -insulin sliding scale Possible Mnire's disease -follow outpatient FLAVIA on suspected CKD stage 3 -avoid nephrotoxic agents -outpatient follow up with Nephrology PUD prophylaxis: Protonix DVT prophylaxis: Lovenox Goals of care: Full code, discussed for > 20 minutes with the patient Plan discussed with patient Plan discussed with Dr. Oviedo Plan discussed with: Patient My Orders My Orders Orders - ALYCE DIAMOND Procedure Category Date Status Time Chest Xray 1 View XY 02/06/25 Resulted 15:18 Discontinue Tele MIKEY 02/07/25 In Process 09:47 Maintain Fluid MIKEY 02/07/25 In Process Restrictions 09:47 Dietary Evaluation Review Comments: CCHO-60 Cardiac Diet encourage and monitor PO intake, Promotes wound healing by following CCHO diet and achieving consistely well-controlled blood sugar. Expected Outcomes/Goals: controlled blood sugar, gradual wt loss and healed wounds ALYCE DAIMOND RESIDENT Feb 07, 2025 13:47
[2025-02-08] VITALS (7 sets, daily range): BP systolic 119–156; BP diastolic 64–85; PULSE 74–84; RESP 16–18; TEMP 97.3–98.4; O2SAT 91–98
[2025-02-08 09:18] LABS: Hematocrit 30.2 % (41.0-53.0); Hemoglobin 10.2 g/dL (13.5-17.5); Mean Corpuscular Hemoglobin 28.9 pg (28.0-32.0); Mean Corpuscular Volume 85.7 fL (80.0-100.0); Nucleated Red Blood Cells % 0.0 %
[2025-02-08 09:39] LABS: Chloride 102 mmol/L (98-107); Potassium 4.9 mmol/L (3.5-5.1); Sodium 138 mmol/L (136-145)
[2025-02-08 09:40] LABS: Anion Gap 9 (5-15); Carbon Dioxide 27 mmol/L (20-31)
[2025-02-08 09:45] LABS: Calcium 8.3 mg/dL (8.7-10.4)
[2025-02-08 09:46] LABS: BUN/Creatinine Ratio 18.7 (10.0-20.0)
[2025-02-08 09:56] LABS: Blood Urea Nitrogen 36 mg/dL (9-23); Glucose 207 mg/dL (74-106)
[2025-02-08] MEDS: FUROSEMIDE 100 MG/10ML VIAL IV SCH (10:13)
--- NOTE | 2025-02-08 15:04 | DVHPNRES ---
Progress Note Date Seen: Feb 08, 2025 Resident Creating Document: ALYCE DIAMOND RESIDENT Medical Necessity Reason Pt with a Central, PICC or Fol: No Subjective Review of Systems This is a 54-year-old male with past medical history of CHF, CAD, diabetes mellitus type 2, hypertension, pulmonary hypertension who presented to the ER with the complaint of shortness of breaths and leg swelling since 1 week. The patient states that he had shortness of breath for the last 1 week but it got worse yesterday which is why he came to the ER. He has shortness of breath on lying down and feels better on sitting up. The patient also has bilateral leg swelling since 1 week. There is redness and tenderness of the right leg with an ulcer on the ramos. The patient also complains of hearing loss in the right ear since 2-3 days. Patient states that there was a popping sound after which he has lost his hearing ability in the right ear. He complains of ringing in the right ear. There is no fever, discharge, sore throat or congestion. Past medical history: CAD, CHF, diabetes mellitus, hypertension Past surgical history: CABG, ICD placement in September 2024 Smoking: Denies Alcohol: Denies Drug use: Denies Lives at home Allergies: No known allergies Patient seen and examined at bedside. Patient is alert and oriented to time, place person and responding to all questions. He is currently on 2 L oxygen by nasal cannula. Eyes: No Pain, No Vision change, No Conjunctivae inflammation, No Eyelid inflammation, No Redness ENT: Hearing loss in the right ear, No Ear pain, No Ear discharge, No Nose pain, No Nose discharge, No Nose congestion, No Mouth pain, No Mouth swelling, No Throat pain, No Throat swelling Cardiovascular: Shortness of breath, No Chest Pain, No Palpitations, No Orthopnea, No Paroxysmal No Dyspnea, No Edema, No Lt Headedness Respiratory: No Cough, No Wheezing, No Hemoptysis, No Pleuritic Pain, No Sputum Gastrointestinal: No Nausea, No Vomiting, No Abdominal Pain, No Diarrhea, No Constipation, No Melena, No Hematochezia Genitourinary: No Dysuria, No Frequency, No Incontinence, No Hematuria, No Retention 9/- The patient was seen at bedside today. Potassium level has gone down to normal range. Lokelma was put on hold. The dose of Lasix was increased from 40-60 mg IV. Vitals have remained stable over the last 24 hours. He is doing better clinically. Wound consult was ordered for him. 02/03- The patient was seen at bedside today. All vitals are stable. Potassium is within range today. Negative balance of 1550 mL today. He was put on IV Lasix 60 mg b.i.d.. He is on 2 L oxygen by nasal cannula. 02/04- The patient was seen at bedside today. Negative balance of 680 mL today with urine output of 2 L. But patient still has significant lower extremity edema and bilateral lung crackles, so his dose of IV Lasix was increased to 80 mg b.i.d.. Communication was done with the nurses to wean him off oxygen back to room air. We are keeping strict I&Os. We are continuing with same medication. 02/05- The patient was seen at bedside today. Balance of 800 mL today. Patient has no new complaints. 02/06- The patient was seen at bedside today. Negative balance of to 1220 mL with urine output of 1.8 L. Patient still has significant rales, repeat chest x-ray was ordered. Discharge planning for tomorrow was discussed with the patient. Strict I&O and continue with the same medication. 02/07-The patient was seen at bedside today. His leg edema has reduced since admission. And output was 550 mL with a balance of 490 mL. Repeat chest x-ray done yesterday showed only slight improvement in the pulmonary edema. Chest CT noncontrast was ordered for the patient which showed Medium right and small left pleural effusions with partial collapse of bilateral lower lobes. Vancomycin was discontinued and doxycycline IV was started . Patient was weaned off nasal cannula oxygen to room air. Telemetry was discontinued. Patient was put on fluid restriction of 1300 mL per day. 02/08- patient was seen at bedside today. His urine output was 950 mL with a negative balance of 150 mL. Patient is doing well without oxygen support. A social services specialist consult was placed to get a new PCP for the patient. A detailed discussion was held with the patient for possible discharge tomorrow if the pleural effusion can not be drained. Objective vital signs Vital Sign Date Time Temp Pulse Resp B/P (MAP) Pulse Ox O2 Delivery O2 Flow Rate FiO2 02/08/25 10:14 63 130/72 02/08/25 09:00 97.7 18 96 97.7 02/08/25 08:00 Room Air* 0 21 Total Intake and Output 02/07/25 02/07/25 02/08/25 15:00 23:00 07:00 Intake Total 100 ml 600 ml 100 ml Output Total 550 ml 400 ml Balance 100 ml 50 ml -300 ml medications Current Medications Medications Dose Ordered Sig/Shakeel Route Start Time Stop Time Status Last Admin Dose Admin Acetaminophen 325 mg Q4HP PRN PO 02/01/25 00:00 Acetaminophen/ Hydrocodone Bitart 1 tab Q4HP PRN PO 02/01/25 00:00 02/01/25 00:36 1 TAB Ondansetron HCl 4 mg Q4HP PRN IV 02/01/25 00:00 Docusate Sodium 100 mg BIDPRN PRN PO 02/01/25 00:00 Aspirin 81 mg DAILY PO 02/01/25 10:00 02/08/25 10:15 81 MG Atorvastatin Calcium 40 mg HS PO 02/01/25 22:00 02/07/25 22:44 40 MG Diagnostic Test (Pha) 1 strip ACHS 02/01/25 07:00 02/08/25 11:40 1 STRIP Insulin Human Regular ACHS SC 02/01/25 07:00 02/08/25 11:41 4 UNITS Dextrose 50 ml UD PRN IV 02/01/25 06:00 Sacubitril/ Valsartan 0.5 tab BID PO 02/01/25 15:45 02/08/25 10:14 0.5 TAB Pantoprazole Sodium 40 mg DAILY@0600 PO 02/02/25 06:00 02/08/25 06:27 40 MG Enoxaparin Sodium 40 mg DAILY SC 02/02/25 10:00 02/08/25 10:15 40 MG Hydralazine HCl 10 mg Q6HP PRN IV 02/01/25 16:30 02/01/25 17:18 10 MG Carvedilol 6.25 mg Q12HR PO 02/01/25 22:00 02/08/25 10:14 6.25 MG Carvedilol 12.5 mg Q12HR PO 02/05/25 22:00 UNV Doxycycline Hyclate 100 ml @ 50 mls/hr Q12H IV 02/07/25 11:00 02/08/25 10:13 50 MLS/HR Furosemide 40 mg DAILY IV 02/08/25 10:00 02/08/25 10:13 40 MG Examination General Appearance: Cooperative. Well developed. Well nourished. Head Exam: Normal inspection Neck Exam: Normal inspection. Non-tender. Normal alignment Pulmonary/Respiratory: Chest non-tender, crackles bilaterally, L>R, no wheezing. Cardiovascular/Chest: Regular rate and rhythm. No murmurs. No JVD. ICD in place Peripheral Pulses: 2+ Radial (R). 2+ Radial (L). 2+ Pedal (R). 2+ Pedal (L) Abdominal Exam: Normal bowel sounds. Soft. normal abdomen, no visible veins, Nontender. No hepatosplenomegaly. No masses Lower extremities: 1+ BLE, pitting, right lower extremity redness, slight warmth and 2 x 2 ulceration,stable, non-draining dusky red eschar, measuring 2.2x2.5cm, morena tissue is hyperpigmented, no odor Neuro/Mental Status: A&O x4. Coherent. Thoughts/Psych: Normal thought pattern. Appropriate mood and affect. Good judgement and insight Skin Exam: Scar from CABG present in the center of the chest, 5 inches long. ICD can be seen superficially in the left chest wall near the axilla. Ulcer as above Nurse was present as cloth sponger during the examination. laboratory and microbiology Laboratory Tests 02/08/25 08:50 Test 02/08/25 08:50 Range/Units Serum Glucose 207 H 74-106 mg/dL Microbiology Date/Time Source Procedure Growth Status 02/03/25 01:20 Nose MRSA Screen - Final Complete Labs and/or images reviewed: Labs reviewed by me, Image(s) reviewed by me Problem List/Assessment/Plan Problem List/Assessment/Plan Acute on chronic HFrEF 25% Ischemic Cardiomyopathy Severe pulmonary hypertension Hypertensive urgency Acute hypoxic respiratory failure likely due to above present on admission, resolved -strict I&Os -fluid restriction of 1300ml/ day -Chest [id number] edema with congestive pattern -BNP-elevated 1000s -GDMT as tolerated, Entresto half tablet p.o. b.i.d., Coreg 6.25 and Lasix 40 mg IV b.i.d. -recent echo December showed LVEF 25% with severe pulmonary hypertension -continuously monitor labs History of CAD status post CABG in September 2024 Dyslipidemia -continue aspirin and clopidogrel -Lipitor Right lower leg cellulitis,gram positive, complicated by ulcer -wound consult and wound culture ordered, -wound culture showed rare Gram-positive cocci in pairs -IV doxycycline Acute hypoxic respiratory failure -patient required 2 L oxygen by nasal cannula, weaned off today Hyperkalemia,now resolved -continuously monitor lab -Lokelma on hold Uncontrolled Diabetes mellitus type 2 with recent HbA1c of 6.7 -insulin sliding scale Possible Mnire's disease -follow outpatient FLAVIA on suspected CKD stage 3 -avoid nephrotoxic agents -outpatient follow up with Nephrology PUD prophylaxis: Protonix DVT prophylaxis: Lovenox Goals of care: Full code, discussed for > 20 minutes with the patient Plan discussed with patient Plan discussed with Dr. Oviedo Plan discussed with: Patient My Orders My Orders Orders - ALYCE DIAMOND RESIDENT Procedure Category Date Status Time * Community Cultural Development Officer CONS 02/08/25 Transmitted Consult Dietary Evaluation Review Comments: CCHO-60 Cardiac Diet encourage and monitor PO intake, Promotes wound healing by following CCHO diet and achieving consistely well-controlled blood sugar. Expected Outcomes/Goals: controlled blood sugar, gradual wt loss and healed wounds ALYCE DIAMOND RESIDENT Feb 08, 2025 15:04 BERNABE WEATHERS RESIDENT Feb 08, 2025 16:49
[2025-02-09] VITALS (7 sets, daily range): BP systolic 133–144; BP diastolic 69–90; PULSE 57–87; RESP 16–20; TEMP 97.6–98.1; O2SAT 92–97
--- NOTE | 2025-02-09 06:48 | ECG ---
[facility] Test Date: 2025-01-31 Test Time: 18:17:29 Pat Name: AGUSTIN MARTINEZ Department: Room: 0222 B Gender: M Oil Deliverer: OSMIN : 1970 Requested By: EMERGENCY EMERGENCY Order Number: [id number] Reading MD: Nikolay Panchal Measurements Intervals [place] Rate: 78 P: 46 WA: 202 QRS: -47 QRSD: 157 T: 153 QT: 432 QTc: 493 Interpretive Statements Sinus rhythm Borderline prolonged WA interval Left bundle branch block Electronically Signed On 02-14-2025 18:44:13 PDT by Nikolay Panchal Please click the below link to view image of tracing.
[2025-02-09 07:49] LABS: Chloride 104 mmol/L (98-107); Sodium 138 mmol/L (136-145)
[2025-02-09 07:50] LABS: Anion Gap 9 (5-15); Carbon Dioxide 25 mmol/L (20-31)
[2025-02-09 07:56] LABS: BUN/Creatinine Ratio 19.5 (10.0-20.0); Blood Urea Nitrogen 42 mg/dL (9-23); Calcium 8.5 mg/dL (8.7-10.4); Glucose 196 mg/dL (74-106); Hematocrit 30.1 % (41.0-53.0); Hemoglobin 10.0 g/dL (13.5-17.5); Mean Corpuscular Hemoglobin 28.8 pg (28.0-32.0); Mean Corpuscular Volume 86.9 fL (80.0-100.0); Nucleated Red Blood Cells % 0.1 %; Potassium 5.2 mmol/L (3.5-5.1)
[2025-02-09 10:38] LABS: INR 1.02 (0.9-1.15); Partial Thromboplastin Time 29.3 SEC (24.5-34.5); Prothrombin Time 10.8 sec (9.3-11.8)
[2025-02-09] MEDS: SODIUM ZIRCONIUM CYCL 10 GM PAK PO ONE (10:48)
--- NOTE | 2025-02-09 18:10 | DVHPNRES ---
Progress Note Date Seen: Feb 09, 2025 Resident Creating Document: ALYCE DIAMOND RESIDENT Medical Necessity Reason Pt with a Central, PICC or Fol: No Subjective Review of Systems This is a 54-year-old male with past medical history of CHF, CAD, diabetes mellitus type 2, hypertension, pulmonary hypertension who presented to the ER with the complaint of shortness of breaths and leg swelling since 1 week. The patient states that he had shortness of breath for the last 1 week but it got worse yesterday which is why he came to the ER. He has shortness of breath on lying down and feels better on sitting up. The patient also has bilateral leg swelling since 1 week. There is redness and tenderness of the right leg with an ulcer on the ramos. The patient also complains of hearing loss in the right ear since 2-3 days. Patient states that there was a popping sound after which he has lost his hearing ability in the right ear. He complains of ringing in the right ear. There is no fever, discharge, sore throat or congestion. Past medical history: CAD, CHF, diabetes mellitus, hypertension Past surgical history: CABG, ICD placement in September 2024 Smoking: Denies Alcohol: Denies Drug use: Denies Lives at home Allergies: No known allergies Patient seen and examined at bedside. Patient is alert and oriented to time, place person and responding to all questions. He is currently on 2 L oxygen by nasal cannula. Eyes: No Pain, No Vision change, No Conjunctivae inflammation, No Eyelid inflammation, No Redness ENT: Hearing loss in the right ear, No Ear pain, No Ear discharge, No Nose pain, No Nose discharge, No Nose congestion, No Mouth pain, No Mouth swelling, No Throat pain, No Throat swelling Cardiovascular: Shortness of breath, No Chest Pain, No Palpitations, No Orthopnea, No Paroxysmal No Dyspnea, No Edema, No Lt Headedness Respiratory: No Cough, No Wheezing, No Hemoptysis, No Pleuritic Pain, No Sputum Gastrointestinal: No Nausea, No Vomiting, No Abdominal Pain, No Diarrhea, No Constipation, No Melena, No Hematochezia Genitourinary: No Dysuria, No Frequency, No Incontinence, No Hematuria, No Retention /- The patient was seen at bedside today. Potassium level has gone down to normal range. Lokelma was put on hold. The dose of Lasix was increased from 40-60 mg IV. Vitals have remained stable over the last 24 hours. He is doing better clinically. Wound consult was ordered for him. 02/03- The patient was seen at bedside today. All vitals are stable. Potassium is within range today. Negative balance of 1550 mL today. He was put on IV Lasix 60 mg b.i.d.. He is on 2 L oxygen by nasal cannula. 02/04- The patient was seen at bedside today. Negative balance of 680 mL today with urine output of 2 L. But patient still has significant lower extremity edema and bilateral lung crackles, so his dose of IV Lasix was increased to 80 mg b.i.d.. Communication was done with the nurses to wean him off oxygen back to room air. We are keeping strict I&Os. We are continuing with same medication. 02/05- The patient was seen at bedside today. Balance of 800 mL today. Patient has no new complaints. 02/06- The patient was seen at bedside today. Negative balance of to 1220 mL with urine output of 1.8 L. Patient still has significant rales, repeat chest x-ray was ordered. Discharge planning for tomorrow was discussed with the patient. Strict I&O and continue with the same medication. 02/07-The patient was seen at bedside today. His leg edema has reduced since admission. And output was 550 mL with a balance of 490 mL. Repeat chest x-ray done yesterday showed only slight improvement in the pulmonary edema. Chest CT noncontrast was ordered for the patient which showed Medium right and small left pleural effusions with partial collapse of bilateral lower lobes. Vancomycin was discontinued and doxycycline IV was started . Patient was weaned off nasal cannula oxygen to room air. Telemetry was discontinued. Patient was put on fluid restriction of 1300 mL per day. 02/08- patient was seen at bedside today. His urine output was 950 mL with a negative balance of 150 mL. Patient is doing well without oxygen support. A criminal justice social worker consult was placed to get a new PCP for the patient. A detailed discussion was held with the patient for possible discharge tomorrow if the pleural effusion can not be drained. 02/09- The patient was seen at bedside today. His urine output today was 500 mL with a positive balance of 540 mL. Patient is doing well without oxygen support. Thoracentesis was done for to drain the pleural effusion from right side sample was sent for testing. Objective vital signs Vital Sign Date Time Temp Pulse Resp B/P (MAP) Pulse Ox O2 Delivery O2 Flow Rate FiO2 02/09/25 13:00 80 137/77 02/09/25 13:00 97.7 18 96 97.7 02/09/25 08:00 Room Air* 0 21 Total Intake and Output 02/08/25 02/08/25 02/09/25 15:00 23:00 07:00 Intake Total 340 ml 500 ml 200 ml Output Total 500 ml Balance 340 ml 0 ml 200 ml medications Current Medications Medications Dose Ordered Sig/Shakeel Route Start Time Stop Time Status Last Admin Dose Admin Acetaminophen 325 mg Q4HP PRN PO 02/01/25 00:00 Acetaminophen/ Hydrocodone Bitart 1 tab Q4HP PRN PO 02/01/25 00:00 02/01/25 00:36 1 TAB Ondansetron HCl 4 mg Q4HP PRN IV 02/01/25 00:00 Docusate Sodium 100 mg BIDPRN PRN PO 02/01/25 00:00 Aspirin 81 mg DAILY PO 02/01/25 10:00 02/09/25 10:53 81 MG Atorvastatin Calcium 40 mg HS PO 02/01/25 22:00 02/08/25 22:02 40 MG Diagnostic Test (Pha) 1 strip ACHS 02/01/25 07:00 02/09/25 11:30 1 STRIP Insulin Human Regular ACHS SC 02/01/25 07:00 02/09/25 12:39 4 UNITS Dextrose 50 ml UD PRN IV 02/01/25 06:00 Pantoprazole Sodium 40 mg DAILY@0600 PO 02/02/25 06:00 02/09/25 05:44 40 MG Enoxaparin Sodium 40 mg DAILY SC 02/02/25 10:00 02/09/25 10:49 40 MG Hydralazine HCl 10 mg Q6HP PRN IV 02/01/25 16:30 02/01/25 17:18 10 MG Carvedilol 6.25 mg Q12HR PO 02/01/25 22:00 02/09/25 10:52 6.25 MG Carvedilol 12.5 mg Q12HR PO 02/05/25 22:00 UNV Doxycycline Hyclate 100 ml @ 50 mls/hr Q12H IV 02/07/25 11:00 02/09/25 10:49 50 MLS/HR Furosemide 40 mg DAILY PO 02/10/25 10:00 Empaglifozin 10 mg DAILY PO 02/10/25 10:00 Examination General Appearance: Cooperative. Well developed. Well nourished. Head Exam: Normal inspection Neck Exam: Normal inspection. Non-tender. Normal alignment Pulmonary/Respiratory: Chest non-tender, crackles on left side, no wheezing. Cardiovascular/Chest: Regular rate and rhythm. No murmurs. No JVD. ICD in place Peripheral Pulses: 2+ Radial (R). 2+ Radial (L). 2+ Pedal (R). 2+ Pedal (L) Abdominal Exam: Normal bowel sounds. Soft. normal abdomen, no visible veins, Nontender. No hepatosplenomegaly. No masses Lower extremities: 1+ BLE, pitting, right lower extremity redness, slight warmth and 2 x 2 ulceration,stable, eschar fallen off, measuring 2.2x2.5cm, morena tissue is hyperpigmented, no odor Neuro/Mental Status: A&O x4. Coherent. Thoughts/Psych: Normal thought pattern. Appropriate mood and affect. Good judgement and insight Skin Exam: Scar from CABG present in the center of the chest, 5 inches long. ICD can be seen superficially in the left chest wall near the axilla. Ulcer as above Nurse was present as meteorological aide during the examination. laboratory and microbiology Laboratory Tests 02/09/25 06:48 Test 02/09/25 06:48 Range/Units Serum Glucose 196 H 74-106 mg/dL Microbiology Date/Time Source Procedure Growth Status 02/03/25 01:20 Nose MRSA Screen - Final Complete Labs and/or images reviewed: Labs reviewed by me, Image(s) reviewed by me Problem List/Assessment/Plan Problem List/Assessment/Plan Acute on chronic HFrEF 25% Ischemic Cardiomyopathy Severe pulmonary hypertension Hypertensive urgency Acute hypoxic respiratory failure likely due to above present on admission, resolved Right pleural effusion s/p thoracentesis 1l fluid -strict I&Os -fluid restriction of 1300ml/ day -Chest [id number] edema with congestive pattern -BNP-elevated 1000s -GDMT as tolerated, Entresto half tablet p.o. b.i.d., Coreg 6.25 and Lasix 40 mg IV b.i.d. -recent echo December showed LVEF 25% with severe pulmonary hypertension -continuously monitor labs -sent pleural fluid for cytology, culture,protein, LDH History of CAD status post CABG in September 2024 Dyslipidemia -continue aspirin and clopidogrel -Lipitor Right lower leg cellulitis,gram positive, complicated by ulcer -wound consult and wound culture ordered, -wound culture showed rare Gram-positive cocci in pairs -IV doxycycline Acute hypoxic respiratory failure -patient required 2 L oxygen by nasal cannula, weaned off today Hyperkalemia -continuously monitor lab -kelok Uncontrolled Diabetes mellitus type 2 with recent HbA1c of 6.7 -insulin sliding scale Possible Mnire's disease -follow outpatient FLAVIA on suspected CKD stage 3 -avoid nephrotoxic agents -outpatient follow up with Nephrology PUD prophylaxis: Protonix DVT prophylaxis: Lovenox Goals of care: Full code, discussed for > 20 minutes with the patient Plan discussed with patient Plan discussed with Dr. Oviedo Plan discussed with: Patient My Orders My Orders Orders - ALYCE DIAMOND RESIDENT Procedure Category Date Status Time * Emergency Room Physician Assistant CONS 02/08/25 Transmitted Consult Furosemide Tablet PHA 02/10/25 In Process (Lasix Tablet) 10:00 Empagliflozin PHA 02/10/25 In Process (Jardiance) 10:00 Dietary Evaluation Review Comments: CCHO-60 Cardiac Diet encourage and monitor PO intake, Promotes wound healing by following CCHO diet and achieving consistely well-controlled blood sugar. Expected Outcomes/Goals: controlled blood sugar, gradual wt loss and healed wounds ALYCE DIAMOND RESIDENT Feb 09, 2025 18:10
--- NOTE | 2025-02-09 18:44 | DVHNC2 ---
Chest Tube Indication: Effusion Anesthetic: Lidocaine Site: R Posterior Axillary Drainage: Fluid Informed consent obtained: Yes Risks/benefits/alt described: Yes Notes Ultrasound-guided thoracentesis procedure note: Physician: Dr Lory Chery Attending- DR. CORTEZ Date: 02/09/25 Time: 1814 Consent: Consent was obtained from patient's healthcare proxy prior to procedure. Indication, risks, and benefits were explained at length. Procedure summary: A timeout was performed and a chest x-ray was reviewed prior to procedure. The appropriate site was confirmed and marked. My hands were washed immediately prior to the procedure, I wore a surgical cap, mask with protective eyewear, sterile gown and sterile gloves throughout the procedure. The patient was prepped and draped in a sterile manner using chlorhexidine scrub after the appropriate level was percussed and confirmed by ultrasound. 1% lidocaine was used to anesthetize the skin, subcutaneous tissue, superior aspect of the rib periosteum and parietal pleura. A finder needle was then introduced over the superior aspect of the rib to locate the pleural fluid; whitish sanguinous fluid was aspirated. A 10 blade scalpel was used to michael the skin at the insertion site. Thoracentesis needle was then introduced through the skin incision into the pleural space using negative aspiration pressure. The thoracentesis catheter was then threaded without difficulty. 1000 mL's of serous colored fluid were removed without difficulty. The catheter was then removed. No immediate complications were noted during the procedure. A postprocedure chest x-ray is pending at the time of this note. The pleural fluid will be sent for cultures and cytology. Estimated blood loss is less than .5 mL's. CPT: 43625 Date of Service: Feb 09, 2025 Billing Provider: MARIS SHAH MD Common Visit Codes: PROCEDURE ONLY LORY CHERY RESIDENT Feb 09, 2025 18:44
[2025-02-10] VITALS (7 sets, daily range): BP systolic 122–138; BP diastolic 66–80; PULSE 75–91; RESP 14–18; TEMP 97.7–98.6; O2SAT 93–97
[2025-02-10 04:34] LABS: Anion Gap 9 (5-15); Carbon Dioxide 25 mmol/L (20-31); Chloride 103 mmol/L (98-107); Hematocrit 30.6 % (41.0-53.0); Hemoglobin 10.5 g/dL (13.5-17.5); Mean Corpuscular Hemoglobin 29.2 pg (28.0-32.0); Mean Corpuscular Volume 85.2 fL (80.0-100.0); Nucleated Red Blood Cells % 0.1 %; Potassium 5.1 mmol/L (3.5-5.1); Sodium 137 mmol/L (136-145)
[2025-02-10 04:41] LABS: BUN/Creatinine Ratio 24.3 (10.0-20.0)
[2025-02-10 04:44] LABS: Blood Urea Nitrogen 54 mg/dL (9-23); Calcium 8.5 mg/dL (8.7-10.4)
[2025-02-10 04:53] LABS: Glucose 182 mg/dL (74-106)
--- NOTE | 2025-02-10 05:36 | DVH ---
CHEST RADIOGRAPH Indication: S/P Thoracentesis Technique: Single frontal view of the chest was obtained COMPARISON: CT CHEST WITHOUT CONTRAST on DOS: 02/07/25, XY CHEST XRAY 1 VIEW on DOS: 02/06/25, XY CHEST P ORTABLE on DOS: 01/31/25, XY CHEST TWO VIEWS ROUTINE on DOS: 01/04/25, XY CHEST XRAY 1 VIEW on DOS: 5 FINDINGS: Lines and Tubes: None. Left anterior chest wall dual lead cardiac pacing device. Lungs: Slight interval improvement in bilateral pleural effusions and bibasilar pulmonary airspace di sease. No pneumothorax. Cardiomediastinal contours: Cardiomegaly status post median sternotomy. Bones: Unremarkable IMPRESSION: 1. Slight interval improvement in bilateral pleural effusions and bibasilar pulmonary airspace diseas e. 2. Cardiomegaly.
[2025-02-10] MEDS: EMPAGLIFLOZIN 10 MG TAB PO SCH (09:40)
[2025-02-10] MEDS: FUROSEMIDE 20 MG TAB PO SCH (09:40)
[2025-02-10] MEDS: SODIUM CHLORIDE 0.9% 250 ML IV ONE (10:30)
[2025-02-10] MEDS ORDERED: CARV6.2551 PO (12:36)
[2025-02-10] MEDS ORDERED: ASPI-325 PO (12:36)
[2025-02-10] MEDS ORDERED: EMPA1TAB PO (12:36)
[2025-02-10] MEDS ORDERED: FURO20TA3 PO (12:36)
[2025-02-10] MEDS ORDERED: CLOP75TA70 PO (12:36)
[2025-02-10] MEDS ORDERED: ATOR20TA50 PO (12:36)
[2025-02-10] MEDS ORDERED: METF-489 PO (12:37)
[2025-02-10] MEDS ORDERED: PANT40T PO (12:37)
[2025-02-10 13:33] LABS: Chloride 104.0 mmol/L (98-107); Potassium 4.9 mmol/L (3.5-5.1); Sodium 138.0 mmol/L (136-145)
[2025-02-10 13:34] LABS: Anion Gap 9.0 (5-15); Carbon Dioxide 25.0 mmol/L (20-31)
[2025-02-10 13:36] LABS: Calcium 8.1 mg/dL (8.7-10.4)
[2025-02-10 13:39] LABS: BUN/Creatinine Ratio 32.5 (10.0-20.0)
[2025-02-10 13:42] LABS: Albumin 2.9 g/dL (3.2-4.8); Blood Urea Nitrogen 67.0 mg/dL (9-23); Glucose 226.0 mg/dL (74-106)
--- NOTE | 2025-02-10 16:27 | DVHDSRES ---
Discharge Summary Date of Admission Resident Creating Document: ALYCE DIAMOND RESIDENT Jan 31, 2025 at 23:56 Date of Discharge: Feb 10, 2025 Admitting Diagnosis Acute on chronic systolic heart failure Labs/Diagnostic Data: Laboratory Results Test 02/10/25 12:58 02/10/25 11:20 02/10/25 03:37 02/09/25 18:00 Sodium Level 138 mmol/L (136-145) Potassium Level 4.9 mmol/L (3.5-5.1) Chloride Level 104 mmol/L (98-107) Carbon Dioxide Level 25 mmol/L (20-31) Anion Gap 9 (5-15) Blood Urea Nitrogen 67 mg/dL (9-23) Creatinine 2.06 mg/dL (0.700-1.30) Estimated GFR () 43 mL/min Estimated GFR (Non- 36 mL/min BUN/Creatinine Ratio 32.5 (10.0-20.0) Serum Glucose 226 mg/dL (74-106) Calcium Level 8.1 mg/dL (8.7-10.4) Phosphorus Level 3.9 mg/dL (2.4-5.1) Albumin 2.9 g/dL (3.2-4.8) POC Glucose 226 mg/dl (70-106) White Blood Count 7.5 10^3/uL (4.4-10.8) Red Blood Count 3.59 10^6/uL (4.5-5.90) Hemoglobin 10.5 g/dL (13.5-17.5) Hematocrit 30.6 % (41.0-53.0) Mean Corpuscular Volume 85.2 fL (80.0-100.0) Mean Corpuscular Hemoglobin 29.2 pg (28.0-32.0) Mean Corpuscular Hemoglobin Concent 34.3 g/dL (32.0-36.0) Red Cell Distribution Width 14.2 % (11.8-14.3) Platelet Count 211 10^3/uL (140-450) Mean Platelet Volume 7.7 fL (6.9-10.8) Neutrophils (%) (Auto) 68.3 % (37.0-80.0) Lymphocytes (%) (Auto) 18.0 % (10.0-50.0) Monocytes (%) (Auto) 7.5 % (0.0-12.0) Eosinophils (%) (Auto) 5.4 % (0.0-7.0) Basophils (%) (Auto) 0.8 % (0.0-2.0) Neutrophils # (Auto) 5.1 10 ^3/uL (1.6-8.6) Lymphocytes # (Auto) 1.3 10 ^3/uL (0.4-5.4) Monocytes # (Auto) 0.6 10 ^3/uL (0-1.3) Eosinophils # (Auto) 0.4 10 ^3/uL (0-0.8) Basophils # (Auto) 0.1 10 ^3/uL (0-0.2) Nucleated Red Blood Cells 0.1 % Glomerular Filtration Rate Calc 34 mL/min (>90) Body Fluid Source Pleural fluid Body Fluid WBC (Manual) 789 CUMM (0-200) Body Fluid RBC (Manual) 445 CUMM (0-2000) Body Fluid Mononuclear Cells 95 % Body Fluid Polymorphonuclear Cells 5 % (0-25) Test 02/09/25 09:46 02/07/25 08:12 02/02/25 04:37 02/02/25 04:04 Prothrombin Time 10.8 sec (9.3-11.8) Prothrombin Time INR 1.02 (0.9-1.15) Activated Partial Thromboplast Time 29.3 SEC (24.5-34.5) Random Vancomycin Level 17.5 ug/mL (5-10) Total Bilirubin 0.4 mg/dL (0.2-1.0) Aspartate Amino Transferase (AST) 15 U/L (13-40) Alanine Aminotransferase (ALT) 35 U/L (7-40) Alkaline Phosphatase 173 U/L (46-116) Total Protein 5.0 g/dL (5.7-8.2) Urine Color Light-yellow (Yellow) Urine Clarity Clear (Clear) Urine pH 5.5 (5.0-9.0) Urine Specific Mccleary 1.011 (1.001-1.035) Urine Protein 2+ (Negative) Urine Ketones Negative (Negative) Urine Blood Trace /uL (Negative) Urine Nitrite Negative (Negative) Urine Bilirubin Negative (Negative) Urine Urobilinogen Normal mg/dL (Negative) Urine Leukocyte Esterase Negative /uL (Negative) Urine RBC 7 /hpf (0 - 3) Urine Microscopic WBC < 1 /HPF (0-3) Urine Squamous Epithelial Cells None seen /hpf (<5) Urine Bacteria Few /hpf (None Seen) Urine Hyaline Casts Few /lpf (0 - 2) Urine Sperm Present /hpf (None Seen) Urine Glucose Trace mg/dL (Normal) Urine Opiates Screen Neg (NEGATIVE) Urine Fentanyl Screen Neg (NEGATIVE) Urine Barbiturates Screen Neg (NEGATIVE) Urine Phencyclidine Screen Neg (NEGATIVE) Urine Amphetamines Screen Neg (NEGATIVE) Urine Benzodiazepines Screen Neg (NEGATIVE) Urine Cocaine Screen Neg (NEGATIVE) Urine Cannabinoids Screen Neg (NEGATIVE) Test 02/01/25 15:00 02/01/25 07:59 02/01/25 05:14 02/01/25 01:07 Thyroid Stimulating Hormone (TSH) 5.52 uIU/mL (0.55-4.78) Plasma/Serum Blood Alcohol < 3.0 mg/dL (<10) Lactic Acid Level 0.8 mmol/L (0.4-2.0) Creatine Kinase 111 U/L (46-171) Free Thyroxine (T4) Calculated 1.33 ng/dL (0.89-1.76) Total Triiodothyronine (TT3) 1.01 ng/mL (0.60-1.81) Magnesium Level 2.4 mg/dL (1.6-2.6) Test 01/31/25 21:43 01/31/25 18:39 Troponin I High Sensitivity 12 ng/L (</=54) B-Type Natriuretic Peptide 1740.83 pg/mL (0-100) Other Laboratory Tests 02/10/25 12:58 02/10/25 03:37 Brief Hx & Hospital Course: General Appearance: Cooperative. Well developed. Well nourished. Head Exam: Normal inspection Neck Exam: Normal inspection. Non-tender. Normal alignment Pulmonary/Respiratory: Chest non-tender, crackles on left side, no wheezing. Cardiovascular/Chest: Regular rate and rhythm. No murmurs. No JVD. ICD in place Peripheral Pulses: 2+ Radial (R). 2+ Radial (L). 2+ Pedal (R). 2+ Pedal (L) Abdominal Exam: Normal bowel sounds. Soft. normal abdomen, no visible veins, Nontender. No hepatosplenomegaly. No masses Lower extremities: 1+ BLE, pitting, right lower extremity redness, slight warmth and 2 x 2 ulceration,stable, eschar fallen off, measuring 2.2x2.5cm, morena tissue is hyperpigmented, no odor Neuro/Mental Status: A&O x4. Coherent. Thoughts/Psych: Normal thought pattern. Appropriate mood and affect. Good judgement and insight Skin Exam: Scar from CABG present in the center of the chest, 5 inches long. ICD can be seen superficially in the left chest wall near the axilla. Ulcer as above Nurse was present as exhibition organiser during the examination. Consults/Reason for consult This is a 54-year-old male with past medical history of CHF, CAD, diabetes mellitus type 2, hypertension, pulmonary hypertension who presented to the ER with the complaint of shortness of breaths and leg swelling since 1 week. The patient states that he had shortness of breath for the last 1 week but it got worse yesterday which is why he came to the ER. He has shortness of breath on lying down and feels better on sitting up. The patient also has bilateral leg swelling since 1 week. There is redness and tenderness of the right leg with an ulcer on the ramos. The patient also complains of hearing loss in the right ear since 2-3 days. Patient states that there was a popping sound after which he has lost his hearing ability in the right ear. He complains of ringing in the right ear. There is no fever, discharge, sore throat or congestion. During the course of his hospital stay, patient went down and lokelma was put on hold. The dose of lasix was adjusted to maintain optimum urine output and negative balance. Strict I&Os were kept. His lower extremity edema gradually reduced. His lung crackles also reduced over the course of the stay, but he was found to have bilateral pleural effusion with right medium sized pleural effusion and left small pleural effusion on CT chest. Telemetry was discontinued and patient was weaned off nasal cannula oxygen to room air, and he tolerated it well. Paracentesis was done on 02/09/2025 to drain the pleural effusion from right side. 1 L of pleural fluid was drained and sent for culture and cytology, with no complications. His IV vancomycin was discontinued and IV doxycycline was started. All medications and recommendations were thoroughly explained to the patient and he demonstrated understanding of the same. All questions were answered and concerns were addressed. Patient was discharged home in a stable condition and asked to follow-up in discharge Clinic within 2 weeks. Past medical history: CAD, CHF, diabetes mellitus, hypertension Past surgical history: CABG, ICD placement in September 2024 Smoking: Denies Alcohol: Denies Drug use: Denies Lives at home Allergies: No known allergies Patient seen and examined at bedside. Patient is alert and oriented to time, place person and responding to all questions. He is currently on 2 L oxygen by nasal cannula. Eyes: No Pain, No Vision change, No Conjunctivae inflammation, No Eyelid inflammation, No Redness ENT: Hearing loss in the right ear, No Ear pain, No Ear discharge, No Nose pain, No Nose discharge, No Nose congestion, No Mouth pain, No Mouth swelling, No Throat pain, No Throat swelling Cardiovascular: Shortness of breath, No Chest Pain, No Palpitations, No Orthopnea, No Paroxysmal No Dyspnea, No Edema, No Lt Headedness Respiratory: No Cough, No Wheezing, No Hemoptysis, No Pleuritic Pain, No Sputum Gastrointestinal: No Nausea, No Vomiting, No Abdominal Pain, No Diarrhea, No Constipation, No Melena, No Hematochezia Genitourinary: No Dysuria, No Frequency, No Incontinence, No Hematuria, No Retention Discharge plan -follow-up in discharge Clinic -Lasix 40 mg p.o. daily -Lokelma once daily Operations or Procedures 1.PROCEDURE(s): CXRP - CHEST PORTABLE REASON: sob ORDER NUMBER(s): [id number], ACCESSION NUMBER(s): [id number] IMPRESSION: Congestive pattern with small bilateral pleural effusions and mild pulmonary edema. 2.PROCEDURE(s): CXR1 - CHEST XRAY 1 VIEW REASON: shortness of breath, rales, history of CHF ORDER NUMBER(s): [id number], ACCESSION NUMBER(s): [id number] IMPRESSION: Unchanged pulmonary edema 3.PROCEDURE(s): CX2CT - CHEST WITHOUT CONTRAST REASON: ? loculated pleural effusion ORDER NUMBER(s): [id number], ACCESSION NUMBER(s): [id number] IMPRESSION: 1. Medium right and small left pleural effusions with partial collapse of bilateral lower lobes. 2. Fluid extending along the major fissures. 3. No definitive loculated component. 4. Third-spacing with body wall edema. 4.PROCEDURE(s): CXR1 - CHEST XRAY 1 VIEW REASON: S/P Thoracentesis ORDER NUMBER(s): [id number], ACCESSION NUMBER(s): [id number] IMPRESSION: 1. Slight interval improvement in bilateral pleural effusions and bibasilar pulmonary airspace disease. 2. Cardiomegaly. 5.PROCEDURE(s): EKG - ELECTROCARDIGRAM ORDER NUMBER(s): [id number], ACCESSION NUMBER(s): [id number] Sinus rhythm Borderline prolonged CA interval Left bundle branch block 6.Indication: Effusion Anesthetic: Lidocaine Site: R Posterior Axillary Drainage: Fluid Informed consent obtained: Yes Risks/benefits/alt described: Yes Notes Ultrasound-guided thoracentesis procedure note: Physician: Dr Lory Chery Date: 02/09/25 Time: 1814 Consent: Consent was obtained from patient's healthcare proxy prior to procedure. Indication, risks, and benefits were explained at length. Procedure summary: A timeout was performed and a chest x-ray was reviewed prior to procedure. The appropriate site was confirmed and marked. My hands were washed immediately prior to the procedure, I wore a surgical cap, mask with protective eyewear, sterile gown and sterile gloves throughout the procedure. The patient was prepped and draped in a sterile manner using chlorhexidine scrub after the appropriate level was percussed and confirmed by ultrasound. 1% lidocaine was used to anesthetize the skin, subcutaneous tissue, superior aspect of the rib periosteum and parietal pleura. A finder needle was then introduced over the superior aspect of the rib to locate the pleural fluid; whitish sanguinous fluid was aspirated. A 10 blade scalpel was used to michael the skin at the insertion site. Thoracentesis needle was then introduced through the skin incision into the pleural space using negative aspiration pressure. The thoracentesis catheter was then threaded without difficulty. 1000 mL's of serous colored fluid were removed without difficulty. The catheter was then removed. No immediate complications were noted during the procedure. A postprocedure chest x-ray is pending at the time of this note. The pleural fluid will be sent for cultures and cytology. Estimated blood loss is less than .5 mL's. Condition at Discharge: Fair Final Diagnosis/Problems List Acute on chronic HFrEF 25% Ischemic Cardiomyopathy Severe pulmonary hypertension Hypertensive urgency Acute hypoxic respiratory failure likely due to above present on admission, resolved Right pleural effusion s/p thoracentesis 1l fluid History of CAD status post CABG in September 2024 Dyslipidemia Right lower leg cellulitis,gram positive, complicated by ulcer Acute hypoxic respiratory failure Hyperkalemia Uncontrolled Diabetes mellitus type 2 with recent HbA1c of 6.7 Possible Mnire's disease FLAVIA on suspected CKD stage 3 Discharge Disposition: Home Discharge Instruct/Medications Diet: Consistent carbohydrate, Cardiac 2g Na,low cholest Activity: No Restrictions, As Tolerated Follow Up/Referral: follow up in in clinic follow up withh pcp Medications: lasix 40 mg po daily lokelma once daily Scheduled Aspirin (Aspirin), 81 MG PO DAILY Aspirin (Aspirin Adult Low Dose), 1 TAB PO DAILY, (Reported) Aspirin (Aspirin Low Dose), 81 MG PO DAILY Atorvastatin Calcium (Lipitor), 1 TAB PO QPM Atorvastatin Calcium (Atorvastatin Calcium), 40 MG PO HS Carvedilol (Coreg), 3.125 MG PO BID Carvedilol (Carvedilol), 1 TAB PO BID, (Reported) Carvedilol (Carvedilol), 6.25 MG PO BID Clindamycin Hcl (Clindamycin Hcl), 1 CAP PO TID Clopidogrel Bisulfate (Plavix), 1 TAB PO DAILY Clopidogrel Bisulfate (Clopidogrel), 1 TAB PO DAILY, (Reported) Clopidogrel Bisulfate (Clopidogrel), 75 MG PO DAILY Empagliflozin (Jardiance), 10 MG PO DAILY Furosemide (Furosemide), 40 MG PO DAILY Metformin Hydrochloride (Metformin Hcl Er), 500 MG PO BID Pantoprazole Sodium Sesquihydr (Pantoprazole Sodium), 40 MG PO DAILY@0600 Miscellaneous Medications Atorvastatin Calcium (Lipitor), (Reported) Discharge Statement: "Patient was advised to return to the ER or call 911 if any headaches, dizziness, shortness of breath, chest pain, abdominal pain, bleeding, fevers, or worsening of medical condition. Patient was counseled about treatment plan, medications, possible side effects, patientverbalized understanding. All questions were answered to the best of my ability. This discharge took greater then 30 minutes in planning, reviewing documentation, counseling the patient, and discussing with other team members." ASSESSMENT ASSESSMENT Assessment Acute on chronic HFrEF 25% Ischemic Cardiomyopathy Severe pulmonary hypertension Hypertensive urgency Acute hypoxic respiratory failure likely due to above present on admission, resolved Right pleural effusion s/p thoracentesis 1l fluid History of CAD status post CABG in September 2024 Dyslipidemia Right lower leg cellulitis,gram positive, complicated by ulcer Acute hypoxic respiratory failure Hyperkalemia Uncontrolled Diabetes mellitus type 2 with recent HbA1c of 6.7 Possible Mnire's disease FLAVIA on suspected CKD stage 3 ALYCE DIAMOND RESIDENT Feb 10, 2025 16:27
[2025-02-10] MEDS ORDERED: SODI10PA PO (19:30)
[2025-02-11 13:07] LABS: LD, Body Fluid 91.0 IU/L (.)
== END 2025-02-10 19:45 | disposition home or self-care (01) | DRG 133 ==
LOC: EDBD 18:13 → ER 18:13 → OVERFLOW 23:56 → CENTRAL 02-01 15:12 → TELE-CENTR 02-01 17:10 → CENTRAL 02-08 04:20
PROVIDERS: ADMIT Student in an Organized Health Care Education/Training Program; ATTEND Internal Medicine
PROC: 0W993ZZ Drainage of Right Pleural Cavity, Percutaneous Approach (ICD-10-PCS; principal; 2025-02-09)
DX: J96.01 Acute respiratory failure with hypoxia (principal); N17.0 Acute kidney failure with tubular necrosis; I50.23 Acute on chronic systolic (congestive) heart failure; I27.20 Pulmonary hypertension, unspecified; I16.0 Hypertensive urgency; L03.115 Cellulitis of right lower limb; J91.8 Pleural effusion in other conditions classified elsewhere; E87.5 Hyperkalemia; I13.0 Hypertensive heart and chronic kidney disease with heart failure and stage 1 through stage 4 chronic kidney disease, or unspecified chronic kidney disease; D64.9 Anemia, unspecified; E11.22 Type 2 diabetes mellitus with diabetic chronic kidney disease; L97.818 Non-pressure chronic ulcer of other part of right lower leg with other specified severity; I25.5 Ischemic cardiomyopathy; N18.31 Chronic kidney disease, stage 3a; I25.10 Atherosclerotic heart disease of native coronary artery without angina pectoris; I44.7 Left bundle-branch block, unspecified; I48.91 Unspecified atrial fibrillation; E78.5 Hyperlipidemia, unspecified; Z95.810 Presence of automatic (implantable) cardiac defibrillator; Z95.1 Presence of aortocoronary bypass graft; I25.2 Old myocardial infarction; Z86.16 Personal history of COVID-19
CPT/HCPCS: 32555; 36415; 71045; 71250; 80048; 80053; 80069; 80202; 80307; 80320; 81001; 82550; 82962; 83605; 83735; 83880; 84132; 84439; 84443; 84480; 84484; 85025; 85610; 85730; 87071; 87081; 87205; 89051; 93005; 96365; 96375; 99291; G0378; J1815; J2405

== ENCOUNTER 2025-05-03 10:34 | Inpatient (IN) | payer MEDICAID ==
[~2025-05-03] VITALS: Ht 165.1 cm; Wt 76.2 kg
[~2025-05-03 10:34] MED LIST changes: +ASPI-325 PO; +ASPI-628 PO; +ATOR-507; +ATOR20TA50 PO; +CARV3.1240 PO; +CARV6.2551 PO; +CLOP75TA70 PO; +EMPA1TAB PO; +FURO20TA3 PO; +METF-489 PO; +PANT40T PO; +SODI10PA PO
--- NOTE | 2025-05-03 10:46 | ED.PDOC ---
Musculoskeletal HPI Comments This is a 55 year old male presenting to the ED with chief complaint of lower leg swelling. Patient reports that he has been experiencing worsening lower leg swelling, discoloration, and wounds for the past few days, right worse than left. Patient relays that he visited his PCP today and was advised to come into the ED for further evaluation. Patient denies any numbness, fall injury, fever, chills, chest pain, or SOB. Chief Complaint: Extremity Swelling Time Seen by MD: 10:44 Reviewed Notes: Nurses Notes, Medications, Allergies Allergies: Coded Allergies: NO KNOWN ALLERGIES (Unverified , 01/02/25) Home Meds Reported Medications Furosemide (Furosemide) 20 Mg Tab, 1 TAB PO BID 05/03/25 Clopidogrel Bisulfate (CLOPIDOGREL) 75 Mg Tab, 1 TAB PO DAILY 05/03/25 Metformin Hydrochloride (Metformin Hcl) 500 Mg Tab, 1 TAB PO BID 05/03/25 Gabapentin (Gabapentin) 100 Mg Cap, 1 CAP PO 05/03/25 Furosemide (Furosemide) 40 Mg Tab, 1 TAB PO DAILY 05/03/25 Aspirin (Aspirin Low Dose) 81 Mg Tab, 1 TAB PO DAILY 05/03/25 Carvedilol (Carvedilol) 6.25 Mg Tab, 1 TAB PO BID 05/03/25 Empagliflozin (Jardiance) 10 Mg Tab, 1 TAB PO DAILY 05/03/25 Polyethylene Glycol 3350 (Eql Clearlax) 17 Gm/Scoop Pow 05/03/25 Docusate Sodium (Docusate Sodium) 100 Mg Cap, 1 CAP PO QHSP PRN for FOR CONSTIPATION 05/03/25 Information Source: Patient, Relative (Child) Mode of Arrival: Ambulatory Location: Bilateral Extremity Location: Leg Timing: Days Prehospital treatment: None Severity: Moderate Able to Move Extremity: Yes Bear Weight: Fully Pain: Moderate Mechanism: Spontaneous Circumstances: Spontaneous Onset of Symptoms: Spontaneous Symptoms: Swelling, Pain, Erythema DVT Risk Factors: CHF Past Medical History PAST MEDICAL HISTORY: CAD, CHF, CKF, DM, HTN, TN Surgical History: CABG, Pacemaker, PTCA Family History Family History: Reviewed,noncontributory to illness, No family hx of Cancer, No family hx of DM, No family hx of Heart edel, No family hx of HTN, No family hx ofKidney edel, No family hx of Liver edel, No family hx of Lung edel, No family hx of Stroke Social History Smoker: Non-Smoker Alcohol: Denies ETOH Use Drugs: Denies Drug Use Lives In: Home Constitutional: denies: chills, diaphoresis, fatigue, fever, malaise, sweats, weakness, others EENTM: denies: blurred vision, double vision, ear bleeding, ear discharge, ear drainage, ear pain, ear ringing, eye pain, eye redness, hearing loss, mouth pain, mouth swelling, nasal discharge, nose bleeding, nose congestion, nose pain, photophobia, tearing, throat pain, throat swelling, voice changes, others Respiratory: denies: cough, hemoptysis, orthopnea, SOB at rest, shortness of breath, SOB with excertion, stridor, wheezing, others Cardiovascular: reports: edema; denies: chest pain, dizzy spells, diaphoresis, Dyspnea on exertion, irregular heart beat, left arm pain, lightheadedness, palpitations, PND, syncope, others Gastrointestinal: denies: abdomen distended, abdominal pain, blood streaked bowels, constipated, diarrhea, dysphagia, difficulty swallowing, hematemesis, melena, nausea, poor appetite, poor fluid intake, rectal bleeding, rectal pain, vomiting, others Genitourinary: denies: burning, dysuria, flank pain, frequency, hematuria, incontinence, penile discharge, penile sore, pain, testicle pain, testicle swelling, urgency, others Neurological: denies: dizziness, fainting, headache, left sided numbness, left sided weakness, numbness, paresthesia, pre-existing deficit, right sided numbness, right sided weakness, seizure, speech problems, tingling, tremors, weakness, others Musculoskeletal: denies: back pain, gout, joint pain, joint swelling, muscle pain, muscle stiffness, neck pain, others Integumetry: reports: wounds; denies: bruises, change in color, change in hair/nails, dryness, laceration, lesions, lumps, rash, others Allergic/Immunocompromised: denies: Difficulty Healing, Frequent Infections, Hives, Itching, others Hematologic/Lymphatic: denies: anemia, blood clots, easy bleeding, easy br uising, swollen glands, others Endocrine: denies: excessive hunger, excessive sweating, excessive thirst, excessive urination, flushing, intolerance to cold, intolerance to heat, unexplained weight gain, unexplained weight loss, others Psychiatric: denies: anxiety, bipolar disorder, depression, hopeless, panic disorder, schizophrenia, sleepless, suicidal, others All Other Systems: Reviewed and Negative Physical Exam General Appearance: Moderate Distress, Normal HEENT: Normal ENT Inspection, Pharynx Normal, TMs Normal Neck: Full Range of Motion, Non-Tender, Normal, Normal Inspection Respiratory: Chest Non-Tender, No Accessory Muscle Use, Rhonchi Cardiovascular: No Edema, No JVD, No Murmur, No Gallop, Normal Peripheral Pulses, Regular Rate/Rhythm Breast Exam: Deferred Gastrointestinal: No Organomegaly, Non Tender, No Pulsatile Mass, Normal Bowel Sounds, Soft Genitalia: Deferred Pelvic: Deferred Rectal: Deferred Extremities: No calf tenderness, Swelling (Bilateral lower extremity right greater than the left) Musculoskeletal : Apperance: Normal Neurologic: Alert, velocity shooter II-XII nml as Tested, No Motor Deficits, Normal Affect, Normal Mood, No Sensory Deficits Cerebellar Function: NOT DONE Reflexes: NOT DONE Skin: Dry, Normal Color, Warm, Wounds (Bilateral lower extremity) Peripheral Pulses: 3+ Radial (R), 3+ Radial (L) Lymphatic: No Adenopathy Was a procedure done? Was a procedure done?: No Differential Diagnosis EXT Differential Diagnosis: Cellulitis, Sprain, Strain X-Ray, Labs, Meds, VS Vital Signs Date Time Temp Pulse Resp B/P (MAP) Pulse Ox O2 Delivery O2 Flow Rate FiO2 05/03/25 10:37 98.0 73 16 150/91 94 98.0 Lab Test 05/03/25 12:40 05/03/25 11:10 Range/Units Urine Color Light-yellow Yellow Urine Clarity Clear Clear Urine pH 5.5 5.0-9.0 Urine Specific Griffin 1.010 1.001-1.035 Urine Protein 1+ H Negative Urine Ketones Negative Negative Urine Blood Trace H Negative /uL Urine Nitrite Negative Negative Urine Bilirubin Negative Negative Urine Urobilinogen Normal Negative mg/dL Urine Leukocyte Esterase Negative Negative /uL Urine RBC 5 0 - 3 /hpf Urine Microscopic WBC < 1 0-3 /HPF Urine Squamous Epithelial Cells None seen <5 /hpf Urine Bacteria None seen None Seen /hpf Urine Glucose 3+ H Normal mg/dL Urine Opiates Screen Neg NEGATIVE Urine Fentanyl Screen Neg NEGATIVE Urine Barbiturates Screen Neg NEGATIVE Urine Phencyclidine Screen Neg NEGATIVE Urine Amphetamines Screen Neg NEGATIVE Urine Benzodiazepines Screen Neg NEGATIVE Urine Cocaine Screen Neg NEGATIVE Urine Cannabinoids Screen Neg NEGATIVE White Blood Count 5.1 4.4-10.8 10^3/uL Red Blood Count 3.51 L 4.5-5.90 10^6/uL Hemoglobin 9.9 L 13.5-17.5 g/dL Hematocrit 30.6 L 41.0-53.0 % Mean Corpuscular Volume 87.3 80.0-100.0 fL Mean Corpuscular Hemoglobin 28.3 28.0-32.0 pg Mean Corpuscular Hemoglobin Concent 32.4 32.0-36.0 g/dL Red Cell Distribution Width 15.9 H 11.8-14.3 % Platelet Count 204 140-450 10^3/uL Mean Platelet Volume 7.8 6.9-10.8 fL Neutrophils (%) (Auto) 58.3 37.0-80.0 % Lymphocytes (%) (Auto) 26.0 10.0-50.0 % Monocytes (%) (Auto) 8.8 0.0-12.0 % Eosinophils (%) (Auto) 5.9 0.0-7.0 % Basophils (%) (Auto) 1.0 0.0-2.0 % Neutrophils # (Auto) 3.0 1.6-8.6 10 ^3/uL Lymphocytes # (Auto) 1.3 0.4-5.4 10 ^3/uL Monocytes # (Auto) 0.5 0-1.3 10 ^3/uL Eosinophils # (Auto) 0.3 0-0.8 10 ^3/uL Basophils # (Auto) 0.1 0-0.2 10 ^3/uL Nucleated Red Blood Cells 0.1 % Sodium Level 141 136-145 mmol/L Potassium Level 4.6 3.5-5.1 mmol/L Chloride Level 108 H 98-107 mmol/L Carbon Dioxide Level 23 20-31 mmol/L Anion Gap 10 5-15 Blood Urea Nitrogen 40 H 9-23 mg/dL Creatinine 1.90 H 0.700-1.30 mg/dL Glomerular Filtration Rate Calc 41 >90 mL/min BUN/Creatinine Ratio 21.1 H 10.0-20.0 Serum Glucose 120 H 74-106 mg/dL Hemoglobin A1c 7.2 H <5.7 % A1C Lactic Acid Level 1.0 0.4-2.0 mmol/L Calcium Level 8.6 L 8.7-10.4 mg/dL Troponin I High Sensitivity 12 </=54 ng/L B-Type Natriuretic Peptide 1929.95 0-100 pg/mL Current Medications Medications (Trade) Dose Ordered Sig/Shakeel Route Start Time Stop Time Status Last Admin Piperacillin Sod/ Tazobactam Sod 100 ml @ 100 mls/hr ONCE ONCE IV 05/03/25 11:00 05/03/25 11:59 DC 05/03/25 12:29 Patient alert. BNP elevated. Was given Lasix. Cardiac marker within normal limits. Lactic acid within normal limits. WBC within normal limits. Spoke with primary care physician. Explained to the patient. Continue monitoring. Time of 1ST Reevaluation: 11:44 Reevaluation 1ST: Unchanged Patient Education/Counseling: Diagnosis, Treatment Family Education/Counseling: Diagnosis, Treatment Sepsis Sepsis Reasesment Focused Exam Orders: Laboratory Tests 05/03/25 11:10: Lactic Acid Level 1.0 Departure 1 Departure Time of Disposition: 17:38 Impression: Primary Impression: CHF exacerbation Qualified Codes: I50.43 - Acute on chronic combined systolic (congestive) and diastolic (congestive) heart failure Additional Impression: Peripheral edema Disposition: ADMITTED INPATIENT Admit to: Med Surg Condition: Guarded Critical Care Note Critical Care Time?: Yes (90 min-critical care time only) Stability Stability form required: No Heart Score Heart Score: Heart Score Response (Comments) Value History Highly Suspicious 2 EKG Normal 0 Age 45-64 1 Risk Factors >3 or Hx ASHD 2 Troponin Normal limit 0 Total 5 I personally scribed for LUZ MARIA JOHNSON MD ([email or web address]) on 05/03/25 at 10:46. Electronically submitted by Kj Kitchen ([email or web address]). LUZ MARIA JOHNSON MD May 03, 2025 10:46
[2025-05-03] MEDS: SODIUM CHLORIDE 0.9% 1,000 ML IV ONE (11:00)
--- NOTE | 2025-05-03 11:51 | DVH ---
EXAM: XY CHEST PORTABLE Indication: sob Technique: Single frontal view of the chest was obtained Comparison: XY CHEST XRAY 1 VIEW on DOS: 02/10/25, CT CHEST WITHOUT CONTRAST on DOS: 02/07/25, XY CHEST XRAY 1 VIEW on DOS: 02/06/25, XY CHEST PORTABLE on DOS: 01/31/25, XY CHEST TWO VIEWS ROUTINE on DOS: 01/04/25 FINDINGS: Lines and Tubes: Cardiac pacemaker projects over left chest wall. Lungs: Moderate right pleural effusion and right basilar opacity. No pneumothorax. Cardiomediastinal contours: Cardiomegaly Bones: No acute osseous abnormality. IMPRESSION: Moderate right pleural effusion and right basilar opacity.
[2025-05-03 11:58] LABS: Hematocrit 30.6 % (41.0-53.0); Hemoglobin 9.9 g/dL (13.5-17.5); Mean Corpuscular Hemoglobin 28.3 pg (28.0-32.0); Mean Corpuscular Volume 87.3 fL (80.0-100.0); Nucleated Red Blood Cells % 0.1 %
[2025-05-03 12:07] LABS: Anion Gap 10 (5-15); Carbon Dioxide 23 mmol/L (20-31); Potassium 4.6 mmol/L (3.5-5.1); Sodium 141 mmol/L (136-145)
[2025-05-03 12:10] LABS: Calcium 8.6 mg/dL (8.7-10.4); Chloride 108 mmol/L (98-107)
[2025-05-03 12:13] LABS: BUN/Creatinine Ratio 21.1 (10.0-20.0); Blood Urea Nitrogen 40 mg/dL (9-23); Glucose 120 mg/dL (74-106)
[2025-05-03] MEDS: PIPERACILLIN-TAZOB 3.375GM 100 ML IV ONE (12:29)
[2025-05-03 13:03] LABS: Urine Protein, UAD 1+ (Negative)
[2025-05-03 13:55] LABS: Amphetamine Screen, Urine Neg (NEGATIVE); Barbiturate Scree,Urine Neg (NEGATIVE); Benzodiazephine Screen, Urine Neg (NEGATIVE); Cannabinoid Screen, Urine Neg (NEGATIVE); Cocaine Screen, Urine Neg (NEGATIVE); Opiate Scree,Urine Neg (NEGATIVE); Phencyclidine Screen, Urine Neg (NEGATIVE)
--- NOTE | 2025-05-03 14:05 | DVH ---
EXAM: CT LOWER EXTREMITY NON JOINT RIGH INDICATION: RULE OUT ABCESS TECHNIQUE: Axial images of right lower extremity without contrast have been obtained along with coronal and sagittal reformatted images. All CT scans at this facility use dose modulation, iterative reconstruction, and/or weight based dosing when appropriate to reduce radiation dose to as low as reasonably achievable. COMPARISON: CT CT L FOOT WO CONTRAST on DOS: 01/03/25 FINDINGS: BONES: No CT evidence of an acute fracture or aggressive osseous lesion. Vascular calcifications. MUSCLES: Extensive surrounding subcutaneous adipose tissue edema. JOINT SPACES: Trace knee joint effusion. TENDONS/LIGAMENTS: Intact. OTHER: No definitive drainable measurable fluid collection allowing for limitation without intravenous contrast. No soft tissue emphysema. IMPRESSION: 1. No definitive drainable measurable fluid collection allowing for limitation on CT analysis. 2. Extensive surrounding subcutaneous adipose tissue edema.
--- NOTE | 2025-05-03 14:05 | DVH ---
Bilateral Chest Sonogram Date: 05/03/2025 01:26 PM Clinical history: RIGHT PLEURAL EFFUSION, POSSIBLE THORACENTESIS Technique: Grayscale sonographic images of bilateral pleural cavity obtained. Images submitted: 8 Findings: Limited sonographic evaluation of the right and left chest was performed to localize and anup fluid for thoracentesis. There is a moderate right and small left pleural effusion. IMPRESSION: 1. Moderate right and small left pleural effusion. END IMPRESSION:
--- NOTE | 2025-05-03 14:39 | DVH ---
EXAM: CT LEFT LOWER EXTREMITY W/O CON INDICATION: R/O ABCESS TECHNIQUE: Axial images of left lower extremity without contrast have been obtained along with coronal and sagittal reformatted images. All CT scans at this facility use dose modulation, iterative reconstruction, and/or weight based dosing when appropriate to reduce radiation dose to as low as reasonably achievable. COMPARISON: CT LOWER EXTREMITY NON JOINT RIGH on DOS: 05/03/25 FINDINGS: BONES: No CT evidence of an acute fracture or aggressive osseous lesion. Vascular calcifications. MUSCLES: Surrounding subcutaneous adipose tissue edema. JOINT SPACES: Trace knee joint fluid. TENDONS/LIGAMENTS: Intact. OTHER: No drainable fluid collection identified. Allowing for limitation, no CT evidence of definitive drainable fluid collection/abscess. IMPRESSION: 1. No CT evidence of an acute fracture. 2. No drainable fluid collection identified.
[2025-05-03] MEDS: DOXYCYCLINE 100MG/100ML 100 ML IV SCH (14:53)
[2025-05-03] MEDS ORDERED: EMPA1TAB PO (15:06)
[2025-05-03] MEDS ORDERED: CLOP75TA70 PO (15:06)
[2025-05-03] MEDS ORDERED: GAB100C PO (15:06)
[2025-05-03] MEDS ORDERED: ASPI-325 PO (15:06)
[2025-05-03] MEDS ORDERED: METF-370 PO (15:06)
[2025-05-03] MEDS ORDERED: [UNRECOGNIZED DRUG - CODE] (15:06)
[2025-05-03] MEDS ORDERED: CARV6.2551 PO (15:06)
[2025-05-03] MEDS ORDERED: FURO20TA4 PO (15:06)
[2025-05-03] MEDS ORDERED: DOCU-265 PO (15:06)
[2025-05-03] MEDS ORDERED: FURO40TA4 PO (15:06)
[2025-05-03] MEDS ORDERED: DEXTROSE (50%) 50ML SYRG IV PRN (15:15)
[2025-05-03 15:56] VITALS: BP 168/87; PULSE 69; RESP 14; TEMP 98.1; O2SAT 97
[2025-05-03] MEDS: FUROSEMIDE 40 MG/4 ML VIAL IV SCH (16:01)
[2025-05-03 16:35] VITALS: BP 167/88; PULSE 68; RESP 16; TEMP 97.9; O2SAT 94
--- NOTE | 2025-05-03 16:55 | DVHHP2 ---
History of Present Illness History of Present Illness This is a 54-year-old male with past medical history of heart failure, coronary artery disease status post CABG and PTCA, diabetes, hypertension, pulmonary hypertension, and ICD placement. He presents with a month of progressive bilateral leg swelling, multiple non-healing wounds on the legs, and worsening shortness of breath. He describes orthopnea and intermittent nocturnal dyspnea. He denies fever, trauma, and denies illicit drug use. Symptoms have been chronic but worsened in the last week. He reports no chest pain. He states his wounds began as areas of irritation where he scratched. He came to the ED due to concern that the wounds are not healing and swelling is worsening. ED evaluation showed BP [id number], SpO2 94% on room air. Labs: Hgb 9.9, BNP in , creatinine 1.9 (similar to baseline, GFR 41). Urinalysis with 1+ protein. Toxicology negative. CXR showed right pleural effusion. Chest ultrasound showed moderate right and small left pleural effusion. CT of both legs showed no abscess or fracture. He was admitted for management of possible cellulitis, fluid overload, and chronic non-healing wounds. PMHx: Heart failure with reduced EF (EF 25%), CAD s/p CABG and PTCA, diabetes mellitus type 2, hypertension, pulmonary hypertension, chronic kidney disease (baseline Cr ~1.9). PSHx: CABG, PTCA, ICD placement. Social History: Denies tobacco, alcohol, and illicit drug use. Allergies: No known drug allergies ROS: General: Denies fever, chills. HEENT: Denies sore throat, vision changes. Cardiac: Reports orthopnea. Denies chest pain or palpitations. Pulmonary: Reports shortness of breath. No wheezing. GI: Denies abdominal pain, nausea, vomiting. : Denies dysuria or hematuria. Musculoskeletal: Reports leg swelling. Skin: Multiple non-healing wounds on legs. No rash elsewhere. Neuro: Denies focal weakness or numbness. Mental status baseline. Review of Systems Allergies: Coded Allergies: NO KNOWN ALLERGIES (Unverified , 01/02/25) Medications Current Medications Medications Dose Ordered Sig/Shakeel Route Start Time Stop Time Status Last Admin Dose Admin Enoxaparin Sodium 40 mg DAILY SC 05/04/25 10:00 Cefepime HCl 50 ml @ 12.5 mls/hr Q12HR IV 05/03/25 22:00 Doxycycline Hyclate 100 ml @ 50 mls/hr Q12H IV 05/03/25 13:00 05/03/25 14:53 50 MLS/HR Furosemide 40 mg DAILY IV 05/03/25 13:00 05/03/25 16:01 40 MG Diagnostic Test (Pha) 1 strip Q6HR 05/03/25 18:00 Insulin Human Regular Q6HR SC 05/03/25 18:00 Dextrose 50 ml UD PRN IV 05/03/25 15:15 Clopidogrel Bisulfate 75 mg DAILY PO 05/04/25 10:00 Aspirin 81 mg DAILY PO 05/04/25 10:00 Nifedipine 90 mg DAILY PO 05/03/25 16:15 05/03/25 16:15 90 MG Exam Vital Signs Vital Signs Date Time Temp Pulse Resp B/P (MAP) Pulse Ox O2 Delivery O2 Flow Rate FiO2 05/03/25 16:35 97.9 68 16 167/88 (114) 94 97.9 Exam General: Thin-appearing male, not in acute distress. Heart: Regular rate and rhythm. No murmurs appreciated. Lungs: Mild bibasilar crackles. No wheezing. Abdomen: Soft, nontender, nondistended. Extremities: 1+ pitting edema bilaterally. Skin: Multiple superficial excoriations and non-healing wounds scattered over both legs, no purulence, no fluctuance. Neuro: Alert and oriented, no focal deficits. Labs/Xrays Labs Test 05/03/25 12:40 05/03/25 11:10 Range/Units Urine Color Light-yellow Yellow Urine Clarity Clear Clear Urine pH 5.5 5.0-9.0 Urine Specific Rinard 1.010 1.001-1.035 Urine Protein 1+ H Negative Urine Ketones Negative Negative Urine Blood Trace H Negative /uL Urine Nitrite Negative Negative Urine Bilirubin Negative Negative Urine Urobilinogen Normal Negative mg/dL Urine Leukocyte Esterase Negative Negative /uL Urine RBC 5 0 - 3 /hpf Urine Microscopic WBC < 1 0-3 /HPF Urine Squamous Epithelial Cells None seen <5 /hpf Urine Bacteria None seen None Seen /hpf Urine Glucose 3+ H Normal mg/dL Urine Opiates Screen Neg NEGATIVE Urine Fentanyl Screen Neg NEGATIVE Urine Barbiturates Screen Neg NEGATIVE Urine Phencyclidine Screen Neg NEGATIVE Urine Amphetamines Screen Neg NEGATIVE Urine Benzodiazepines Screen Neg NEGATIVE Urine Cocaine Screen Neg NEGATIVE Urine Cannabinoids Screen Neg NEGATIVE White Blood Count 5.1 4.4-10.8 10^3/uL Red Blood Count 3.51 L 4.5-5.90 10^6/uL Hemoglobin 9.9 L 13.5-17.5 g/dL Hematocrit 30.6 L 41.0-53.0 % Mean Corpuscular Volume 87.3 80.0-100.0 fL Mean Corpuscular Hemoglobin 28.3 28.0-32.0 pg Mean Corpuscular Hemoglobin Concent 32.4 32.0-36.0 g/dL Red Cell Distribution Width 15.9 H 11.8-14.3 % Platelet Count 204 140-450 10^3/uL Mean Platelet Volume 7.8 6.9-10.8 fL Neutrophils (%) (Auto) 58.3 37.0-80.0 % Lymphocytes (%) (Auto) 26.0 10.0-50.0 % Monocytes (%) (Auto) 8.8 0.0-12.0 % Eosinophils (%) (Auto) 5.9 0.0-7.0 % Basophils (%) (Auto) 1.0 0.0-2.0 % Neutrophils # (Auto) 3.0 1.6-8.6 10 ^3/uL Lymphocytes # (Auto) 1.3 0.4-5.4 10 ^3/uL Monocytes # (Auto) 0.5 0-1.3 10 ^3/uL Eosinophils # (Auto) 0.3 0-0.8 10 ^3/uL Basophils # (Auto) 0.1 0-0.2 10 ^3/uL Nucleated Red Blood Cells 0.1 % Sodium Level 141 136-145 mmol/L Potassium Level 4.6 3.5-5.1 mmol/L Chloride Level 108 H 98-107 mmol/L Carbon Dioxide Level 23 20-31 mmol/L Anion Gap 10 5-15 Blood Urea Nitrogen 40 H 9-23 mg/dL Creatinine 1.90 H 0.700-1.30 mg/dL Glomerular Filtration Rate Calc 41 >90 mL/min BUN/Creatinine Ratio 21.1 H 10.0-20.0 Serum Glucose 120 H 74-106 mg/dL Hemoglobin A1c 7.2 H <5.7 % A1C Lactic Acid Level 1.0 0.4-2.0 mmol/L Calcium Level 8.6 L 8.7-10.4 mg/dL Troponin I High Sensitivity 12 </=54 ng/L B-Type Natriuretic Peptide 1929.95 0-100 pg/mL SEPSIS Sepsis Screen Date sepsis recognized/suspect: May 03, 2025 Time Sepsis recognized/suspect: 104 Recent Procedure: No On Antibiotic Therapy: No Respiratory Rate >20: No Heart Rate >90: No Temp<36 C (96.8 F) or >38.3 C: No SBP <90 or MAP <65 mmHG: Yes New Acute Mental Status Change: No Is the patient on CPAP, BIPAP,: No Physician Orders Chest Portable (05/03/25 10:48) Blood Culture (05/03/25 10:48) Admit (05/03/25 12:58) Code Status (05/03/25 12:58) Vital Signs .PER UNIT PROTOCOL (05/03/25 12:58) Review Orders With Adm.Md (05/03/25 12:58) Consistent Carb([facility])Diabetes (05/03/25 Lunch) Notify Md Of Changes From Base (05/03/25 12:58) Advance Directive (05/03/25 12:58) Patient Condition (05/03/25 12:58) Allergies (05/03/25 12:58) Enoxaparin Sodium (Lovenox) (05/04/25 10:00) Oxygen By Nasal Cannula (05/03/25 12:58) Stat Ekg For Chest Pain (05/03/25 12:58) Notify Md Of Changes From Base (05/03/25 12:58) Valve Machine Operator For 24 Hours (05/03/25 12:58) Emergency Dysrhythmia Protocol (05/03/25 12:58) Rhythm Strips Once Every Shift (05/03/25 12:58) Left Lower Extremity W/O Con (05/03/25 12:58) Cefepime 1gm/50ml (Maxipime 1gm/50ml) (05/03/25 22:00) Doxycycline 100mg/100ml (Vibramycin) (05/03/25 13:00) Chest Ultrasound (05/03/25 12:58) Furosemide Injection (Lasix Injection) (05/03/25 13:00) Lower Extremity Non Joint Righ (05/03/25 12:58) Glucose Blood (Accu-Chek Comfort Curve T (05/03/25 18:00) Insulin R (Human) (Insulin R) (05/03/25 18:00) Dextrose 50% Syringe (05/03/25 15:15) Clopidogrel Bisulfate (Plavix) (05/04/25 10:00) Thoracentesis (05/04/25 08:00) Aspirin Enteric Coated Tablet (Ecotrin E (05/04/25 10:00) * Wound Consult (05/03/25 ) Wound Culture W/ Gs (05/03/25 15:12) Nifedipine Er (Procardia Xl (Time-Releas (05/03/25 16:15) Vital Signs Date Time Temp Pulse Resp B/P (MAP) Pulse Ox O2 Delivery O2 Flow Rate FiO2 05/03/25 16:35 97.9 68 16 167/88 (114) 94 97.9 05/03/25 16:15 168/87 05/03/25 16:01 168/87 05/03/25 15:56 98.1 69 14 168/87 (114) 97 98.1 05/03/25 10:37 98.0 73 16 150/91 94 98.0 Laboratory Tests Test 05/03/25 11:10 Lactic Acid Level 1.0 mmol/L (0.4-2.0) White Blood Count 5.1 10^3/uL (4.4-10.8) Medications Medications Dose Ordered Sig/Shakeel Route Start Time Stop Time Status Last Admin Dose Admin Doxycycline Hyclate 100 ml @ 50 mls/hr Q12H IV 05/03/25 13:00 05/03/25 14:53 50 MLS/HR Furosemide 40 mg DAILY IV 05/03/25 13:00 05/03/25 16:01 40 MG Nifedipine 90 mg DAILY PO 05/03/25 16:15 05/03/25 16:15 90 MG Piperacillin Sod/ Tazobactam Sod 100 ml @ 100 mls/hr ONCE ONCE IV 05/03/25 11:00 05/03/25 11:59 DC 05/03/25 12:29 100 MLS/HR Assessment/Plan Assessment/Plan # Cellulitis Multiple excoriated wounds with non-healing appearance; no abscess on CT. Started on cefepime and doxycycline. Continue antibiotics, reassess in 2448 hours, and obtain wound care consult. # Acute on Chronic systolic heart failure The patient has known HFrEF with EF 25% and current volume overload supported by elevated BNP and bilateral effusions. He likely has decompensation due to fluid retention. Continue IV furosemide, strict I/O, daily weights, sodium restriction, optimize GDMT as tolerated during admission. # Pleural effusion Moderate right and small left effusion likely due to heart failure exacerbation. Diuresis and thoracentesis oreded # Coronary artery disease s/p CABG and PTCA Stable without active ischemia. Continue aspirin and clopidogrel # Pulmonary hypertension Chronic condition with elevation in RVSP on prior echo. No acute right-heart failure signs. Continue supportive care and monitor respiratory status. # Chronic kidney disease Creatinine 1.9 consistent with baseline, likely CKD stage 3. Avoid nephrotoxins. Renally adjust antibiotics and medications. Monitor BMP. # Type 2 diabetes mellitus ISS # Hypertension Elevated BP on arrival. Continue nifedipine Adjust as indicated once volume status improves. # Non-healing lower-extremity wounds Likely related to chronic edema and excoriation. No abscess on imaging. Continue wound care, optimize perfusion with HF management. # Rule out lower-extremity DVT Doppler ultrasound ordered. Continue monitoring. Case discussed with Dr Doll Full code Plan discussed with: Patient, Other (rn) My Orders Orders - ANGIE URIBE RESIDENT Procedure Category Date Status Time Admit ADMIT 05/03/25 Transmitted 12:58 Code Status CODE 05/03/25 Transmitted 12:58 Vital Signs [facility] 05/03/25 In Process 12:58 Review Orders With MIKEY 05/03/25 In Process Adm. 12:58 Consistent DIET 05/03/25 Transmitted Carb(Ccho)Diabetes Lunch Notify Of Changes [facility] 05/03/25 In Process From Base 12:58 Advance Directive MIKEY 05/03/25 In Process 12:58 Patient Condition ORDERS 05/03/25 Transmitted 12:58 Allergies MIKEY 05/03/25 In Process 12:58 Enoxaparin Sodium PHA 05/04/25 In Process (Lovenox) 10:00 Oxygen By Nasal RT 05/03/25 Transmitted Cannula 12:58 Stat Ekg For Chest MIKEY 05/03/25 In Process Pain 12:58 Notify Of Changes [facility] 05/03/25 In Process From Base 12:58 Valve Machine Operator For MIKEY 05/03/25 In Process 24 Hours 12:58 Emergency Dysrhythmia [facility] 05/03/25 In Process Protocol 12:58 Rhythm Strips Once MIKEY 05/03/25 In Process Every Shift 12:[address] 05/03/25 Resulted W/O Con 12:58 Cefepime 1gm/50ml PHA 05/03/25 In Process (Maxipime 1gm/50ml) 22:00 Doxycycline PHA 05/03/25 In Process 100mg/100ml 13:00 Chest Ultrasound US 05/03/25 Resulted 12:58 Furosemide Injection PHA 05/03/25 In Process (Lasix Injection) 13:[address] 05/03/25 Resulted Joint Righ 12:58 Glucose Blood PHA 05/03/25 In Process (Accu-Chek Comfort 18:00 Insulin R (Human) PHA 05/03/25 In Process (Insulin R) 18:00 Dextrose 50% Syringe PHA 05/03/25 In Process 15:15 Clopidogrel Bisulfate PHA 05/04/25 In Process (Plavix) 10:00 Thoracentesis US 05/04/25 Logged 08:00 Aspirin Enteric PHA 05/04/25 In Process Coated Tablet 10:00 * Wound Consult CONS 05/03/25 Transmitted Wound Culture W/ Gs EUGENIA 05/03/25 Logged 15:12 Nifedipine Er PHA 05/03/25 In Process (Procardia Xl 16:15 Date of Service: May 03, 2025 Billing Provider: CARMEN DOLL MD Common Visit Codes: [id number] INP/OBS CARE (HIGH) ANGIE URIBE RESIDENT May 03, 2025 16:55
[2025-05-03] MEDS: InsuLIN REG 1unit/0.01ml Soln (100units/ml) SC SCH (18:00)
[2025-05-03] MEDS: ACCU-CHEK COMFORT CURVE STRIP VI SCH (18:21)
[2025-05-03 20:00] VITALS: PULSE 81; RESP 18; O2SAT 97
--- NOTE | 2025-05-03 20:56 | DVH ---
CLINICAL HISTORY: rule out dvt TECHNIQUE: Color and duplex doppler imagine of the bilateral lower extremity veins was performed. Vessel compression and augmentation if possible was also performed. COMPARISON: US BILAT LOWER DVT on DOS: 01/03/25 FINDINGS: Right Lower Extremity: Right common femoral vein: Normal compressibility and flow. Right superficial femoral vein: Normal compressibility and flow. Right popliteal vein: Normal compressibility and flow. There is a nonspecific 7 mm lymph node. Left Lower Extremity: Left common femoral vein: Normal compressibility and flow. Left superficial femoral vein: Normal compressibility and flow. Left popliteal vein: Normal compressibility and flow. There is a nonspecific 7 mm lymph node. IMPRESSION: No sonographic evidence for DVT in the bilateral lower extremities. Bilateral nonspecific 7 mm groin lymph nodes.
[2025-05-03 21:00] VITALS: BP 121/53; PULSE 72; RESP 2; TEMP 97.7; O2SAT 87
[2025-05-03] MEDS: CEFEPIME 1GM/50ML 50 ML IV SCH (21:41)
[2025-05-04] VITALS (9 sets, daily range): BP systolic 103–128; BP diastolic 53–73; PULSE 68–77; RESP 17–20; TEMP 97.3–98.5; O2SAT 92–99
[2025-05-04 08:54] LABS: Hematocrit 30.3 % (41.0-53.0); Hemoglobin 10.0 g/dL (13.5-17.5); Mean Corpuscular Hemoglobin 28.1 pg (28.0-32.0); Mean Corpuscular Volume 85.4 fL (80.0-100.0); Nucleated Red Blood Cells % 0.1 %
[2025-05-04 09:12] LABS: INR 1.09 (0.9-1.15); Partial Thromboplastin Time 30.5 SEC (24.5-34.5); Prothrombin Time 11.5 sec (9.3-11.8)
[2025-05-04 09:17] LABS: Magnesium 2.1 mg/dL (1.6-2.6); Triglycerides 58.0 mg/dL (< 150)
[2025-05-04 09:18] LABS: Alanine Aminotransferase 39 U/L (7-40); Albumin 3.5 g/dL (3.2-4.8); Anion Gap 12 (5-15); BUN/Creatinine Ratio 22.7 (10.0-20.0); Carbon Dioxide 25 mmol/L (20-31); Glucose 86 mg/dL (74-106); Potassium 4.3 mmol/L (3.5-5.1); Total Protein 6.3 g/dL (5.7-8.2)
[2025-05-04 09:19] LABS: Bilirubin, Total 0.6 mg/dL (0.2-1.0); Cholesterol 101.0 mg/dL (< 200)
[2025-05-04 09:22] LABS: Alkaline Phosphatase 276 U/L (46-116); Blood Urea Nitrogen 47 mg/dL (9-23); Calcium 8.6 mg/dL (8.7-10.4); Chloride 108 mmol/L (98-107); HDL Cholesterol 39.0 mg/dL (40-59); Sodium 145 mmol/L (136-145)
[2025-05-04] MEDS: ASPirin-EC 81 mg tab PO SCH (09:28)
[2025-05-04] MEDS: ENOXAPARIN SOD 40 MG/0.4 ML SYRINGE SC SCH (09:28)
[2025-05-04] MEDS: CLOPIDOGREL BISULFATE 75 MG TAB PO SCH (09:28)
[2025-05-04] MEDS: CARVEDILOL 3.125 MG TAB PO SCH (10:33)
[2025-05-04] MEDS: HYDROcodone-ACET 10/325MG TAB PO PRN (12:29)
--- NOTE | 2025-05-04 12:54 | DVHPNRES ---
Progress Note Date Seen: May 04, 2025 Resident Creating Document: SAUNDRA PRINCE Medical Necessity Reason Pt with a Central, PICC or Fol: No Subjective Review of Systems Patient is a 55-year-old [place]er-speaking male with past medical history of heart failure, coronary artery disease status post CABG and PTCA, diabetes mellitus, hypertension, pulmonary hypertension, and ICD placement, presented to [facility] ED with complaint of bilateral leg swelling. He reports one month of progressive bilateral leg swelling, multiple non-healing wounds on the legs, and since yesterday, complains of worsening shortness of breath. He also reports orthopnea and intermittent nocturnal dyspnea. He denies fever, trauma, and illicit drug use. Symptoms have been chronic but have worsened over the past week. He reports three episodes of similar symptoms in the past, and his primary care physician recommended that he come to the ED for further evaluation. He denies chest pain. He states the wounds began as areas of irritation where he scratched. He came to the ED due to concern that the wounds are not healing and the swelling is worsening. Chest X-ray showed right pleural effusion. Chest ultrasound showed moderate right and small left pleural effusion. CT of both legs showed no abscess or fracture. Past surgical history: CABG, PTCA, ICD placement Home medications: Aspirin 81 Mg, Carvedilol 6.25 Mg, Clopidogrel Bisulfate 75 Mg, Docusate Sodium 100 Mg, Jardiance 10 Mg, Furosemide 40 Mg, Furosemide 20 Mg, Gabapentin 100 Mg, Metformin Hydrochloride 500 Mg, Polyethylene Glycol Social History: Denies tobacco, alcohol, and illicit drug use. Allergies: No known drug allergies Patient seen and examined at bedside. Patient is alert and oriented to time, place person and responding to all questions. Eyes: No Pain, No Vision change, No Conjunctivae inflammation, No Eyelid inflammation, No Other, No Redness ENT: No Ear pain, No Ear discharge, No Nose pain, No Nose discharge, No Nose congestion, No Mouth pain, No Mouth swelling, No Throat pain, No Throat swelling, No Other Cardiovascular: No Chest Pain, No Palpitations, No Orthopnea, No Paroxysmal No Dyspnea, No Edema, No Lt Headedness, No Other Respiratory: No Cough, No Dry, Shortness of breath, No SOB with exertion, No Wheezing, No Hemoptysis, No Pleuritic Pain, No Sputum, No Other Gastrointestinal: No Nausea, No Vomiting, No Abdominal Pain, No Diarrhea, No Constipation, No Melena, No Hematochezia, No Other Genitourinary: No Dysuria, No Frequency, No Incontinence, No Hematuria, No Retention, No Other Musculoskeletal: No other, No neck pain, No shoulder pain, No arm pain, No back pain, No hand pain, leg pain, foot pain Skin: No Rash, No Lesions, No Jaundice, No Bruising, No Other Objective vital signs Vital Sign Date Time Temp Pulse Resp B/P (MAP) Pulse Ox O2 Delivery O2 Flow Rate FiO2 05/04/25 10:33 77 127/65 05/04/25 09:00 98.4 18 96 98.4 05/04/25 08:00 Room Air* 0 21 Total Intake and Output 05/03/25 05/03/25 05/04/25 15:00 23:00 07:00 Intake Total 530 ml 150 ml Output Total 420 ml Balance 530 ml -270 ml medications Current Medications Medications Dose Ordered Sig/Shakeel Route Start Time Stop Time Status Last Admin Dose Admin Enoxaparin Sodium 40 mg DAILY SC 05/04/25 10:00 Cefepime HCl 50 ml @ 12.5 mls/hr Q12HR IV 05/03/25 22:00 05/04/25 10:32 12.5 MLS/HR Doxycycline Hyclate 100 ml @ 50 mls/hr Q12H IV 05/03/25 13:00 05/04/25 00:31 50 MLS/HR Diagnostic Test (Pha) 1 strip Q6HR 05/03/25 18:00 05/04/25 12:25 1 STRIP Insulin Human Regular Q6HR SC 05/03/25 18:00 05/04/25 12:26 2 UNITS Dextrose 50 ml UD PRN IV 05/03/25 15:15 Clopidogrel Bisulfate 75 mg DAILY PO 05/04/25 10:00 Aspirin 81 mg DAILY PO 05/04/25 10:00 Carvedilol 6.25 mg BID PO 05/04/25 10:00 05/04/25 10:33 6.25 MG Furosemide 40 mg BIDD IV 05/04/25 18:00 Acetaminophen/ Hydrocodone Bitart 1 tab ONCE PRN PO 05/04/25 11:30 05/04/25 12:29 1 TAB Examination General Appearance: Cooperative. Well developed. Well nourished. Head Exam: Normal inspection Neck Exam: JVD, Normal inspection. Non-tender. Normal alignment Pulmonary/Respiratory: Chest non-tender. Clear bilateral breath sounds, no crackles, expiratory wheezing. Cardiovascular/Chest: Regular rate and rhythm. No murmurs. No JVD. Peripheral Pulses: 2+ Radial (R). 2+ Radial (L). 2+ Pedal (R). 2+ Pedal (L) Abdominal Exam: Normal bowel sounds. Soft. normal abdomen, no visible veins, Nontender. No hepatospenomegaly. No masses Ankle Exam: Negative ankle edema Lower extremities: 3+ pitting edema bilaterally. Neuro/Mental Status: A&O x4. Coherent. Thoughts/Psych: Normal thought pattern. Appropriate mood and affect. Good judgement and insight Skin Exam: Multiple superficial excoriations and non-healing wounds scattered over both legs, no purulence, no fluctuance. laboratory and microbiology Laboratory Tests 05/04/25 08:32 Test 05/04/25 08:32 Range/Units Serum Glucose 86 74-106 mg/dL Microbiology Date/Time Source Procedure Growth Status 05/03/25 11:13 Blood Blood Culture - Preliminary NO GROWTH AFTER 24 HOURS OF INCUBATION. Resulted Labs and/or images reviewed: Labs reviewed by me, Image(s) reviewed by me Problem List/Assessment/Plan Problem List/Assessment/Plan #Bilateral lower limb cellulitis #Ruled out DVT Doppler ultrasound: No sonographic evidence for DVT in the bilateral lower extremities. Bilateral nonspecific 7 mm groin lymph nodes. Lower Extremity CT: No definitive drainable measurable fluid collection allowing for limitation on CT analysis. Extensive surrounding subcutaneous adipose tissue edema. No CT evidence of an acute fracture. No drainable fluid collection identified. pain management with [place] Cefepime 1 GM IV q12hr Doxycycline 100MG/100ML IV q12h Lovenox 40 MG SC daily Lasix 40 MG IV bid Wound consult Wound culture Blood culture Lactic Acid # Right pleural effusion # Cardiomegaly Chest X-ray: Small right effusion, decreased from prior. No pneumothorax seen. Cardiomegaly with pulmonary vascular congestion. Thoracentesis: Right thoracentesis with 1.5L removed. Chest US: Moderate right and small left pleural effusion. Chest X-ray: Moderate right pleural effusion and right basilar opacity. Radiologist consult #Chronic kidney disease, stage 3 Monitor renal function Avoid nephrotoxic drugs #Coronary artery disease s/p CABG and PTCA Aspirin 81 MG PO daily Plavix 75 MG PO daily #Essential hypertension Carvedilol 6.25 MG PO bid #Type 2 diabetes mellitus with Accu-Chek Dextrose 50% Syringe Moderate Insulin SS Diet: Carb DVT prophylaxis: Lovenox 40mg Goals of care: Full code Plan discussed with patient Plan discussed with Dr. Doll Plan discussed with: Patient, Daughter, Other (RN) My Orders My Orders Orders - SAUNDRA PRINCE Procedure Category Date Status Time Lactic Acid W/ Reflex LAB 05/05/25 Verified Order 04:00 Vitamin B12 LAB 05/04/25 In Process 08:08 * Radiologist Consult CONS 05/04/25 Transmitted 08:15 Hydrocodone-Acet PHA 05/04/25 In Process 10/325mg Tab ([place] 11:30 Visit Coding STANDARD RES Billing Provider: CARMEN DOLL MD Date of Service if different f: May 04, 2025 Common Visit Codes: [id number] INP/OBS CARE(HIGH) SAUNDRA PRINCE RESIDENT May 04, 2025 12:54
--- NOTE | 2025-05-04 13:59 | DVH ---
US THORACENTESIS HISTORY: right pleural effusion PROCEDURE: Informed consent was obtained. The patient was seated on the bed. A limited localization ultrasound of the right thorax was obtained, and the optimal approach was marked on the skin. The area was prepped with chlorhexidine which was allowed to dry and draped in the usual sterile fashion. Time out was performed. The skin and the soft tissues were infiltrated with 1% lidocaine. A 5.5 [place] centesis needle catheter was advanced into right pleural space. Following aspiration of fluid, the catheter was advanced and the needle removed. About 1500 cc of fluid was drained. Specimen/s was/were sent for appropriate cultures/cytology/cultures and cytology. No immediate complication was identified. FINDINGS: Moderate right pleural effusion. Aspirated fluid is clear and serous. IMPRESSION: Right thoracentesis with 1.5L removed.
--- NOTE | 2025-05-04 14:02 | DVH ---
XY CHEST PORTABLE, HISTORY: S/P Thoracentesis COMPARISON: US CHEST ULTRASOUND on DOS: 05/03/25, XY CHEST PORTABLE on DOS: 05/03/25, XY CHEST XRAY 1 VIEW on DOS: 02/10/25 US CHEST ULTRASOUND on DOS: 05/03/25, XY CHEST PORTABLE on DOS: 05/03/25, XY CHEST XRAY 1 VIEW on DOS: 02/10/25 TECHNICAL DATA: 1 view of the chest was obtained. FINDINGS: Lines and tubes: Stable cardiac pacer. Cardiomediastinal silhouette: Enlarged Pulmonary vasculature: Prominent Lung expansion: Low Lung airspace: Bibasilar opacities. Lung interstitium: normal Pleura: Small right effusion. Pneumothorax: no Bones: Unremarkable Other: no IMPRESSION: Small right effusion, decreased from prior. No pneumothorax seen. Cardiomegaly with pulmonary vascular congestion.
[2025-05-04] MEDS: FUROSEMIDE 40 MG/4 ML VIAL IV SCH (18:46)
[2025-05-05] VITALS (8 sets, daily range): BP systolic 105–136; BP diastolic 61–76; PULSE 65–79; RESP 16–20; TEMP 97.8–98.8; O2SAT 92–98
[2025-05-05 06:00] LABS: Hematocrit 28.2 % (41.0-53.0); Hemoglobin 9.2 g/dL (13.5-17.5); Mean Corpuscular Hemoglobin 28.3 pg (28.0-32.0); Mean Corpuscular Volume 87.0 fL (80.0-100.0); Nucleated Red Blood Cells % 0.1 %
[2025-05-05 06:20] LABS: Alanine Aminotransferase 27 U/L (7-40); Anion Gap 9 (5-15); BUN/Creatinine Ratio 17.6 (10.0-20.0); Carbon Dioxide 24 mmol/L (20-31); Potassium 4.8 mmol/L (3.5-5.1); Sodium 143 mmol/L (136-145)
[2025-05-05 06:21] LABS: Bilirubin, Total 0.4 mg/dL (0.2-1.0)
[2025-05-05 06:23] LABS: Albumin 3.1 g/dL (3.2-4.8); Alkaline Phosphatase 215 U/L (46-116); Blood Urea Nitrogen 40 mg/dL (9-23); Calcium 8.1 mg/dL (8.7-10.4); Chloride 110 mmol/L (98-107); Glucose 65 mg/dL (74-106); Total Protein 5.7 g/dL (5.7-8.2)
[2025-05-05] MEDS: ONDANSETRON HCL 4 MG/2 ML VIAL IV PRN (09:44)
[2025-05-05] MEDS: HYDROcodone-ACET 5/325MG TAB PO PRN (13:53)
--- NOTE | 2025-05-05 13:55 | DVHPNRES ---
Progress Note Date Seen: May 05, 2025 Resident Creating Document: SAUNDRA PRINCE Medical Necessity Reason Pt with a Central, PICC or Fol: No Subjective Review of Systems Patient is a 55-year-old [place]-speaking male with past medical history of HFrEF (LVEF 25%) s/p ICD, coronary artery disease status post CABG and PTCA, diabetes mellitus, hypertension, pulmonary hypertension, presented to [facility] ED with complaint of bilateral leg swelling. He reports one month of progressive bilateral leg swelling, multiple non-healing wounds on the legs, and since yesterday, complains of worsening shortness of breath. He also reports orthopnea and paroxysmal nocturnal dyspnea. He denies fever, trauma, and illicit drug use. Symptoms have been chronic but have worsened over the past week. He reports three episodes of similar symptoms in the past, and his primary care physician recommended that he come to the ED for further evaluation. He denies chest pain. He states the wounds began as areas of irritation where he scratched. He came to the ED due to concern that the wounds are not healing and the swelling is worsening. Chest X-ray showed right pleural effusion. Chest ultrasound showed moderate right and small left pleural effusion. CT of both legs showed no abscess or fracture. On 05/05/25, Patient reports ongoing pain in lower extremities rated 7/10 and nausea earlier today without vomiting. Continue with furosemide 40 mg IV b.i.d.. Talk to patient's family by phone at bedside to discuss ongoing care and discharge plan; addressed questions and provided education. Past surgical history: CABG, PTCA, ICD placement Home medications: Aspirin 81 Mg, Carvedilol 6.25 Mg, Clopidogrel Bisulfate 75 Mg, Docusate Sodium 100 Mg, Jardiance 10 Mg, Furosemide 20 Mg p.o. daily, Gabapentin 100 Mg, Metformin Hydrochloride 500 Mg, Polyethylene Glycol Social History: Denies tobacco, alcohol, and illicit drug use. Allergies: No known drug allergies Patient seen and examined at bedside. Patient is alert and oriented to time, place person and responding to all questions. Eyes: No Pain, No Vision change, No Conjunctivae inflammation, No Eyelid inflammation, No Other, No Redness ENT: No Ear pain, No Ear discharge, No Nose pain, No Nose discharge, No Nose congestion, No Mouth pain, No Mouth swelling, No Throat pain, No Throat swelling, No Other Cardiovascular: No Chest Pain, No Palpitations, No Orthopnea, No Paroxysmal No Dyspnea, No Edema, No Lt Headedness, No Other Respiratory: No Cough, No Dry, Shortness of breath, No SOB with exertion, No Wheezing, No Hemoptysis, No Pleuritic Pain, No Sputum, No Other Gastrointestinal: No Nausea, No Vomiting, No Abdominal Pain, No Diarrhea, No Constipation, No Melena, No Hematochezia, No Other Genitourinary: No Dysuria, No Frequency, No Incontinence, No Hematuria, No Retention, No Other Musculoskeletal: No other, No neck pain, No shoulder pain, No arm pain, No back pain, No hand pain, leg pain, foot pain Skin: No Rash, No Lesions, No Jaundice, No Bruising, No Other Objective vital signs Vital Sign Date Time Temp Pulse Resp B/P (MAP) Pulse Ox O2 Delivery O2 Flow Rate FiO2 05/05/25 13:30 97.9 74 18 120/74 (89) 96 97.9 05/04/25 20:18 Room Air* 0 21 Total Intake and Output 05/04/25 05/04/25 05/05/25 15:00 23:00 07:00 Intake Total 50 ml 600 ml 700 ml Output Total 750 ml 500 ml Balance 50 ml -150 ml 200 ml medications Current Medications Medications Dose Ordered Sig/Shakeel Route Start Time Stop Time Status Last Admin Dose Admin Enoxaparin Sodium 40 mg DAILY SC 05/04/25 10:00 05/05/25 09:14 40 MG Cefepime HCl 50 ml @ 12.5 mls/hr Q12HR IV 05/03/25 22:00 05/05/25 09:46 12.5 MLS/HR Doxycycline Hyclate 100 ml @ 50 mls/hr Q12H IV 05/03/25 13:00 05/05/25 13:13 50 MLS/HR Diagnostic Test (Pha) 1 strip Q6HR 05/03/25 18:00 05/05/25 12:13 1 STRIP Insulin Human Regular Q6HR SC 05/03/25 18:00 05/04/25 23:32 6 UNITS Dextrose 50 ml UD PRN IV 05/03/25 15:15 Clopidogrel Bisulfate 75 mg DAILY PO 05/04/25 10:00 05/05/25 09:47 75 MG Aspirin 81 mg DAILY PO 05/04/25 10:00 05/05/25 09:47 81 MG Carvedilol 6.25 mg BID PO 05/04/25 10:00 05/05/25 09:47 6.25 MG Furosemide 40 mg BIDD IV 05/04/25 18:00 05/05/25 06:12 40 MG Ondansetron HCl 4 mg Q4HP PRN IV 05/05/25 09:30 05/05/25 09:44 4 MG Acetaminophen/ Hydrocodone Bitart 1 tab Q4HP PRN PO 05/05/25 13:45 Examination General Appearance: Cooperative. Well developed. Well nourished. Head Exam: Normal inspection Neck Exam: JVD, Normal inspection. Non-tender. Normal alignment Pulmonary/Respiratory: Chest non-tender. Clear bilateral breath sounds, no crackles, expiratory wheezing. Cardiovascular/Chest: Regular rate and rhythm. No murmurs. No JVD. Peripheral Pulses: 2+ Radial (R). 2+ Radial (L). 2+ Pedal (R). 2+ Pedal (L) Abdominal Exam: Normal bowel sounds. Soft. normal abdomen, no visible veins, Nontender. No hepatospenomegaly. No masses Lower extremities: Suprapatellar bilateral 3+ pitting edema bilaterally. Neuro/Mental Status: A&O x4. Coherent. Thoughts/Psych: Normal thought pattern. Appropriate mood and affect. Good judgement and insight Skin Exam: Multiple superficial excoriations and non-healing wounds scattered over both legs, no purulence, no fluctuance. Bilateral lower extremities with stable eschar, minimal edema, no drainage or odor. Mina score: 18. laboratory and microbiology Laboratory Tests 05/05/25 05:42 Test 05/05/25 05:42 Range/Units Serum Glucose 65 L 74-106 mg/dL Microbiology Date/Time Source Procedure Growth Status 05/04/25 13:20 Pleural Fluid Gram Stain - Final Resulted 05/04/25 13:20 Pleural Fluid Aerobic Culture - Preliminary No growth Resulted 05/03/25 11:13 Blood Blood Culture - Preliminary NO GROWTH AFTER 48 HOURS OF INCUBATION. Resulted Labs and/or images reviewed: Labs reviewed by me, Image(s) reviewed by me (RN) Problem List/Assessment/Plan Problem List/Assessment/Plan #Acute respiratory failure #Acute on chronic systolic congestive heart failure (HFrEF, LVEF 25%) - status post ICD placement #Pulmonary hypertension #Coronary artery disease s/p CABG and PTCA #Ischemic cardiomyopathy On admission patient required oxygen therapy with nasal cannula 2 L/min Patient currently on IV diuretics (40 mg b.i.d.) Continue with DAPT (Aspirin 81 MG PO daily and Plavix 75 MG PO daily) # Right pleural effusion, transudate Chest X-ray: Small right effusion, decreased from prior. No pneumothorax seen. Cardiomegaly with pulmonary vascular congestion. Thoracentesis: Right thoracentesis with 1.5L removed. Chest US: Moderate right and small left pleural effusion. Chest X-ray: Moderate right pleural effusion and right basilar opacity. Light's Criteria: Transudate Total serum protein 5.7 Pleural fluid protein 2.3 Serum LDH 193 Pleural fluid LDH 86 #Bilateral lower limb cellulitis #Ruled out DVT Doppler ultrasound: No sonographic evidence for DVT in the bilateral lower extremities. Bilateral nonspecific 7 mm groin lymph nodes. Lower Extremity CT: No definitive drainable measurable fluid collection allowing for limitation on CT analysis. Extensive surrounding subcutaneous adipose tissue edema. No CT evidence of an acute fracture. No drainable fluid collection identified. pain management with [place] Cefepime 1 GM IV q12hr Doxycycline 100MG/100ML IV q12h Lovenox 40 MG SC daily Lasix 40 MG IV bid Wound consult Wound culture Blood culture Lactic Acid Mina score: 18. #Chronic kidney disease, stage 3 Monitor renal function Avoid nephrotoxic drugs #Essential hypertension Carvedilol 6.25 MG PO bid #Type 2 diabetes mellitus with Accu-Chek Dextrose 50% Syringe Moderate Insulin SS Diet: Carb DVT prophylaxis: Lovenox 40mg Goals of care: Full code Plan discussed with patient Plan discussed with Dr. Doll Plan discussed with: Patient, Other (Sister and RN) My Orders My Orders Orders - SAUNDRA PRINCE Procedure Category Date Status Time Ondansetron Hcl PHA 05/05/25 In Process (Zofran) 09:30 Hydrocodone-Acet PHA 05/05/25 In Process 5/325mg Tab ([place] 13:45 Visit Coding STANDARD RES Billing Provider: CARMEN DOLL MD Date of Service if different f: May 05, 2025 Common Visit Codes: [id number] INP/OBS CARE(HIGH) SAUNDRA PRINCE May 05, 2025 13:55 WALESKA CLAYTON May 05, 2025 19:39
[2025-05-05 14:07] LABS: Glucose, Body Fluid 135.0 mg/dL (.); LD, Body Fluid 86.0 IU/L (.)
[2025-05-05] MEDS: ATORVASTATIN 20 MG TAB PO SCH (22:00)
[2025-05-06 01:00] VITALS: BP 137/88; PULSE 74; RESP 20; TEMP 99; O2SAT 99
[2025-05-06 05:00] VITALS: BP 135/76; PULSE 72; RESP 20; TEMP 97.3; O2SAT 99
[2025-05-06 07:45] LABS: Hematocrit 29.3 % (41.0-53.0); Hemoglobin 9.4 g/dL (13.5-17.5); Mean Corpuscular Hemoglobin 27.7 pg (28.0-32.0); Mean Corpuscular Volume 86.2 fL (80.0-100.0); Nucleated Red Blood Cells % 0.0 %
[2025-05-06 08:00] VITALS: BP 153/89; PULSE 70; RESP 20; TEMP 98.8; O2SAT 100
[2025-05-06 08:51] LABS: Alanine Aminotransferase 24 U/L (7-40); Anion Gap 11 (5-15); BUN/Creatinine Ratio 23.0 (10.0-20.0); Carbon Dioxide 26 mmol/L (20-31); Chloride 106 mmol/L (98-107); Potassium 4.7 mmol/L (3.5-5.1); Sodium 143 mmol/L (136-145); Total Protein 6.1 g/dL (5.7-8.2)
[2025-05-06 08:52] LABS: Albumin 3.5 g/dL (3.2-4.8); Alkaline Phosphatase 222 U/L (46-116); Blood Urea Nitrogen 48 mg/dL (9-23); Calcium 8.6 mg/dL (8.7-10.4); Glucose 125 mg/dL (74-106)
[2025-05-06 08:53] LABS: Bilirubin, Total 0.6 mg/dL (0.2-1.0)
[2025-05-06 12:32] VITALS: BP 144/79; PULSE 74; RESP 18; TEMP 98.9; O2SAT 98
--- NOTE | 2025-05-06 14:10 | DVHPNRES ---
Progress Note Date Seen: May 06, 2025 Resident Creating Document: ARY COMBS RESIDENT Medical Necessity Reason Pt with a Central, PICC or Fol: No Subjective Review of Systems Patient was seen today at bedside Labs and chart reviewed Patient with mild tachypnea, bilateral lung crackles and bilateral leg edema present Patient on Lasix Plan is to titer NC O2 and take oxygen off Patient on Lasix No change in medication today Objective vital signs Vital Sign Date Time Temp Pulse Resp B/P (MAP) Pulse Ox O2 Delivery O2 Flow Rate FiO2 05/06/25 12:32 98.9 74 18 144/79 (100) 98 98.9 05/05/25 20:10 Room Air* 0 21 Total Intake and Output 05/05/25 05/05/25 05/06/25 15:00 23:00 07:00 Intake Total 50 ml 750 ml 240 ml Output Total 275 ml Balance 50 ml 750 ml -35 ml medications Current Medications Medications Dose Ordered Sig/Shakeel Route Start Time Stop Time Status Last Admin Dose Admin Enoxaparin Sodium 40 mg DAILY SC 05/04/25 10:00 05/06/25 10:05 40 MG Cefepime HCl 50 ml @ 12.5 mls/hr Q12HR IV 05/03/25 22:00 05/06/25 10:05 12.5 MLS/HR Doxycycline Hyclate 100 ml @ 50 mls/hr Q12H IV 05/03/25 13:00 05/06/25 01:46 50 MLS/HR Diagnostic Test (Pha) 1 strip Q6HR 05/03/25 18:00 05/06/25 11:22 1 STRIP Insulin Human Regular Q6HR SC 05/03/25 18:00 05/06/25 06:20 2 UNITS Dextrose 50 ml UD PRN IV 05/03/25 15:15 Clopidogrel Bisulfate 75 mg DAILY PO 05/04/25 10:00 05/06/25 10:05 75 MG Aspirin 81 mg DAILY PO 05/04/25 10:00 05/06/25 10:05 81 MG Carvedilol 6.25 mg BID PO 05/04/25 10:00 05/06/25 10:05 6.25 MG Furosemide 40 mg BIDD IV 05/04/25 18:00 05/06/25 06:19 40 MG Ondansetron HCl 4 mg Q4HP PRN IV 05/05/25 09:30 05/05/25 13:54 4 MG Acetaminophen/ Hydrocodone Bitart 1 tab Q4HP PRN PO 05/05/25 13:45 05/05/25 13:53 1 TAB Atorvastatin Calcium 40 mg HS PO 05/05/25 22:00 Examination General examination- awake, alert HEENT- PEERLA, no acute nasal discharge Cardiovascular- S1-S2 audible, rate and rhythm regular, no murmur Respiratory- bilateral lung crackles Gastrointestinal-nontender, bowel sound+. Nondistended Musculoskeletal-no acute joint swelling or tenderness or redness Lower extremity- bilateral leg edema++ Neurological- cranial nerves intact, no acute dysarthria or dysphagia Psychiatry- denies depression or SI or HI Skin- no acute rash or purpura laboratory and microbiology Laboratory Tests 05/06/25 07:09 Test 05/06/25 07:09 Range/Units Serum Glucose 125 H 74-106 mg/dL Microbiology Date/Time Source Procedure Growth Status 05/04/25 13:20 Pleural Fluid Gram Stain - Final Resulted 05/04/25 13:20 Pleural Fluid Aerobic Culture - Preliminary No growth Resulted 05/03/25 11:13 Blood Blood Culture - Preliminary NO GROWTH AFTER 72 HOURS OF INCUBATION. Resulted Problem List/Assessment/Plan Problem List/Assessment/Plan List/Assessment/Plan-patient with a mild tachypnea, on [place] O2 2 L/min, bilateral lung crackles present, bilateral leg edema 2+, we will continue current treatment, no change in medication today. #Acute respiratory failure #Acute on chronic systolic congestive heart failure (HFrEF, LVEF 25%) - status post ICD placement #Pulmonary hypertension #Coronary artery disease s/p CABG and PTCA #Ischemic cardiomyopathy On admission patient required oxygen therapy with nasal cannula 2 L/min Patient currently on IV diuretics (40 mg b.i.d.) Continue with DAPT (Aspirin 81 MG PO daily and Plavix 75 MG PO daily) # Right pleural effusion, transudate Chest X-ray: Small right effusion, decreased from prior. No pneumothorax seen. Cardiomegaly with pulmonary vascular congestion. Thoracentesis: Right thoracentesis with 1.5L removed. Chest US: Moderate right and small left pleural effusion. Chest X-ray: Moderate right pleural effusion and right basilar opacity. Light's Criteria: Transudate Total serum protein 5.7 Pleural fluid protein 2.3 Serum LDH 193 Pleural fluid LDH 86 #Bilateral lower limb cellulitis #Ruled out DVT Doppler ultrasound: No sonographic evidence for DVT in the bilateral lower extremities. Bilateral nonspecific 7 mm groin lymph nodes. Lower Extremity CT: No definitive drainable measurable fluid collection allowing for limitation on CT analysis. Extensive surrounding subcutaneous adipose tissue edema. No CT evidence of an acute fracture. No drainable fluid collection identified. pain management with [place] Cefepime 1 GM IV q12hr Doxycycline 100MG/100ML IV q12h Lovenox 40 MG SC daily Lasix 40 MG IV bid Wound consult Wound culture Blood culture Lactic Acid Mina score: 18. #Chronic kidney disease, stage 3 Monitor renal function Avoid nephrotoxic drugs #Essential hypertension Carvedilol 6.25 MG PO bid #Type 2 diabetes mellitus with Accu-Chek Dextrose 50% Syringe Moderate Insulin SS Diet: Carb DVT prophylaxis: Lovenox 40mg Goals of care: Full code Plan discussed with patient Plan discussed with Dr. Chapman Plan discussed with: Patient, Other (Sister and RN) Plan discussed with: Patient, Other (RN, SISTER) Visit Coding STANDARD RES Billing Provider: CHRISSY CHAPMAN MD Date of Service if different f: May 06, 2025 Common Visit Codes: [id number] INP/OBS CARE(HIGH) ARY COMBS RESIDENT May 06, 2025 14:10
[2025-05-06 17:00] VITALS: BP 139/77; PULSE 72; RESP 20; TEMP 99.7; O2SAT 98
[2025-05-06 21:00] VITALS: BP 153/80; PULSE 79; RESP 14; TEMP 98.4; O2SAT 98
[2025-05-07 01:00] VITALS: BP 149/88; PULSE 71; RESP 12; TEMP 97.7; O2SAT 99
[2025-05-07 05:00] VITALS: BP 150/86; PULSE 68; RESP 12; TEMP 97.4; O2SAT 98
[2025-05-07 06:19] LABS: Hematocrit 28.2 % (41.0-53.0); Hemoglobin 9.0 g/dL (13.5-17.5); Mean Corpuscular Hemoglobin 27.5 pg (28.0-32.0); Mean Corpuscular Volume 86.3 fL (80.0-100.0); Nucleated Red Blood Cells % 0.1 %
[2025-05-07 06:34] LABS: Alanine Aminotransferase 24 U/L (7-40); Albumin 3.3 g/dL (3.2-4.8); Anion Gap 9 (5-15); BUN/Creatinine Ratio 25.5 (10.0-20.0); Bilirubin, Total 0.5 mg/dL (0.2-1.0); Carbon Dioxide 27 mmol/L (20-31); Chloride 106 mmol/L (98-107); Magnesium 2.1 mg/dL (1.6-2.6); Potassium 4.5 mmol/L (3.5-5.1); Sodium 142 mmol/L (136-145); Total Protein 5.9 g/dL (5.7-8.2)
[2025-05-07 06:39] LABS: Alkaline Phosphatase 232 U/L (46-116); Blood Urea Nitrogen 52 mg/dL (9-23); Glucose 121 mg/dL (74-106)
[2025-05-07 06:40] LABS: Calcium 8.6 mg/dL (8.7-10.4)
[2025-05-07 08:17] VITALS: BP 157/86; PULSE 69; RESP 18; TEMP 98.3; O2SAT 99
[2025-05-07 12:50] VITALS: BP 150/73; PULSE 71; RESP 20; TEMP 98.2; O2SAT 97
[2025-05-07] MEDS ORDERED: LACTULOSE 20Gm/30ML SOLN PO PRN (13:30)
--- NOTE | 2025-05-07 13:46 | DVHPNRES ---
Progress Note Date Seen: May 07, 2025 Resident Creating Document: SAUNDRA PRINCE Medical Necessity Reason Pt with a Central, PICC or Fol: No Subjective Review of Systems Patient is a 55-year-old Citizen Of [place]-speaking male with past medical history of HFrEF (LVEF 25%) s/p ICD, coronary artery disease status post CABG and PTCA, diabetes mellitus, hypertension, pulmonary hypertension, presented to [facility] ED with complaint of bilateral leg swelling. He reports one month of progressive bilateral leg swelling, multiple non-healing wounds on the legs, and since yesterday, complains of worsening shortness of breath. He also reports orthopnea and paroxysmal nocturnal dyspnea. He denies fever, trauma, and illicit drug use. Symptoms have been chronic but have worsened over the past week. He reports three episodes of similar symptoms in the past, and his primary care physician recommended that he come to the ED for further evaluation. He denies chest pain. He states the wounds began as areas of irritation where he scratched. He came to the ED due to concern that the wounds are not healing and the swelling is worsening. Chest X-ray showed right pleural effusion. Chest ultrasound showed moderate right and small left pleural effusion. CT of both legs showed no abscess or fracture. On 05/05/25, Patient reports ongoing pain in lower extremities rated 7/10 and nausea earlier today without vomiting. Continue with furosemide 40 mg IV b.i.d.. Talk to patient's family by phone at bedside to discuss ongoing care and discharge plan; addressed questions and provided education. On 05/07/25, Patient is receiving oxygen at 1 L/min via nasal cannula this morning, and oxygen has now been weaned off. Cefepime and doxycycline have been discontinued, and clindamycin has been started. Empagliflozin, hydralazine have been started due to uncontrolled blood pressure. Past surgical history: CABG, PTCA, ICD placement Home medications: Aspirin 81 Mg, Carvedilol 6.25 Mg, Clopidogrel Bisulfate 75 Mg, Docusate Sodium 100 Mg, Jardiance 10 Mg, Furosemide 20 Mg p.o. daily, Gabapentin 100 Mg, Metformin Hydrochloride 500 Mg, Polyethylene Glycol Social History: Denies tobacco, alcohol, and illicit drug use. Allergies: No known drug allergies Patient seen and examined at bedside. Patient is alert and oriented to time, place person and responding to all questions. Eyes: No Pain, No Vision change, No Conjunctivae inflammation, No Eyelid inflammation, No Other, No Redness ENT: No Ear pain, No Ear discharge, No Nose pain, No Nose discharge, No Nose congestion, No Mouth pain, No Mouth swelling, No Throat pain, No Throat swelling, No Other Cardiovascular: No Chest Pain, No Palpitations, No Orthopnea, No Paroxysmal No Dyspnea, No Edema, No Lt Headedness, No Other Respiratory: No Cough, No Dry, Shortness of breath, No SOB with exertion, No Wheezing, No Hemoptysis, No Pleuritic Pain, No Sputum, No Other Gastrointestinal: No Nausea, No Vomiting, No Abdominal Pain, No Diarrhea, No Constipation, No Melena, No Hematochezia, No Other Genitourinary: No Dysuria, No Frequency, No Incontinence, No Hematuria, No Retention, No Other Musculoskeletal: No other, No neck pain, No shoulder pain, No arm pain, No back pain, No hand pain, leg pain, foot pain Skin: No Rash, No Lesions, No Jaundice, No Bruising, No Other Objective vital signs Vital Sign Date Time Temp Pulse Resp B/P (MAP) Pulse Ox O2 Delivery O2 Flow Rate FiO2 05/07/25 12:50 98.2 71 20 150/73 (98) 97 98.2 05/06/25 20:15 Nasal Cannula* 1 24 Total Intake and Output 05/06/25 05/06/25 05/07/25 15:00 23:00 07:00 Intake Total 50 ml 680 ml 400 ml Output Total 650 ml 600 ml Balance 50 ml 30 ml -200 ml medications Current Medications Medications Dose Ordered Sig/Shakeel Route Start Time Stop Time Status Last Admin Dose Admin Enoxaparin Sodium 40 mg DAILY SC 05/04/25 10:00 05/07/25 10:24 40 MG Cefepime HCl 50 ml @ 12.5 mls/hr Q12HR IV 05/03/25 22:00 05/07/25 10:22 12.5 MLS/HR Doxycycline Hyclate 100 ml @ 50 mls/hr Q12H IV 05/03/25 13:00 05/07/25 01:39 50 MLS/HR Diagnostic Test (Pha) 1 strip Q6HR 05/03/25 18:00 05/07/25 12:24 1 STRIP Insulin Human Regular Q6HR SC 05/03/25 18:00 05/07/25 12:25 3 UNITS Dextrose 50 ml UD PRN IV 05/03/25 15:15 Clopidogrel Bisulfate 75 mg DAILY PO 05/04/25 10:00 05/07/25 10:23 75 MG Aspirin 81 mg DAILY PO 05/04/25 10:00 05/07/25 10:23 81 MG Carvedilol 6.25 mg BID PO 05/04/25 10:00 05/07/25 10:23 6.25 MG Furosemide 40 mg BIDD IV 05/04/25 18:00 05/07/25 06:16 40 MG Ondansetron HCl 4 mg Q4HP PRN IV 05/05/25 09:30 05/07/25 04:42 4 MG Acetaminophen/ Hydrocodone Bitart 1 tab Q4HP PRN PO 05/05/25 13:45 05/07/25 04:42 1 TAB Atorvastatin Calcium 40 mg HS PO 05/05/25 22:00 05/06/25 22:28 40 MG Lactulose 30 ml Q6HPRN PRN PO 05/07/25 13:30 Examination General Appearance: Cooperative. Well developed. Well nourished. Head Exam: Normal inspection Neck Exam: JVD, Normal inspection. Non-tender. Normal alignment Pulmonary/Respiratory: Chest non-tender. Clear bilateral breath sounds, b ilateral lung crackles , expiratory wheezing. Cardiovascular/Chest: Regular rate and rhythm. No murmurs. No JVD. Peripheral Pulses: 2+ Radial (R). 2+ Radial (L). 2+ Pedal (R). 2+ Pedal (L) Abdominal Exam: Normal bowel sounds. Soft. normal abdomen, no visible veins, Nontender. No hepatospenomegaly. No masses Lower extremities: Suprapatellar bilateral 2+ pitting edema bilaterally. Neuro/Mental Status: A&O x4. Coherent. Thoughts/Psych: Normal thought pattern. Appropriate mood and affect. Good judgement and insight Skin Exam: Multiple superficial excoriations and non-healing wounds scattered over both legs, no purulence, no fluctuance. Bilateral lower extremities with stable eschar, minimal edema, no drainage or odor. Mina score: 18. laboratory and microbiology Laboratory Tests 05/07/25 05:28 Test 05/07/25 05:28 Range/Units Serum Glucose 121 H 74-106 mg/dL Microbiology Date/Time Source Procedure Growth Status 05/04/25 13:20 Pleural Fluid Gram Stain - Final Resulted 05/04/25 13:20 Pleural Fluid Aerobic Culture - Preliminary No growth Resulted 05/03/25 11:13 Blood Blood Culture - Preliminary NO GROWTH AFTER 72 HOURS OF INCUBATION. Resulted Labs and/or images reviewed: Labs reviewed by me, Image(s) reviewed by me Problem List/Assessment/Plan Problem List/Assessment/Plan #Acute respiratory failure #Acute on chronic systolic congestive heart failure (HFrEF, LVEF 25%) - status post ICD placement #Pulmonary hypertension #Coronary artery disease s/p CABG and PTCA #Ischemic cardiomyopathy On admission patient required oxygen therapy with nasal cannula 2 L/min Patient currently on IV diuretics (40 mg b.i.d.) Continue with DAPT (Aspirin 81 MG PO daily and Plavix 75 MG PO daily) # Right pleural effusion, transudate Chest X-ray: Small right effusion, decreased from prior. No pneumothorax seen. Cardiomegaly with pulmonary vascular congestion. Thoracentesis: Right thoracentesis with 1.5L removed. Chest US: Moderate right and small left pleural effusion. Chest X-ray: Moderate right pleural effusion and right basilar opacity. Light's Criteria: Transudate Total serum protein 5.7 Pleural fluid protein 2.3 Serum LDH 193 Pleural fluid LDH 86 #Bilateral lower limb cellulitis #Ruled out DVT Doppler ultrasound: No sonographic evidence for DVT in the bilateral lower extremities. Bilateral nonspecific 7 mm groin lymph nodes. Lower Extremity CT: No definitive drainable measurable fluid collection allowing for limitation on CT analysis. Extensive surrounding subcutaneous adipose tissue edema. No CT evidence of an acute fracture. No drainable fluid collection identified. pain management with [place] Cefepime 1 GM IV q12hr Doxycycline 100MG/100ML IV q12h Lovenox 40 MG SC daily Lasix 40 MG IV bid Wound consult Wound culture Blood culture Lactic Acid Mina score: 18. #Chronic kidney disease, stage 3 Monitor renal function Avoid nephrotoxic drugs #Essential hypertension Carvedilol 6.25 MG PO bid #Type 2 diabetes mellitus with Accu-Chek Dextrose 50% Syringe Moderate Insulin SS Diet: Carb DVT prophylaxis: Lovenox 40mg Goals of care: Full code Plan discussed with patient Plan discussed with Dr. Doll Plan discussed with: Patient, Other (RN) My Orders My Orders Orders - SAUNDRA PRINCE Procedure Category Date Status Time Pt Request For Service PT 05/07/25 Logged 13:17 * Road [employer] CONS 05/07/25 Transmitted Consult Lactulose Oral PHA 05/07/25 In Process 13:30 Visit Coding STANDARD RES Billing Provider: CHRISSY DOLAN MD Date of Service if different f: May 07, 2025 Common Visit Codes: [id number] INP/OBS CARE(HIGH) SAUNDRA PRINCE RESIDENT May 07, 2025 13:46
[2025-05-07] MEDS: LACTULOSE 20Gm/30ML SOLN PO ONE (14:22)
[2025-05-07] MEDS: CLINDAMYCIN 600MG IV 50 ML IV ONE (15:28)
[2025-05-07] MEDS: FUROSEMIDE 40 MG TAB PO SCH (16:32)
[2025-05-07 17:00] VITALS: BP 146/84; PULSE 70; RESP 20; TEMP 98.8; O2SAT 100
[2025-05-07 21:00] VITALS: BP 148/81; PULSE 70; RESP 21; TEMP 98.5; O2SAT 96
[2025-05-07] MEDS: ISOSORBIDE MONONITRATE 20 MG TAB PO SCH (21:34)
[2025-05-07] MEDS: CLINDAMYCIN 600MG IV 50 ML IV SCH (23:32)
[2025-05-08 01:00] VITALS: BP 130/73; PULSE 69; RESP 21; TEMP 98.8; O2SAT 92
[2025-05-08 05:00] VITALS: BP 138/79; PULSE 70; RESP 20; TEMP 98.8; O2SAT 90
[2025-05-08 06:24] LABS: Hematocrit 28.0 % (41.0-53.0); Hemoglobin 9.1 g/dL (13.5-17.5); Mean Corpuscular Hemoglobin 27.8 pg (28.0-32.0); Mean Corpuscular Volume 85.6 fL (80.0-100.0); Nucleated Red Blood Cells % 0.0 %
[2025-05-08 06:43] LABS: Alanine Aminotransferase 24 U/L (7-40); Albumin 3.5 g/dL (3.2-4.8); Anion Gap 9 (5-15); BUN/Creatinine Ratio 27.3 (10.0-20.0); Bilirubin, Total 0.5 mg/dL (0.2-1.0); Carbon Dioxide 26 mmol/L (20-31); Chloride 106 mmol/L (98-107); Potassium 4.4 mmol/L (3.5-5.1); Sodium 141 mmol/L (136-145); Total Protein 6.1 g/dL (5.7-8.2)
[2025-05-08 06:58] LABS: Alkaline Phosphatase 239 U/L (46-116); Blood Urea Nitrogen 57 mg/dL (9-23); Calcium 8.7 mg/dL (8.7-10.4); Glucose 130 mg/dL (74-106)
[2025-05-08 08:00] VITALS: BP 130/74; PULSE 66; RESP 18; TEMP 98.5; O2SAT 96
[2025-05-08] MEDS: EMPAGLIFLOZIN 10 MG TAB PO SCH (09:23)
[2025-05-08 13:57] VITALS: BP 143/76; PULSE 69; RESP 16; TEMP 98; O2SAT 96
[2025-05-08] MEDS ORDERED: DOXY100C79 PO (14:07)
--- NOTE | 2025-05-08 14:11 | DVHDSRES ---
Discharge Summary Date of Admission Resident Creating Document: SAUNDRA PRINCE RESIDENT May 03, 2025 at 12:58 Date of Discharge: May 08, 2025 Admitting Diagnosis bilateral leg swelling Labs/Diagnostic Data: Laboratory Results Test 05/08/25 12:28 05/08/25 05:29 05/07/25 05:28 05/05/25 05:42 POC Glucose 111 mg/dl (70-106) White Blood Count 5.7 10^3/uL (4.4-10.8) Red Blood Count 3.27 10^6/uL (4.5-5.90) Hemoglobin 9.1 g/dL (13.5-17.5) Hematocrit 28.0 % (41.0-53.0) Mean Corpuscular Volume 85.6 fL (80.0-100.0) Mean Corpuscular Hemoglobin 27.8 pg (28.0-32.0) Mean Corpuscular Hemoglobin Concent 32.4 g/dL (32.0-36.0) Red Cell Distribution Width 15.3 % (11.8-14.3) Platelet Count 157 10^3/uL (140-450) Mean Platelet Volume 7.9 fL (6.9-10.8) Neutrophils (%) (Auto) 69.6 % (37.0-80.0) Lymphocytes (%) (Auto) 16.4 % (10.0-50.0) Monocytes (%) (Auto) 10.0 % (0.0-12.0) Eosinophils (%) (Auto) 3.5 % (0.0-7.0) Basophils (%) (Auto) 0.5 % (0.0-2.0) Neutrophils # (Auto) 3.9 10 ^3/uL (1.6-8.6) Lymphocytes # (Auto) 0.9 10 ^3/uL (0.4-5.4) Monocytes # (Auto) 0.6 10 ^3/uL (0-1.3) Eosinophils # (Auto) 0.2 10 ^3/uL (0-0.8) Basophils # (Auto) 0 10 ^3/uL (0-0.2) Nucleated Red Blood Cells 0.0 % Sodium Level 141 mmol/L (136-145) Potassium Level 4.4 mmol/L (3.5-5.1) Chloride Level 106 mmol/L (98-107) Carbon Dioxide Level 26 mmol/L (20-31) Anion Gap 9 (5-15) Blood Urea Nitrogen 57 mg/dL (9-23) Creatinine 2.09 mg/dL (0.700-1.30) Glomerular Filtration Rate Calc 37 mL/min (>90) BUN/Creatinine Ratio 27.3 (10.0-20.0) Serum Glucose 130 mg/dL (74-106) Calcium Level 8.7 mg/dL (8.7-10.4) Total Bilirubin 0.5 mg/dL (0.2-1.0) Aspartate Amino Transferase (AST) 13 U/L (13-40) Alanine Aminotransferase (ALT) 24 U/L (7-40) Alkaline Phosphatase 239 U/L (46-116) Total Protein 6.1 g/dL (5.7-8.2) Albumin 3.5 g/dL (3.2-4.8) Magnesium Level 2.1 mg/dL (1.6-2.6) Lactic Acid Level 0.6 mmol/L (0.4-2.0) Lactate Dehydrogenase 193 U/L (120-246) Test 05/04/25 13:20 05/04/25 08:32 05/03/25 12:40 05/03/25 11:10 Body Fluid Source Pleural fluid Body Fluid pH 8.0 Body Fluid WBC (Manual) 577 CUMM (0-200) Body Fluid RBC (Manual) 30 CUMM (0-2000) Body Fluid Mononuclear Cells 94 % Body Fluid Polymorphonuclear Cells 6 % (0-25) Body Fluid Glucose 135 mg/dL (.) Body Fluid Total Protein 2.3 g/dL (.) Body Fluid Lactate Dehydrogenase 86 IU/L (.) Prothrombin Time 11.5 sec (9.3-11.8) Prothrombin Time INR 1.09 (0.9-1.15) Activated Partial Thromboplast Time 30.5 SEC (24.5-34.5) Phosphorus Level 5.2 mg/dL (2.4-5.1) Triglycerides Level 58 mg/dL (< 150) Cholesterol Level 101 mg/dL (< 200) LDL Cholesterol 47 mg/dL (< 100) HDL Cholesterol 39 mg/dL (40-59) Vitamin B12 Level > 4000 pg/mL (211-911) Vitamin D 25-Hydroxy 22.8 ng/mL (30.0-100) Thyroid Stimulating Hormone (TSH) 2.32 uIU/mL (0.55-4.78) Urine Color Light-yellow (Yellow) Urine Clarity Clear (Clear) Urine pH 5.5 (5.0-9.0) Urine Specific [place] 1.010 (1.001-1.035) Urine Protein 1+ (Negative) Urine Ketones Negative (Negative) Urine Blood Trace /uL (Negative) Urine Nitrite Negative (Negative) Urine Bilirubin Negative (Negative) Urine Urobilinogen Normal mg/dL (Negative) Urine Leukocyte Esterase Negative /uL (Negative) Urine RBC 5 /hpf (0 - 3) Urine Microscopic WBC < 1 /HPF (0-3) Urine Squamous Epithelial Cells None seen /hpf (<5) Urine Bacteria None seen /hpf (None Seen) Urine Glucose 3+ mg/dL (Normal) Urine Opiates Screen Neg (NEGATIVE) Urine Fentanyl Screen Neg (NEGATIVE) Urine Barbiturates Screen Neg (NEGATIVE) Urine Phencyclidine Screen Neg (NEGATIVE) Urine Amphetamines Screen Neg (NEGATIVE) Urine Benzodiazepines Screen Neg (NEGATIVE) Urine Cocaine Screen Neg (NEGATIVE) Urine Cannabinoids Screen Neg (NEGATIVE) Hemoglobin A1c 7.2 % A1C (<5.7) Troponin I High Sensitivity 12 ng/L (</=54) B-Type Natriuretic Peptide 1929.95 pg/mL (0-100) Other Laboratory Tests 05/08/25 05:29 Brief Hx & Hospital Course: The patient is a 55-year-old Maltese-speaking male with a past medical history of heart failure with reduced ejection fraction (LVEF 25%) status post ICD placement, coronary artery disease status post CABG and PTCA, diabetes mellitus, hypertension, and pulmonary hypertension. He presented to [facility] ED with one month of progressive bilateral leg swelling, multiple non-healing wounds on the legs, and worsening shortness of breath since the previous day. He also reported orthopnea and paroxysmal nocturnal dyspnea. He denied fever, trauma, chest pain, and illicit drug use. Chest X-ray revealed a right pleural effusion, and chest ultrasound confirmed a moderate right and small left pleural effusion. CT of both legs showed no abscess or fracture. Hospital course On admission, the patient required oxygen therapy at 2 L/min via nasal cannula and was started on IV diuretics (furosemide 40 mg twice daily). On May 04, 2025, ultrasound-guided thoracentesis was performed, and 1.5 liters of clear serous fluid were removed without complications. Post-procedure imaging showed a small residual right effusion and no pneumothorax. Antibiotic therapy was initiated for bilateral lower extremity cellulitis, initially with cefepime and doxycycline, later transitioned to clindamycin. Pain was managed with [place]. Doppler ultrasound ruled out DVT, and CT imaging confirmed no drainable abscess. Blood and wound cultures were obtained. On May 07, oxygen was weaned off, and empagliflozin and hydralazine were started for blood pressure and heart failure management. The patient remained hemodynamically stable, with improvement in respiratory symptoms and stable lower extremity wounds. On evaluation today, he states he is well, pain is manageable. His vitals have remained stable for discharge home, follow up visit in discharge clinic. All medications and recommendations were thoroughly explained and the patient states he understands and agrees. Detailed discussion held with patient at bedside were all questions were answered and concerns were addressed. Physical examination General Appearance: Cooperative. Well developed. Well nourished. Head Exam: Normal inspection Neck Exam: JVD, Normal inspection. Non-tender. Normal alignment Pulmonary/Respiratory: Chest non-tender. Clear bilateral breath sounds, b ilateral lung crackles , expiratory wheezing. Cardiovascular/Chest: Regular rate and rhythm. No murmurs. No JVD. Peripheral Pulses: 2+ Radial (R). 2+ Radial (L). 2+ Pedal (R). 2+ Pedal (L) Abdominal Exam: Normal bowel sounds. Soft. normal abdomen, no visible veins, Nontender. No hepatospenomegaly. No masses Lower extremities: Suprapatellar bilateral 2+ pitting edema bilaterally. Neuro/Mental Status: A&O x4. Coherent. Thoughts/Psych: Normal thought pattern. Appropriate mood and affect. Good judgement and insight Skin Exam: Multiple superficial excoriations and non-healing wounds scattered over both legs, no purulence, no fluctuance. Bilateral lower extremities with stable eschar, minimal edema, no drainage or odor. Mina score: 18. Operations or Procedures PATIENT: AGUSTIN LEDESMA ACCT: [id number] UNIT: [id number] : 1970 LOC: OVERFLOW ROOM / BED: [facility]- / A AGE / SEX: 55 / M ADM STATUS: ADM IN SERVICE 1311 ORDERING PHYSICIAN: ROGER BROOKE MD PROCEDURE(s): CXRP - CHEST PORTABLE REASON: S/P Thoracentesis ORDER NUMBER(s): [id number], ACCESSION NUMBER(s): [id number] XY CHEST PORTABLE, HISTORY: S/P Thoracentesis COMPARISON: US CHEST ULTRASOUND on DOS: 05/03/25, XY CHEST PORTABLE on DOS: 05/03/25, XY CHEST XRAY 1 VIEW on DOS: 02/10/25 US CHEST ULTRASOUND on DOS: 05/03/25, XY CHEST PORTABLE on DOS: 05/03/25, XY CHEST XRAY 1 VIEW on DOS: 02/10/25 TECHNICAL DATA: 1 view of the chest was obtained. FINDINGS: Lines and tubes: Stable cardiac pacer. Cardiomediastinal silhouette: Enlarged Pulmonary vasculature: Prominent Lung expansion: Low Lung airspace: Bibasilar opacities. Lung interstitium: normal Pleura: Small right effusion. Pneumothorax: no Bones: Unremarkable Other: no IMPRESSION: Small right effusion, decreased from prior. No pneumothorax seen. Cardiomegaly with pulmonary vascular congestion. ATED BY: ROGER BROOKE MD DICTATED DATE/TIME: 05/04/25 1400 SIGNED BY: ROGER BROOKE MD SIGNED DATE/TIME: 05/04/25 1400 PATIENT: AGUSTIN LEDESMA ACCT: [id number] UNIT: [id number] : 1970 [facility] AGE / SEX: 55 / M ADM STATUS: ADM IN SERVICE 0800 ORDERING PHYSICIAN: ANGIE URIBE PROCEDURE(s): THORA - THORACENTESIS REASON: right pleural effusion ORDER NUMBER(s): [id number], ACCESSION NUMBER(s): [id number] US THORACENTESIS HISTORY: right pleural effusion PROCEDURE: Informed consent was obtained. The patient was seated on the bed. A limited localization ultrasound of the right thorax was obtained, and the optimal approach was marked on the skin. The area was prepped with chlorhexidine which was allowed to dry and draped in the usual sterile fashion. Time out was performed. The skin and the soft tissues were infiltrated with 1% lidocaine. A 5.5 Haitian centesis needle catheter was advanced into right pleural space. Following aspiration of fluid, the catheter was advanced and the needle removed. About 1500 cc of fluid was drained. Specimen/s was/were sent for appropriate cultures/cytology/cultures and cytology. No immediate complication was identified. FINDINGS: Moderate right pleural effusion. Aspirated fluid is clear and serous. IMPRESSION: Right thoracentesis with 1.5L removed. ATED BY: ROGER BROOKE MD DICTATED DATE/TIME: 05/04/251356 SIGNED BY: ROGER BROOKE MD SIGNED DATE/TIME: 05/04/25 1357 ATIENT: AGUSTIN LEDESMA ACCT: [id number] UNIT: [id number] : 1970 LOC: OVERFLOW ROOM / BED: [address] [place] [address] AGE / SEX: 55 / M ADM STATUS: ADM IN SERVICE 29 ORDERING PHYSICIAN: ANGIE URIBE RESIDENT PROCEDURE(s): BLDVT - BiLat Lower DVT REASON: rule out dvt ORDER NUMBER(s): [id number], ACCESSION NUMBER(s): [id number] CLINICAL HISTORY: rule out dvt TECHNIQUE: Color and duplex doppler imagine of the bilateral lower extremity veins was performed. Vessel compression and augmentation if possible was also performed. COMPARISON: US BILAT LOWER DVT on DOS: 01/03/25 FINDINGS: Right Lower Extremity: Right common femoral vein: Normal compressibility and flow. Right superficial femoral vein: Normal compressibility and flow. Right popliteal vein: Normal compressibility and flow. There is a nonspecific 7 mm lymph node. Left Lower Extremity: Left common femoral vein: Normal compressibility and flow. Left superficial femoral vein: Normal compressibility and flow. Left popliteal vein: Normal compressibility and flow. There is a nonspecific 7 mm lymph node. IMPRESSION: No sonographic evidence for DVT in the bilateral lower extremities. Bilateral nonspecific 7 mm groin lymph nodes. PATIENT: AGUSTIN LEDESMA ACCT: [id number] UNIT: [id number] : 1970 LOC: OVERFLOW ROOM / BED: [address] [place] [address] AGE / SEX: 55 / M ADM STATUS: ADM IN SERVICE 1258 ORDERING PHYSICIAN: ANGIE URIBE RESIDENT PROCEDURE(s): RLEX - LOWER EXTREMITY NON JOINT RIGH REASON: RULE OUT ABCESS ORDER NUMBER(s): [id number], ACCESSION NUMBER(s): [id number] EXAM: CT LOWER EXTREMITY NON JOINT RIGH INDICATION: RULE OUT ABCESS TECHNIQUE: Axial images of right lower extremity without contrast have been obtained along with coronal and sagittal reformatted images. All CT scans at this facility use dose modulation, iterative reconstruction, and/or weight based dosing when appropriate to reduce radiation dose to as low as reasonably achievable. COMPARISON: CT CT L FOOT WO CONTRAST on DOS: 01/03/25 FINDINGS: BONES: No CT evidence of an acute fracture or aggressive osseous lesion. Vascular calcifications. MUSCLES: Extensive surrounding subcutaneous adipose tissue edema. JOINT SPACES: Trace knee joint effusion. TENDONS/LIGAMENTS: Intact. OTHER: No definitive drainable measurable fluid collection allowing for limitation without intravenous contrast. No soft tissue emphysema. IMPRESSION: 1. No definitive drainable measurable fluid collection allowing for limitation on CT analysis. 2. Extensive surrounding subcutaneous adipose tissue edema. PATIENT: AGUSTIN LEDESMA ACCT: [id number] UNIT: [id number] : 1970 LOC: OVERFLOW ROOM / [facility] / [facility] AGE / SEX: 55 / M ADM STATUS: ADM IN SERVICE 1258 ORDERING PHYSICIAN: ANGIE URIBE PROCEDURE(s): LLEX - LEFT LOWER EXTREMITY W/O CON REASON: R/O ABCESS ORDER NUMBER(s): [id number], ACCESSION NUMBER(s): [id number] EXAM: CT LEFT LOWER EXTREMITY W/O CON INDICATION: R/O ABCESS TECHNIQUE: Axial images of left lower extremity without contrast have been obtained along with coronal and sagittal reformatted images. All CT scans at this facility use dose modulation, iterative reconstruction, and/or weight based dosing when appropriate to reduce radiation dose to as low as reasonably achievable. COMPARISON: CT LOWER EXTREMITY NON JOINT RIGH on DOS: 05/03/25 FINDINGS: BONES: No CT evidence of an acute fracture or aggressive osseous lesion. Vascular calcifications. MUSCLES: Surrounding subcutaneous adipose tissue edema. JOINT SPACES: Trace knee joint fluid. TENDONS/LIGAMENTS: Intact. OTHER: No drainable fluid collection identified. Allowing for limitation, no CT evidence of definitive drainable fluid collection/abscess. IMPRESSION: 1. No CT evidence of an acute fracture. 2. No drainable fluid collection identified. PATIENT: AGUSTIN LEDESMA ACCT: [id number] UNIT: [id number] : 1970 LOC: OVERFLOW ROOM / BED: 1021-ER / A AGE / SEX: 55 / M ADM STATUS: ADM IN SERVICE 1258 ORDERING PHYSICIAN: ANGIE URIBE PROCEDURE(s): CHSTU - CHEST ULTRASOUND REASON: RIGHT PLEURAL EFFUSION, POSSIBLE THORACENTESIS ORDER NUMBER(s): [id number], ACCESSION NUMBER(s): [id number] Bilateral Chest Sonogram Date: 05/03/2025 01:26 PM Clinical history: RIGHT PLEURAL EFFUSION, POSSIBLE THORACENTESIS Technique: Grayscale sonographic images of bilateral pleural cavity obtained. Images submitted: 8 Findings: Limited sonographic evaluation of the right and left chest was performed to localize and anup fluid for thoracentesis. There is a moderate right and small left pleural effusion. IMPRESSION: 1. Moderate right and small left pleural effusion. END IMPRESSION: PATIENT: AGUSTIN LEDESMA ACCT: [id number] UNIT: [id number] : 1970 LOC: ER ROOM / BED: / AGE / SEX: 55 / M ADM STATUS: REG ER SERVICE 1048 ORDERING PHYSICIAN: LUZ MARIA JOHNSON MD PROCEDURE(s): CXRP - CHEST PORTABLE REASON: sob ORDER NUMBER(s): [id number], ACCESSION NUMBER(s): [id number] EXAM: XY CHEST PORTABLE Indication: sob Technique: Single frontal view of the chest was obtained Comparison: XY CHEST XRAY 1 VIEW on DOS: 02/10/25, CT CHEST WITHOUT CONTRAST on DOS: 02/07/25, XY CHEST XRAY 1 VIEW on DOS: 02/06/25, XY CHEST PORTABLE on DOS: 01/31/25, XY CHEST TWO VIEWS ROUTINE on DOS: 01/04/25 FINDINGS: Lines and Tubes: Cardiac pacemaker projects over left chest wall. Lungs: Moderate right pleural effusion and right basilar opacity. No pneumothorax. Cardiomediastinal contours: Cardiomegaly Bones: No acute osseous abnormality. IMPRESSION: Moderate right pleural effusion and right basilar opacity. Condition at Discharge: Stable Final Diagnosis/Problems List #Acute respiratory failure #Acute on chronic systolic congestive heart failure (HFrEF, LVEF 25%) - status post ICD placement #Pulmonary hypertension #Coronary artery disease s/p CABG and PTCA #Ischemic cardiomyopathy # Right pleural effusion, transudate #Bilateral lower limb cellulitis #Ruled out DVT #Chronic kidney disease, stage 3 #Essential hypertension #Type 2 diabetes mellitus with hyperglycemia Discharge Disposition: Home Discharge Instruct/Medications Diet: Cardiac 2g Na,low cholest Activity: No Restrictions, As Tolerated Follow Up/Referral: Follow up with PCP within 1 week Medications: see prescription Continue home medications Scheduled Aspirin (Aspirin Low Dose), 1 TAB PO DAILY, (Reported) Carvedilol (Carvedilol), 1 TAB PO BID, (Reported) Clopidogrel Bisulfate (Clopidogrel), 1 TAB PO DAILY, (Reported) Empagliflozin (Jardiance), 1 TAB PO DAILY, (Reported) Furosemide (Furosemide), 1 TAB PO DAILY, (Reported) Furosemide (Furosemide), 1 TAB PO BID, (Reported) Metformin Hydrochloride (Metformin Hcl), 1 TAB PO BID, (Reported) Scheduled PRN Docusate Sodium (Docusate Sodium), 1 CAP PO QHSP PRN for FOR CONSTIPATION, (Reported) Doxycycline (Monohydrate) (Doxycycline), 100 MG PO BID PRN Miscellaneous Medications Gabapentin (Gabapentin), 1 CAP PO, (Reported) Polyethylene Glycol 3350 (Eql Clearlax), (Reported) Discharge Statement: "Patient was advised to return to the ER or call 911 if any headaches, dizziness, shortness of breath, chest pain, abdominal pain, bleeding, fevers, or worsening of medical condition. Patient was counseled about treatment plan, medications, possible side effects, patientverbalized understanding. All questions were answered to the best of my ability. This discharge took greater then 30 minutes in planning, reviewing documentation, counseling the patient, and discussing with other team members." ASSESSMENT ASSESSMENT Assessment #Acute respiratory failure #Acute on chronic systolic congestive heart failure (HFrEF, LVEF 25%) - status post ICD placement #Pulmonary hypertension #Coronary artery disease s/p CABG and PTCA #Ischemic cardiomyopathy # Right pleural effusion, transudate #Bilateral lower limb cellulitis #Ruled out DVT #Chronic kidney disease, stage 3 #Essential hypertension #Type 2 diabetes mellitus with hyperglycemia Visit Coding STANDARD RES Billing Provider: CARMEN JONES MD Date of Service if different f: May 08, 2025 Common Visit Codes: 01094-AOD/OBS DISCH DAY >30min SAUNDRA PRINCE RESIDENT May 08, 2025 14:11
[2025-05-08 15:33] VITALS: BP 143/76; PULSE 69; TEMP 36.7
[2025-05-09] MEDS ORDERED: FURO1TAB31 PO (06:49)
== END 2025-05-08 16:30 | disposition home or self-care (01) | DRG 383 ==
LOC: ER 10:34 → OVERFLOW 12:58 → EAST 05-04 17:51
PROVIDERS: ADMIT Internal Medicine Geriatric Medicine; ATTEND Internal Medicine Geriatric Medicine
PROC: 0W993ZZ Drainage of Right Pleural Cavity, Percutaneous Approach (ICD-10-PCS; principal; 2025-05-04)
DX: L03.115 Cellulitis of right lower limb (principal); J96.00 Acute respiratory failure, unspecified whether with hypoxia or hypercapnia; I50.23 Acute on chronic systolic (congestive) heart failure; I27.20 Pulmonary hypertension, unspecified; J91.8 Pleural effusion in other conditions classified elsewhere; L03.116 Cellulitis of left lower limb; I13.0 Hypertensive heart and chronic kidney disease with heart failure and stage 1 through stage 4 chronic kidney disease, or unspecified chronic kidney disease; E11.22 Type 2 diabetes mellitus with diabetic chronic kidney disease; N18.30 Chronic kidney disease, stage 3 unspecified; Z79.84 Long term (current) use of oral hypoglycemic drugs; I25.10 Atherosclerotic heart disease of native coronary artery without angina pectoris; E11.65 Type 2 diabetes mellitus with hyperglycemia; I25.5 Ischemic cardiomyopathy; I25.2 Old myocardial infarction; Z95.1 Presence of aortocoronary bypass graft; Z95.810 Presence of automatic (implantable) cardiac defibrillator; Z95.5 Presence of coronary angioplasty implant and graft; Z79.899 Other long term (current) drug therapy; Z79.82 Long term (current) use of aspirin
CPT/HCPCS: 32555; 36415; 71045; 73700; 76604; 76942; 80048; 80053; 80061; 80307; 81001; 82306; 82607; 82962; 83036; 83605; 83615; 83735; 83880; 83986; 84100; 84443; 84484; 85025; 85610; 85730; 87040; 87070; 87205; 88341; 89051; 93970; 97110; 97116; 97163; 97530; 99291; 99292; G0378; J1815; J2405; J2543; J3490

== ENCOUNTER 2025-05-29 09:46 | Outpatient (CLI) | payer MEDICAID ==
[~2025-05-29 09:46] MED LIST changes: -ASPI-628 PO; -ASPI1TAB19 PO; -ATOR-507; -ATOR-507 PO; -ATOR20TA50 PO; -CARV-214 PO; -CARV3.1240 PO; -CLIN1CAP70 PO; -CLOP75TA28 PO; +DOCU-265 PO; +DOXY100C79 PO; +FURO1TAB31 PO; -FURO20TA3 PO; +GAB100C PO; +METF-370 PO; -METF-489 PO; -PANT40T PO; -SODI10PA PO; +[UNRECOGNIZED DRUG - CODE]
[2025-05-29 10:42] LABS: Hematocrit 29.0 % (41.0-53.0); Hemoglobin 9.5 g/dL (13.5-17.5); Mean Corpuscular Hemoglobin 27.9 pg (28.0-32.0); Mean Corpuscular Volume 85.5 fL (80.0-100.0); Nucleated Red Blood Cells % 0.1 %
[2025-05-29 11:06] LABS: Alanine Aminotransferase 31 U/L (7-40); Albumin 3.9 g/dL (3.2-4.8); Anion Gap 9 (5-15); BUN/Creatinine Ratio 22.0 (10.0-20.0); Bilirubin, Total 0.5 mg/dL (0.2-1.0); Carbon Dioxide 26 mmol/L (20-31); Chloride 104 mmol/L (98-107); Cholesterol 94 mg/dL (< 200); HDL Cholesterol 44 mg/dL (40-59); Potassium 4.9 mmol/L (3.5-5.1); Sodium 139 mmol/L (136-145); Total Protein 6.5 g/dL (5.7-8.2); Triglycerides 39 mg/dL (< 150)
[2025-05-29 11:12] LABS: Alkaline Phosphatase 353 U/L (46-116); Blood Urea Nitrogen 47 mg/dL (9-23); Calcium 8.4 mg/dL (8.7-10.4); Glucose 165 mg/dL (74-106)
== END 2025-05-29 17:00 | disposition home or self-care (01) ==
LOC: LAB 09:46
PROVIDERS: ATTEND Internal Medicine
DX: I13.0 Hypertensive heart and chronic kidney disease with heart failure and stage 1 through stage 4 chronic kidney disease, or unspecified chronic kidney disease (principal); E11.22 Type 2 diabetes mellitus with diabetic chronic kidney disease; N18.9 Chronic kidney disease, unspecified; I50.9 Heart failure, unspecified; L03.115 Cellulitis of right lower limb; Z00.01 Encounter for general adult medical examination with abnormal findings
CPT/HCPCS: 36415; 80053; 80061; 83036; 85025